=== PATIENT | male | born 1985 | race African-American/Black ===

== ENCOUNTER 2016-11-04 00:07 | Emergency (ER) | payer SELFPAY ==
[2016-11-04 00:18] VITALS: BP 157/70; PULSE 66; RESP 20; TEMP 98.5
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
[2016-11-04] MEDS ORDERED: HYDROcodone/APAP 5-325MG 1 EACH TAB PO STA (00:53)
--- NOTE | 2016-11-04 01:08 | XR ---
EXAMINATION TYPE: XR chest 1V DATE OF EXAM: 11/04/2016 12:53 AM COMPARISON: NONE HISTORY: Fall with back pain TECHNIQUE: Single frontal view of the chest is obtained. FINDINGS: Heart and mediastinum are normal. Lungs are clear. Diaphragm is normal. Bony thorax appear s normal. IMPRESSION: Normal chest. No pneumothorax.
--- NOTE | 2016-11-04 01:09 | XR ---
EXAMINATION TYPE: XR thoracic spine 2V DATE OF EXAM: 11/04/2016 12:53 AM COMPARISON: NONE HISTORY: Fall with back pain TECHNIQUE: 3 views FINDINGS: Thoracic vertebra have normal spacing and alignment. There is no sign of compression fractu re. There is no paraspinal mass. Posterior elements appear intact. IMPRESSION: Normal thoracic spine.
== END 2016-11-04 01:06 | disposition home or self-care (01) ==
LOC: EC 00:07
DX: M54.6 Pain in thoracic spine (principal); F17.200 Nicotine dependence, unspecified, uncomplicated
CPT/HCPCS: 71010; 72070; 99283

== ENCOUNTER 2021-02-05 19:47 | Inpatient (IN) | payer OTHER ==
[2021-02-05] MEDS ORDERED: SODIUM CHLORIDE 0.9% 1,000 ML IV STA (19:59)
[2021-02-05] MEDS ORDERED: DIAZEPAM 5 MG/ML 2 ML INJ IVP STA (19:59)
[2021-02-05] MEDS ORDERED: THIAMINE 100 MG/ML 2 ML VIAL IM STA (20:00)
--- NOTE | 2021-02-05 20:20 | ED ---
General Adult HPI - General Chief complaint: Seizure Stated complaint: Seizure Time Seen by Provider: 02/05/21 19:50 Source: patient, EMS, RN notes reviewed, old records reviewed Mode of arrival: EMS Limitations: no limitations - History of Present Illness Initial comments: 35-year-old male presenting with suspected seizure. EMS had been called with al tered mental status and seizure activity. Patient reports that he quit drinking alcohol approximately 2 or 3 days ago. He is alert and oriented to time my evaluation with no specific complaints, no headache, no focal numbness or weakness. He states that he was drinking approximately 2 pints daily and abruptly stopped 2 days prior. He is not on any antiepileptic medication and has history of 1 previous seizure several months ago. - Related Data Previous Rx's Medication Instructions Recorded Hydrocodone/Acetaminophen [[place] 1 each PO Q6HR PRN #10 tab 11/04/16 5-325] Ibuprofen [Motrin] 600 mg PO Q6HR PRN #20 tab 11/04/16 Orphenadrine [Norflex] 100 mg PO Q12H #10 tablet.er 11/04/16 Allergies Allergy/AdvReac Type Severity Reaction Status Date / Time No Known Allergies Allergy Verified 11/04/16 00:16 Review of Systems ROS Statement: Those systems with pertinent positive or pertinent negative responses have been documented in the HPI. ROS Other: All systems not noted in ROS Statement are negative. Past Medical History Past Medical History: No Reported History Additional Past Medical History / Comment(s): seziures x2 History of Any Multi-Drug Resistant Organisms: None Reported Past Surgical History: No Surgical Hx Reported Additional Past Surgical History / Comment(s): chest tube Past Psychological History: No Psychological Hx Reported Smoking Status: Current every day smoker Past Alcohol Use History: None Reported, Occasional Past Drug Use History: None Reported General Exam Limitations: no limitations General appearance: alert, in no apparent distress Head exam: Present: atraumatic, normocephalic Eye exam: Present: normal appearance, PERRL ENT exam: Present: normal exam Neck exam: Present: normal inspection. Absent: tenderness, meningismus Respiratory exam: Present: normal lung sounds bilaterally. Absent: respiratory distress, wheezes Cardiovascular Exam: Present: regular rate, normal rhythm GI/Abdominal exam: Present: soft. Absent: distended, tenderness, guarding Extremities exam: Present: normal inspection, normal capillary refill. Absent: pedal edema, calf tenderness Neurological exam: Present: alert, oriented X3, CN II-XII intact. Absent: motor sensory deficit Psychiatric exam: Present: anxious, other (Tremulous) Skin exam: Present: warm, dry, intact Course Vital Signs 02/05/21 02/05/21 19:57 21:05 Temperature 98.2 F Pulse Rate 111 H 93 Respiratory 18 16 Rate Blood Pressure 162/116 155/111 O2 Sat by Pulse 98 99 Oximetry EKG Findings - EKG Comments: EKG Findings:: Normal sinus rhythm, prolonged QT, rate of 86, MI interval 148, QRS duration 94, QTC 490 Medical Decision Making - Medical Decision Making 35-year-old male presenting with suspected seizure, alcohol withdrawal. Patient is alert and oriented, he is tremulous, upon arrival with no focal findings. CT performed negative for traumatic injury, negative for acute findings. Patient has normal CBC, he has some mild hyponatremia CO2 of 18 likely secondary to seizure. His magnesium is 0.9 which is replaced with 2 g of IV magnesium. He is given both Valium and ativan started on a CIWA Scale - Lab Data Result diagrams: 02/05/21 19:59 02/05/21 19:59 Lab Results 02/05/21 02/05/21 Range/Units 19:59 19:59 WBC 6.1 (3.8-10.6) k/uL RBC 3.97 L (4.30-5.90) m/uL Hgb 14.3 (13.0-17.5) gm/dL Hct 39.9 (39.0-53.0) % MCV 100.4 H (80.0-100.0) fL MCH 36.0 H (25.0-35.0) pg MCHC 35.9 (31.0-37.0) g/dL RDW 15.2 (11.5-15.5) % Plt Count 105 L (150-450) k/uL MPV 8.5 Neutrophils % 85 % Lymphocytes % 10 % Monocytes % 4 % Eosinophils % 0 % Basophils % 1 % Neutrophils # 5.2 (1.3-7.7) k/uL Lymphocytes # 0.6 L (1.0-4.8) k/uL Monocytes # 0.3 (0-1.0) k/uL Eosinophils # 0.0 (0-0.7) k/uL Basophils # 0.0 (0-0.2) k/uL Macrocytosis Slight Sodium 136 L (137-145) mmol/L Potassium 3.5 (3.5-5.1) mmol/L Chloride 99 (98-107) mmol/L Carbon Dioxide 18 L (22-30) mmol/L Anion Gap 19 mmol/L BUN 6 L (9-20) mg/dL Creatinine 0.74 (0.66-1.25) mg/dL Est GFR (CKD-EPI)AfAm >90 (>60 ml/min/1.73 sqM) Est GFR (CKD-EPI)NonAf >90 (>60 ml/min/1.73 sqM) Glucose 107 H (74-99) mg/dL Calcium 9.1 (8.4-10.2) mg/dL Magnesium 0.9 L* (1.6-2.3) mg/dL Total Bilirubin 1.4 H (0.2-1.3) mg/dL AST 331 H (17-59) U/L ALT 63 H (4-49) U/L Alkaline Phosphatase 181 H (38-126) U/L Total Protein 7.4 (6.3-8.2) g/dL Albumin 4.7 (3.5-5.0) g/dL Disposition Clinical Impression: Generalized seizure, Hypomagnesemia, Alcohol withdrawal Disposition: ADMITTED IP TO THIS [facility] Condition: Stable Is patient prescribed a controlled substance at d/c from ED?: No Referrals: None,Stated [Primary Care Provider] - 1-2 days Decision to Admit Reason: Admit from EC Decision Date: 02/05/21 Decision Time: 21:26
[2021-02-05 20:38] LABS: Basophils % (A) 1 %; Eosinophils % (A) 0 %; HCT 39.9 % (39.0-53.0); HGB 14.3 gm/dL (13.0-17.5); Lymphocytes # (A) 0.6 k/uL (1.0-4.8); Lymphocytes % (A) 10 %; MCHC 35.9 g/dL (31.0-37.0); MCV 100.4 fL (80.0-100.0); Macrocytosis Slight; Mean Platelet Volume 8.5; Monocytes # (A) 0.3 k/uL (0-1.0); Monocytes % (A) 4 %; Neutrophils # (A) 5.2 k/uL (1.3-7.7); Neutrophils % (A) 85 %; Platelet Count 105 k/uL (150-450); RBC 3.97 m/uL (4.30-5.90); RDW 15.2 % (11.5-15.5); WBC 6.1 k/uL (3.8-10.6)
[2021-02-05 20:50] LABS: ALT 63 U/L (4-49); AST 331 U/L (17-59); African American GFR (CKD) >90 (>60 ml/min/1.73 sqM); Albumin 4.7 g/dL (3.5-5.0); Alkaline Phosphatase 181 U/L (38-126); Anion Gap 19 mmol/L; Blood Urea Nitrogen 6 mg/dL (9-20); Calcium 9.1 mg/dL (8.4-10.2); Carbon Dioxide 18 mmol/L (22-30); Chloride 99 mmol/L (98-107); Glucose 107 mg/dL (74-99); Non-African American GFR(CKD) >90 (>60 ml/min/1.73 sqM); Potassium 3.5 mmol/L (3.5-5.1); Sodium 136 mmol/L (137-145); Total Bilirubin 1.4 mg/dL (0.2-1.3); Total Protein 7.4 g/dL (6.3-8.2)
[2021-02-05 21:00] LABS: Magnesium 0.9 mg/dL (1.6-2.3)
[2021-02-05] MEDS: LORazepam 2 MG/ML INJ IV PRN ×2 (21:02→22:23)
--- NOTE | 2021-02-05 21:12 | CT ---
EXAMINATION TYPE: CT brain wo con DATE OF EXAM: 02/05/2021 COMPARISON: None HISTORY: seizure CT DLP: 1105.4 mGycm Automated exposure control for dose reduction was used. Ventricles and sulci appear normal. There is no mass effect nor midline shift. There is no sign of in tracranial hemorrhage. Calvarium is intact. Skull base is intact. IMPRESSION: Negative unenhanced head CT scan.
[2021-02-05] MEDS: MAGNESIUM SULFATE-D5W PMX 1 GM in DEXTROSE/WATER 1 100ML.BAG IVPB SCH ×2 (21:26→22:24)
[2021-02-05] MEDS ORDERED: NALOXONE 0.4 MG/ML 1 ML VIAL IV PRN (21:29)
[2021-02-05] MEDS: SODIUM CHLORIDE 0.9% 1,000 ML IV SCH (22:22)
[2021-02-06] MEDS: LORazepam 2 MG/ML INJ IV PRN ×3 (00:40→08:19)
[2021-02-06] MEDS: THIAMINE 100 MG TAB PO SCH ×2 (06:36→17:39)
[2021-02-06 09:10] LABS: Basophils % (A) 0 %; Eosinophils % (A) 1 %; HCT 35.7 % (39.0-53.0); HGB 12.7 gm/dL (13.0-17.5); Lymphocytes % (A) 22 %; MCH 35.5 pg (25.0-35.0); MCHC 35.5 g/dL (31.0-37.0); MCV 99.9 fL (80.0-100.0); Macrocytosis Slight; Monocytes # (A) 0.2 k/uL (0-1.0); Monocytes % (A) 4 %; Neutrophils # (A) 3.2 k/uL (1.3-7.7); Neutrophils % (A) 71 %; RBC 3.57 m/uL (4.30-5.90); RDW 15.2 % (11.5-15.5); WBC 4.5 k/uL (3.8-10.6)
[2021-02-06 09:28] LABS: ALT 58 U/L (4-49); AST 367 U/L (17-59); African American GFR (CKD) >90 (>60 ml/min/1.73 sqM); Alkaline Phosphatase 149 U/L (38-126); Anion Gap 5 mmol/L; Blood Urea Nitrogen 3 mg/dL (9-20); Carbon Dioxide 28 mmol/L (22-30); Chloride 98 mmol/L (98-107); Glucose 165 mg/dL (74-99); Magnesium 1.5 mg/dL (1.6-2.3); Non-African American GFR(CKD) >90 (>60 ml/min/1.73 sqM); Sodium 131 mmol/L (137-145); Total Bilirubin 2.2 mg/dL (0.2-1.3); Total Protein 6.6 g/dL (6.3-8.2)
[2021-02-06 10:00] LABS: Potassium 2.6 mmol/L (3.5-5.1)
[2021-02-06 10:02] LABS: Platelet Count 89 k/uL (150-450)
[2021-02-06] MEDS ORDERED: Potassium Replacement Protocol 1 EACH MISC MISCELLANE PRN ×2 (10:20→19:26)
[2021-02-06] MEDS ORDERED: Magnesium Replacement Protocol 1 EACH MISC MISCELLANE PRN (10:21)
[2021-02-06] MEDS: MAGNESIUM SULFATE-D5W PMX 1 GM in DEXTROSE/WATER 1 100ML.BAG IVPB SCH ×2 (10:57→12:40)
[2021-02-06] MEDS: POTASSIUM CHLORIDE ER 20 MEQ TAB.ER PO SCH ×5 (10:57→20:41)
[2021-02-06] MEDS: SODIUM CHLORIDE 0.9% 1,000 ML IV SCH (10:58)
[2021-02-06 19:54] VITALS: TEMP 98.4
--- NOTE | 2021-02-06 20:11 | P.HPIM ---
History of Present Illness H&P Date: 02/06/21 Chief Complaint: seizures Patient is a 35-year-old male with known history of smoking, history of withdrawal seizures and alcohol use two-point today and recently quit 2 to 3 days ago presents to ER due to seizure activity. Patient was seen by his friend and EMS was called. Patient had altered mentation and was brought to ER. Patient states that he has been drinking 2 pints daily and abruptly stopped 2 days ago and trying to detox himself. Currently he is not taking any antiepileptic medications. Patient did have previous seizure several months ago due to alcohol withdrawal symptoms. Currently patient is awake alert and oriented. Denies any complaints of recent illnesses. No fever no chills. No cough or sputum production. No headache or dizziness or lightheadedness. No chest pain or shortness of the. No nausea vomiting or abdominal pain or diarrhea. Laboratory data showed WBC 6.1 hemoglobin 14.3 platelets 105 and MCV 100.4 Sodium 136 potassium 3.5 bicarb is 18 BUN 16 creatinine 0.74 magnesium 0.9 AST [birth year]1930 ALT 63 alk phos 181 and COVID-[address] head showed negative unenhanced head CT. EKG showed normal sinus rhythm blood pressure is 162/116 pulse at 111 and respiration 18 and pulse ox 98% on room air on admission. Review of Systems Constitutional: Patient denies any fever or chills . No generalized weakness or weight loss. Abdomen: Patient denied nausea vomiting and diarrhea and abdominal pain. Cardiovascular: Patient denies any chest pain or short of breath no palpitations. Respiratory: patient denied any cough or sputum production. No shortness of breath Neurologic: Patient denied any numbness or tingling headache. Musculoskeletal: Patient denies any complaints of joint swelling or deformity. Skin: Negative Psychiatric: Negative Endocrine: No heat or cold intolerance. No recent weight gain. Genitourinary: No dysuria or hematuria. All other 14 point ROS negative except the above Past Medical History Past Medical History: No Reported History Additional Past Medical History / Comment(s): seziures x2 History of Any Multi-Drug Resistant Organisms: None Reported Past Surgical History: No Surgical Hx Reported Additional Past Surgical History / Comment(s): chest tube Past Psychological History: No Psychological Hx Reported Smoking Status: Current every day smoker Past Alcohol Use History: Occasional Additional Past Alcohol Use History / Comment(s): 2 pints a day, recently quit 2 or 3 days ago Past Drug Use History: None Reported Medications and Allergies Home Medications Medication Instructions Recorded Confirmed Type No Known Home Medications 02/05/21 02/05/21 History Allergies Allergy/AdvReac Type Severity Reaction Status Date / Time No Known Allergies Allergy Verified 02/05/21 22:11 Physical Exam Vitals: Vital Signs Temp Pulse Pulse Resp BP BP Pulse Ox 02/06/21 11:09 98.6 F 82 20 151/98 02/06/21 07:41 98.5 F 74 20 163/114 02/06/21 03:30 78 18 02/06/21 02:45 98.1 F 78 18 178/116 97 02/06/21 00:35 93 18 178/119 98 02/05/21 21:45 83 18 161/113 98 02/05/21 21:05 93 16 155/111 99 02/05/21 19:57 98.2 F 111 H 18 162/116 98 Intake and Output 02/05/21 02/06/21 02/06/21 22:59 06:59 14:59 Intake Total 0 Output Total 1450 Balance -1450 Intake: Oral 0 Output: Urine 1450 Other: # Voids 1 Weight 77.111 kg 91.9 kg PHYSICAL EXAMINATION: Patient is lying in the bed comfortably, no acute distress, awake alert and oriented.shaky. HEENT: Normocephalic. Neck is supple. Pupils reactive. Nostrils clear. Oral cavity is moist. Ears reveal no drainage. Neck reveals no JVD, carotid bruits, or thyromegaly. CHEST EXAMINATION: Trachea is central. Symmetrical expansion. Lung swain clear to auscultation and percussion. CARDIAC: Normal S1, S2 with no gallops. No murmurs ABDOMEN: Soft. Bowel sounds normal. No organomegaly. No abdominal bruits. Extremities: reveal no edema. No clubbing or cyanosis Neurologically awake, alert, oriented x3 with well-coordinated movements. No focal deficits noted Skin: No rash or skin lesions. Psychiatric: Coperative. Nonsuicidal Musculoskeletal: No joint swelling or deformity. Normal range of motion. Results CBC & Chem 7: 02/06/21 08:43 02/06/21 18:46 Labs: Abnormal Lab Results - Last 24 Hours (Table) 02/05/21 02/05/21 02/06/21 Range/Units 19:59 19:59 08:43 RBC 3.97 L 3.57 L (4.30-5.90) m/uL Hgb 12.7 L (13.0-17.5) gm/dL Hct 35.7 L (39.0-53.0) % MCV 100.4 H (80.0-100.0) fL MCH 36.0 H 35.5 H (25.0-35.0) pg Plt Count 105 L 89 L (150-450) k/uL Lymphocytes # 0.6 L (1.0-4.8) k/uL Sodium 136 L (137-145) mmol/L Potassium (3.5-5.1) mmol/L Carbon Dioxide 18 L (22-30) mmol/L BUN 6 L (9-20) mg/dL Glucose 107 H (74-99) mg/dL Magnesium 0.9 L* (1.6-2.3) mg/dL Total Bilirubin 1.4 H (0.2-1.3) mg/dL AST 331 H (17-59) U/L ALT 63 H (4-49) U/L Alkaline Phosphatase 181 H (38-126) U/L 02/06/21 Range/Units 08:43 RBC (4.30-5.90) m/uL Hgb (13.0-17.5) gm/dL Hct (39.0-53.0) % MCV (80.0-100.0) fL MCH (25.0-35.0) pg Plt Count (150-450) k/uL Lymphocytes # (1.0-4.8) k/uL Sodium 131 L (137-145) mmol/L Potassium 2.6 L* (3.5-5.1) mmol/L Carbon Dioxide (22-30) mmol/L BUN 3 L (9-20) mg/dL Glucose 165 H (74-99) mg/dL Magnesium 1.5 L (1.6-2.3) mg/dL Total Bilirubin 2.2 H (0.2-1.3) mg/dL AST 367 H (17-59) U/L ALT 58 H (4-49) U/L Alkaline Phosphatase 149 H (38-126) U/L Thrombosis Risk Factor Assmnt - DVT/VTE Prophylaxis DVT/VTE Prophylaxis: Pharmacologic Prophylaxis ordered, Mechanical Prophylaxis ordered - Choose All That Apply Any of the Below Risk Factors Present?: No Other Risk Factors: No Other congenital or acquired thrombophilia - If yes, enter type in comment: No Thrombosis Risk Factor Assessment Level: Very Low Risk Assessment and Plan Assessment: Acute alcohol withdrawal seizures Alcohol abuse 2 pints daily quit 2 to 3 days ago Acute alcohol withdrawal symptoms Severe hypokalemia and hypomagnesemia Alcoholic hepatitis with elevated liver enzymes Hypovolemic hyponatremia Macrocytosis and thrombocytopenia secondary to alcoholic liver disease DVT prophylaxis with early ambulation Plan: Patient will be continued on IV hydration with normal saline. Seizure precautions and fall precautions and continue with alcohol withdrawal protocol. Currently thiamine and multivitamins and replace potassium and magnesium. Follow-up closely and further recommendations based on clinical course. Time with Patient: Greater than 30
[2021-02-07 00:13] VITALS: PULSE 95; RESP 16
[2021-02-07] MEDS: LORazepam 2 MG/ML INJ IV PRN ×3 (01:42→06:40)
[2021-02-07 05:27] VITALS: BP 167/90
[2021-02-07] MEDS: THIAMINE 100 MG TAB PO SCH (06:41)
--- NOTE | 2021-02-26 15:32 | P.DS ---
Providers Date of admission: 02/05/21 21:29 Expected date of discharge: 02/07/21 Attending physician: Edna Nava Primary care physician: Stated None Hospital Course: Discharge diagnosis Acute alcohol withdrawal seizures Alcohol abuse 2 pints daily quit 2 to 3 days ago Acute alcohol withdrawal symptoms Severe hypokalemia and hypomagnesemia Alcoholic hepatitis with elevated liver enzymes Hypovolemic hyponatremia Macrocytosis and thrombocytopenia secondary to alcoholic liver disease DVT prophylaxis with early ambulation Hospital course Patient is a 35-year-old male with known history of smoking, history of withdrawal seizures and alcohol use two-point today and recently quit 2 to 3 days ago presents to ER due to seizure activity. Patient was seen by his friend and EMS was called. Patient had altered mentation and was brought to ER. Patient states that he has been drinking 2 pints daily and abruptly stopped 2 days ago and trying to detox himself. Currently he is not taking any antiepileptic medications. Patient did have previous seizure several months ago due to alcohol withdrawal symptoms. Currently patient is awake alert and oriented. Denies any complaints of recent illnesses. No fever no chills. No cough or sputum production. No headache or dizziness or lightheadedness. No chest pain or shortness of the. No nausea vomiting or abdominal pain or diarrhea. Laboratory data showed WBC 6.1 hemoglobin 14.3 platelets 105 and MCV 100.4 Sodium 136 potassium 3.5 bicarb is 18 BUN 16 creatinine 0.74 magnesium 0.9 AST [birth year]28/1930 ALT 63 alk phos 181 and COVID-[address] head showed negative unenhanced head CT. EKG showed normal sinus rhythm blood pressure is 162/116 pulse at 111 and respiration 18 and pulse ox 98% on room air on admission. Patient was continued on IV hydration with normal saline. Seizure precautions and fall precautions and continue with alcohol withdrawal protocol. Currently thiamine and multivitamins and replace potassium and magnesium. Patient did not have any further episodes of seizures overnight. Continued on all call withdrawal protocol. Otherwise patient left AGAINST MEDICAL ADVICE today. Patient was counseled extensively for alcohol abstinence. Patient left againest medical advice.. Patient Condition at Discharge: Fair Plan - Discharge Summary Discharge Rx Participant: No New Discharge Prescriptions: No Action Ibuprofen [Motrin] 400 mg PO Q6HR PRN tab PRN Reason: Mild Pain Or Fever > 100.5 amLODIPine [Norvasc] 5 mg PO DAILY #30 tab Acetaminophen Tab [Tylenol] 650 mg PO Q6HR PRN tab PRN Reason: Mild Pain Or Fever > 100.5 levETIRAcetam [Keppra] 500 mg PO BID #60 tab Thiamine [Vitamin B-1] 100 mg PO BID-W/MEALS #60 tab Discharge Medication List Acetaminophen Tab [Tylenol] 650 mg PO Q6HR PRN tab 02/19/21 [Rx] Ibuprofen [Motrin] 400 mg PO Q6HR PRN tab 02/19/21 [Rx] Thiamine [Vitamin B-1] 100 mg PO BID-W/MEALS #60 tab 02/19/21 [Rx] amLODIPine [Norvasc] 5 mg PO DAILY #30 tab 02/19/21 [Rx] levETIRAcetam [Keppra] 500 mg PO BID #60 tab 02/19/21 [Rx] Follow up Appointment(s)/Referral(s): None,Stated [Primary Care Provider] - 1-2 days Discharge Disposition: Left Against Medical Advice
== END 2021-02-07 06:40 | disposition left against medical advice (07) | DRG 894 ==
LOC: EC 19:47 → 3SCARD 21:29
PROVIDERS: ADMIT Hospitalist; ATTEND Hospitalist
DX: F10.139 Alcohol abuse with withdrawal, unspecified (principal); E87.1 Hypo-osmolality and hyponatremia; K70.10 Alcoholic hepatitis without ascites; E83.42 Hypomagnesemia; F17.200 Nicotine dependence, unspecified, uncomplicated; E87.6 Hypokalemia; E86.1 Hypovolemia; R56.9 Unspecified convulsions; D69.59 Other secondary thrombocytopenia; D75.89 Other specified diseases of blood and blood-forming organs; Z79.899 Other long term (current) drug therapy; Z20.822 Contact with and (suspected) exposure to COVID-19
CPT/HCPCS: 36415; 70450; 80053; 83735; 84132; 85025; 85730; 87635; 93005; 96361; 96372; 96374; 96375; 99285

== ENCOUNTER 2021-02-08 06:07 | Emergency (ER) | payer OTHER ==
[2021-02-08 06:43] VITALS: BP 121/85; PULSE 119; RESP 16
[2021-02-08] MEDS ORDERED: SODIUM CHLORIDE 0.9% 1,000 ML IV STA (07:15)
[2021-02-08] MEDS ORDERED: LORazepam 2 MG/ML INJ IV STA (07:15)
--- NOTE | 2021-02-08 07:17 | ED ---
General Adult HPI - General Chief complaint: Seizure Stated complaint: Seizure Time Seen by Provider: 02/08/21 06:59 Source: patient, RN notes reviewed Mode of arrival: ambulatory Limitations: no limitations - History of Present Illness Initial comments: Patient is a pleasant 35-year-old male presenting to the emergency department following having a seizure this morning. Patient states this was witnessed by his roommate. Incident lasted approximately 5 minutes. Patient had generalized tonic-clonic reported activity. Patient states he was confuse following this however is feeling close to normal at this point. Patient states he recently quit taking alcohol. Patient states following the seizure he did drink a little bit of alcohol to help himself feel better. Patient was in the hospital just 2 days ago and states he left. Patient denies any injury or recent illness. - Related Data Home Medications Medication Instructions Recorded Confirmed No Known Home Medications 02/05/21 02/08/21 Allergies Allergy/AdvReac Type Severity Reaction Status Date / Time No Known Allergies Allergy Verified 02/08/21 07:42 Review of Systems ROS Statement: Those systems with pertinent positive or pertinent negative responses have been documented in the HPI. ROS Other: All systems not noted in ROS Statement are negative. Constitutional: Denies: weakness Eyes: Denies: eye pain ENT: Denies: ear pain Respiratory: Denies: cough Cardiovascular: Denies: chest pain Endocrine: Denies: fatigue Gastrointestinal: Denies: abdominal pain Genitourinary: Denies: urgency Musculoskeletal: Denies: back pain Skin: Denies: rash Neurological: Reports: as per HPI. Denies: headache Past Medical History Past Medical History: Seizure Disorder Additional Past Medical History / Comment(s): PNEUMOTHORAX History of Any Multi-Drug Resistant Organisms: None Reported Past Surgical History: No Surgical Hx Reported Additional Past Surgical History / Comment(s): LEFT ARM SURGERY, Past Anesthesia/Blood Transfusion Reactions: No Reported Reaction Past Psychological History: Anxiety, Depression Smoking Status: Current every day smoker Past Alcohol Use History: Daily Past Drug Use History: Marijuana - Past Family History Father Family Medical History: Unable to Obtain Mother Family Medical History: Coronary Artery Disease (CAD) General Exam Limitations: no limitations General appearance: alert, in no apparent distress Head exam: Present: atraumatic Eye exam: Present: normal appearance, PERRL Neck exam: Present: normal inspection. Absent: tenderness, meningismus Respiratory exam: Present: normal lung sounds bilaterally Cardiovascular Exam: Present: regular rate, normal rhythm GI/Abdominal exam: Present: soft. Absent: distended, tenderness Extremities exam: Present: normal inspection Neurological exam: Present: alert, oriented X3, CN II-XII intact. Absent: motor sensory deficit Expanded Neurological exam: Present: protecting the airway Patient oriented to: Present: person, place, time Speech: Present: fluid speech Cranial nerves: EOM's Intact: Normal Sensory exam: Upper Extremity Light Touch: Normal, Lower Extremity Light Touch: Normal Motor strength exam: RUE: 5, LUE: 5, RLE: 5, LLE: 5 Eye Response: (4) open spontaneously Motor Response: (6) obeys commands Verbal Response: (5) oriented Psychiatric exam: Present: normal affect, normal mood Skin exam: Present: normal color Course Vital Signs 02/08/21 06:39 Pulse Rate 119 H Respiratory 16 Rate Blood Pressure 121/85 O2 Sat by Pulse 97 Oximetry EKG Findings - EKG Comments: EKG Findings:: Sinus tachycardia 102. ID 152. QRS 106. QT 370. QTc 492. Normal axis. Normal QRS. No acute ST change. Medical Decision Making - Medical Decision Making Patient has eloped. Patient was alert and oriented 3. Nursing did state steady gait. - Lab Data Result diagrams: 02/08/21 07:21 02/08/21 07:21 Lab Results 02/08/21 02/08/21 Range/Units 07:21 07:21 WBC 6.3 (3.8-10.6) k/uL RBC 3.86 L (4.30-5.90) m/uL Hgb 14.1 (13.0-17.5) gm/dL Hct 39.2 (39.0-53.0) % MCV 101.5 H (80.0-100.0) fL MCH 36.6 H (25.0-35.0) pg MCHC 36.0 (31.0-37.0) g/dL RDW 15.7 H (11.5-15.5) % Plt Count 104 L (150-450) k/uL MPV 8.9 Neutrophils % 64 % Lymphocytes % 26 % Monocytes % 7 % Eosinophils % 1 % Basophils % 1 % Neutrophils # 4.0 (1.3-7.7) k/uL Lymphocytes # 1.6 (1.0-4.8) k/uL Monocytes # 0.4 (0-1.0) k/uL Eosinophils # 0.1 (0-0.7) k/uL Basophils # 0.0 (0-0.2) k/uL Macrocytosis Slight Sodium 141 (137-145) mmol/L Potassium 3.3 L (3.5-5.1) mmol/L Chloride 106 (98-107) mmol/L Carbon Dioxide 23 (22-30) mmol/L Anion Gap 12 mmol/L BUN 11 (9-20) mg/dL Creatinine 1.68 H (0.66-1.25) mg/dL Est GFR (CKD-EPI)AfAm 59 (>60 ml/min/1.73 sqM) Est GFR (CKD-EPI)NonAf 51 (>60 ml/min/1.73 sqM) Glucose 105 H (74-99) mg/dL Calcium 9.5 (8.4-10.2) mg/dL Magnesium 1.9 (1.6-2.3) mg/dL Total Bilirubin 1.1 (0.2-1.3) mg/dL AST 196 H (17-59) U/L ALT 67 H (4-49) U/L Alkaline Phosphatase 183 H (38-126) U/L Total Protein 7.4 (6.3-8.2) g/dL Albumin 4.5 (3.5-5.0) g/dL Serum Alcohol 316 H* mg/dL Disposition Clinical Impression: Generalized seizure, Alcohol intoxication Disposition: Left Against Medical Advice Is patient prescribed a controlled substance at d/c from ED?: No Referrals: None,Stated [Primary Care Provider] - 1-2 days Time of Disposition: 08:46
[2021-02-08 07:37] LABS: Basophils % (A) 1 %; Eosinophils # (A) 0.1 k/uL (0-0.7); Eosinophils % (A) 1 %; HCT 39.2 % (39.0-53.0); HGB 14.1 gm/dL (13.0-17.5); Lymphocytes # (A) 1.6 k/uL (1.0-4.8); Lymphocytes % (A) 26 %; MCH 36.6 pg (25.0-35.0); MCV 101.5 fL (80.0-100.0); Macrocytosis Slight; Mean Platelet Volume 8.9; Monocytes # (A) 0.4 k/uL (0-1.0); Monocytes % (A) 7 %; Neutrophils % (A) 64 %; Platelet Count 104 k/uL (150-450); RBC 3.86 m/uL (4.30-5.90); RDW 15.7 % (11.5-15.5); WBC 6.3 k/uL (3.8-10.6)
[2021-02-08 07:50] LABS: Albumin 4.5 g/dL (3.5-5.0); Calcium 9.5 mg/dL (8.4-10.2); Magnesium 1.9 mg/dL (1.6-2.3); Potassium 3.3 mmol/L (3.5-5.1); Total Bilirubin 1.1 mg/dL (0.2-1.3); Total Protein 7.4 g/dL (6.3-8.2)
== END 2021-02-08 08:45 | disposition left against medical advice (07) ==
LOC: EC 06:07
DX: G40.909 Epilepsy, unspecified, not intractable, without status epilepticus (principal); F10.129 Alcohol abuse with intoxication, unspecified; F17.200 Nicotine dependence, unspecified, uncomplicated
CPT/HCPCS: 93005; 80053; 83735; 85025; 99284; 96360; G0480; 80320

== ENCOUNTER 2021-02-18 14:57 | Inpatient (IN) | payer OTHER ==
[2021-02-18] MEDS ORDERED: ACETAMINOPHEN TAB 500 MG TAB PO STA (15:10)
[2021-02-18] MEDS ORDERED: SODIUM CHLORIDE 0.9% 500 ML 500 ML IV ONE (15:10)
[2021-02-18] MEDS ORDERED: SODIUM CHLORIDE 0.9% 1,000 ML IV ONE (15:10)
[2021-02-18] MEDS ORDERED: LIDOCAINE 1% INJ 10MG/ML (20 ML MDV) SQ ONE (15:13)
[2021-02-18 15:21] LABS: Basophils # (A) 0.1 k/uL (0-0.2); Basophils % (A) 1 %; Eosinophils # (A) 0.1 k/uL (0-0.7); Eosinophils % (A) 1 %; HCT 40.5 % (39.0-53.0); HGB 14.2 gm/dL (13.0-17.5); Lymphocytes # (A) 1.1 k/uL (1.0-4.8); Lymphocytes % (A) 10 %; MCH 35.7 pg (25.0-35.0); MCV 102.2 fL (80.0-100.0); Macrocytosis Slight; Mean Platelet Volume 7.8; Monocytes # (A) 0.4 k/uL (0-1.0); Monocytes % (A) 4 %; Neutrophils # (A) 9.1 k/uL (1.3-7.7); Neutrophils % (A) 84 %; RBC 3.97 m/uL (4.30-5.90); RDW 14.5 % (11.5-15.5); WBC 10.8 k/uL (3.8-10.6)
[2021-02-18 15:27] LABS: Platelet Count 172 k/uL (150-450)
[2021-02-18 15:30] LABS: AST 234 U/L (17-59); African American GFR (CKD) >90 (>60 ml/min/1.73 sqM); Albumin 4.8 g/dL (3.5-5.0); Alcohol <10 mg/dL; Alkaline Phosphatase 181 U/L (38-126); Anion Gap 16 mmol/L; Blood Urea Nitrogen 6 mg/dL (9-20); Calcium 9.4 mg/dL (8.4-10.2); Carbon Dioxide 17 mmol/L (22-30); Chloride 102 mmol/L (98-107); Glucose 182 mg/dL (74-99); Non-African American GFR(CKD) >90 (>60 ml/min/1.73 sqM); Phosphorus 1.8 mg/dL (2.5-4.5); Potassium 3.1 mmol/L (3.5-5.1); Sodium 135 mmol/L (137-145); Total Bilirubin 2.8 mg/dL (0.2-1.3); Total Protein 7.5 g/dL (6.3-8.2)
[2021-02-18 15:36] LABS: ALT 58 U/L (4-49)
[2021-02-18 15:43] LABS: Magnesium 0.9 mg/dL (1.6-2.3)
[2021-02-18] MEDS ORDERED: SODIUM CHLORIDE 0.9% 1,000 ML IV STA (15:50)
--- NOTE | 2021-02-18 15:50 | ED ---
Fall HPI - General Chief Complaint: Fall Stated Complaint: Fall Source: patient Mode of arrival: ambulatory - History of Present Illness Initial Comments: The patient apparently was on the phone with a friend when he went unconscious. This apparently was unwitnessed. He does not remember what happened. He apparently fell and obtained a laceration underneath his left eyebrow. He complains of a slight headache. He apparently was walking back from the [employer] [place] with a pint of alcohol but didn't not start drinking it as of yet. He denies any alcohol usage today. He does have a significant history of alcohol abuse. He also has a history of a seizure disorder. He states that he thinks that he may have had a seizure. He relates that he is not on any medications for his seizures as of yet. These may be alcohol withdrawal related types of seizures. He denies any other injuries. He states his last tetanus was within 5 years. He was here twice in the last month and apparently eloped or left AGAINST MEDICAL ADVICE. No other complaints or modifying factors. He apparently has had seizures for the last couple of years. He has never followed up with a neurologist. He states that his last drink was over a week ago. - Related Data Home Medications Medication Instructions Recorded Confirmed No Known Home Medications 02/05/21 02/18/21 Allergies Allergy/AdvReac Type Severity Reaction Status Date / Time No Known Allergies Allergy Verified 02/18/21 16:49 Review of Systems ROS Statement: Those systems with pertinent positive or pertinent negative responses have been documented in the HPI. ROS Other: All systems not noted in ROS Statement are negative. Past Medical History Past Medical History: Seizure Disorder Additional Past Medical History / Comment(s): PNEUMOTHORAX History of Any Multi-Drug Resistant Organisms: None Reported Past Surgical History: No Surgical Hx Reported Additional Past Surgical History / Comment(s): LEFT ARM SURGERY, Past Anesthesia/Blood Transfusion Reactions: No Reported Reaction Past Psychological History: Anxiety, Depression Smoking Status: Current every day smoker Past Alcohol Use History: Daily Past Drug Use History: Marijuana - Past Family History Father Family Medical History: Unable to Obtain Mother Family Medical History: Coronary Artery Disease (CAD) General Exam - General Exam Comments Initial Comments: GENERAL: The patient is well nourished and well hydrated. VITAL SIGNS: Heart rate, blood pressure, respiratory rate reviewed as recorded in nurse's notes. EYES: Pupils are round and reactive. Extraocular movements are intact. No conjunctival / lid redness or swelling. ENT: There is a 2 cm superficial laceration directly under the left eyebrow. Airway is patent. Throat is clear. There is left maxillary swelling and significant tenderness with moderate abrasion noted. NECK: Nontender. No swelling or evidence of injury otherwise. No subcutaneous emphysema. Trachea is midline. No thyroid mass. HEART: Regular rate and rhythm. Good peripheral pulses. LUNGS/CHEST: Breath sounds clear and equal bilaterally. No rales, rhonchi, or wheezes. No ecchymosis, subcutaneous emphysema, or tenderness. ABDOMEN: Abdomen soft without tenderness. No palpable masses or organomegaly. No peritoneal signs. No abdominal wall swelling or ecchymosis. EXTREMITIES: No extremity tenderness. Normal muscle tone and function. No thoracolumbar tenderness. NEUROLOGIC: Sensation is grossly intact. Cranial nerve exam reveals face is symmetrical, tongue is midline, speech is clear. SKIN: No abrasions or ecchymosis is noted. No induration or masses noted. Laceration is noted underneath the left eyebrow as above. Abrasion noted to the left face. PSYCHIATRIC: Alert and oriented. Appropriate behavior and judgment. Limitations: no limitations Course Vital Signs 02/18/21 02/18/21 02/18/21 15:00 16:15 18:00 Temperature 98 F Pulse Rate 107 H 94 96 Respiratory 18 16 16 Rate Blood Pressure 172/118 169/112 185/116 O2 Sat by Pulse 98 96 96 Oximetry 02/18/21 19:03 Temperature Pulse Rate 104 H Respiratory 16 Rate Blood Pressure 173/108 O2 Sat by Pulse 96 Oximetry Medical Decision Making - Medical Decision Making The patient was seen and examined. All diagnostics are reviewed. The old records are also reviewed. His magnesium came back very low and he receives 2 g of magnesium intravenously. His CO2 was also low at 17 and he receives ample fluid hydration. The EKG shows a sinus tachycardia at a rate of 110. There is no acute ST-T wave changes noted. The [place] intervals 144, QRS duration is 94, and the QTc interval is 473. He does receive some Tylenol for his headache. The patient initially had a computed tomography scan of the brain and facial bones and this does not show any fracture or acute pathology other than some soft tissue swelling to the left face. While walking to the bathroom with the nurse, the patient had another seizure. He fell and hit his head on the rail. He had approximately 1 minute long tonic clonic seizure witnessed by myself. He then received 2 mg of Ativan intravenously. Keppra was also started intravenously. A repeat computed tomography scan of the brain and cervical spine was then done and does not show any acute abnormalities. Due to his recurrent seizures, dehydration, hypomagnesemia it is felt as though he would require admission to the hospital. The laboratory did come back showing a significant decrease in the CO2 at 17. The magnesium is severely low as well. In addition, his phosphorus is low and this is replaced. His potassium is also low and this is replaced both intravenously and orally. He is agreeable with admission. He is back to normal mental status on recheck. It is felt as though his seizures may potentially be intrinsic in nature although I'll call withdrawal still certainly is possible. He will be maintained on CIWA protocol. Case will be discussed with internal medicine and he will be admitted with neurology to consult. - Lab Data Result diagrams: 02/18/21 15:14 02/18/21 15:14 Lab Results 02/18/21 02/18/21 02/18/21 Range/Units 15:14 15:14 15:14 WBC 10.8 H (3.8-10.6) k/uL RBC 3.97 L (4.30-5.90) m/uL Hgb 14.2 (13.0-17.5) gm/dL Hct 40.5 (39.0-53.0) % MCV 102.2 H (80.0-100.0) fL MCH 35.7 H (25.0-35.0) pg MCHC 35.0 (31.0-37.0) g/dL RDW 14.5 (11.5-15.5) % Plt Count 172 D (150-450) k/uL MPV 7.8 Neutrophils % 84 % Lymphocytes % 10 % Monocytes % 4 % Eosinophils % 1 % Basophils % 1 % Neutrophils # 9.1 H (1.3-7.7) k/uL Lymphocytes # 1.1 (1.0-4.8) k/uL Monocytes # 0.4 (0-1.0) k/uL Eosinophils # 0.1 (0-0.7) k/uL Basophils # 0.1 (0-0.2) k/uL Macrocytosis Slight PT 12.2 H (9.0-12.0) sec INR 1.2 H (<1.2) APTT 20.1 L (22.0-30.0) sec Sodium 135 L (137-145) mmol/L Potassium 3.1 L (3.5-5.1) mmol/L Chloride 102 (98-107) mmol/L Carbon Dioxide 17 L (22-30) mmol/L Anion Gap 16 mmol/L BUN 6 L (9-20) mg/dL Creatinine 0.77 (0.66-1.25) mg/dL Est GFR (CKD-EPI)AfAm >90 (>60 ml/min/1.73 sqM) Est GFR (CKD-EPI)NonAf >90 (>60 ml/min/1.73 sqM) Glucose 182 H (74-99) mg/dL Calcium 9.4 (8.4-10.2) mg/dL Phosphorus 1.8 L (2.5-4.5) mg/dL Magnesium 0.9 L* (1.6-2.3) mg/dL Total Bilirubin 2.8 H (0.2-1.3) mg/dL AST 234 H (17-59) U/L ALT 58 H (4-49) U/L Alkaline Phosphatase 181 H (38-126) U/L Total Protein 7.5 (6.3-8.2) g/dL Albumin 4.8 (3.5-5.0) g/dL Serum Alcohol <10 mg/dL Disposition Clinical Impression: Syncope, Seizure, Head injury, Facial laceration, Alcohol abuse, Dehydration, Hypomagnesemia, Hypokalemia, Hypophosphatemia, Alcohol withdrawal, Fall, Facial contusion, Abrasion, Transaminitis Disposition: ADMITTED IP TO THIS [facility] Condition: Fair Referrals: None,Stated [Primary Care Provider] - 1-2 days Time of Disposition: 19:27 Decision Date: 02/18/21 Decision Time: 19:27
[2021-02-18 16:01] LABS: INR 1.2 (<1.2); Partial Thromboplastin Time 20.1 sec (22.0-30.0); Prothrombin Time 12.2 sec (9.0-12.0)
[2021-02-18] MEDS: MAGNESIUM SULFATE-D5W PMX 1 GM in DEXTROSE/WATER 1 100ML.BAG IVPB SCH ×2 (16:10→18:11)
--- NOTE | 2021-02-18 16:22 | CT ---
EXAMINATION TYPE: CT brain wo con DATE OF EXAM: 02/18/2021 COMPARISON: CT brain 13 days ago HISTORY: Headache, post trauma to left side face CT DLP: 1083.8 mGycm. Automated Exposure Control for Dose Reduction was Utilized. TECHNIQUE: CT scan of the head is performed without contrast. FINDINGS: There is no acute intracranial hemorrhage, mass effect, or midline shift identified. The ventricles and sulci are within normal limits in size. [id number] mucosal thickening in the vi sualized portion of the right maxillary sinus. The calvarium is intact. Soft tissues cerumen left ext ernal auditory canal. The calvarium is intact. IMPRESSION: No acute intracranial hemorrhage or midline shift is seen. No significant change from pr ior.
[2021-02-18] MEDS ORDERED: MORPHINE SULFATE 4 MG/ML SYRINGE IV STA (16:48)
[2021-02-18] MEDS ORDERED: hydrALAZINE HCL 20 MG/ML 1 ML VIAL IVP STA (17:02)
[2021-02-18] MEDS ORDERED: LORazepam 2 MG/ML INJ IV STA ×3 (18:08→18:11)
[2021-02-18] MEDS ORDERED: levETIRAcetam IV 1,000 MG in SALINE 1 100ML.BAG IVPB STA ×2 (18:09→18:11)
--- NOTE | 2021-02-18 18:12 | CT ---
EXAMINATION TYPE: CT facial bones wo con DATE OF EXAM: 02/18/2021 COMPARISON: None HISTORY: Fall, possible seizure. Patient has a large contusion/laceration on left side cheek bone are a. CT DLP: 797.2 mGycm Automated exposure control for dose reduction was used. Images were obtained from the bottom of the mandible to the top of the frontal sinuses without contra st. The mandibular ring is intact. Temporomandibular joints are intact. Zygomatic arches appear normal. T here is mucosal thickening right maxillary sinus. There is soft tissue swelling and edema anterior to the left zygoma. The maxilla is intact. There is no evidence of a blowout fracture. The orbital margins are intact. There is no retro-orbital mass. There is left lateral periorbital sof t tissue swelling. The nasal bone appears intact. There is normal aeration of the mastoid sinuses. IMPRESSION: Left side facial soft tissue swelling lateral and anterior to the orbit and maxilla and zygoma. No fracture. Right maxillary sinusitis.
--- NOTE | 2021-02-18 19:12 | CT ---
EXAMINATION TYPE: CT brain cspine wo con DATE OF EXAM: 02/18/2021 COMPARISON: 02/18/2021 HISTORY: Fall while in ER. Possible seizure. CT DLP: 1471.8 mGycm Automated exposure control for dose reduction was used. Ventricles have normal size. There is no mass effect nor midline shift. There is no sign of intracran ial hemorrhage. Calvarium is intact. There is left side periorbital soft tissue swelling. Cervical vertebra have fairly normal spacing and alignment. Posterior elements are intact. Facet join ts are intact. There is no evidence of a fracture. IMPRESSION: Negative CT scan of the brain. Left side periorbital soft tissue swelling. Negative CT scan cervical spine. Brain unchanged compared to exam earlier today.
[2021-02-18] MEDS ORDERED: POTASSIUM CHLORIDE 20 MEQ in WATER FOR INJECTION 1 100ML.BAG IVPB STA (19:22)
[2021-02-18] MEDS ORDERED: POTASSIUM CHLORIDE ER 20 MEQ TAB.ER PO STA (19:23)
[2021-02-18] MEDS ORDERED: IBUPROFEN 400 MG TAB PO PRN (19:28)
[2021-02-18] MEDS ORDERED: ACETAMINOPHEN TAB 325 MG TAB PO PRN (19:28)
[2021-02-18] MEDS ORDERED: ONDANSETRON 4 MG/2 ML VIAL IVP PRN (19:28)
[2021-02-18] MEDS ORDERED: THIAMINE 100 MG/ML 2 ML VIAL IM STA (19:32)
[2021-02-18] MEDS ORDERED: LORazepam 2 MG/ML INJ IV PRN ×3 (19:32)
--- NOTE | 2021-02-18 19:44 | ED ---
Medical Decision Making - Medical Decision Making Addendum: Procedure note: The patient has 2 lacerations directly underneath the left eye. Both of these are approximately 1.5 cm in length. The wounds are thoroughly cleansed. There are anesthetized with lidocaine plain, approximately 3 ml. Excellent anesthesia is identified. Wounds are explored and no foreign bodies are identified. Both were closed with 4 simple interrupted 6-0 nylon sutures. Excellent closure is obtained. He does have moderate left facial swelling and some ice is also applied. Bacitracin ointment is also ordered to be applied to the wounds. - Lab Data Result diagrams: 02/18/21 15:14 02/18/21 15:14 Lab Results 02/18/21 02/18/21 02/18/21 Range/Units 15:14 15:14 15:14 WBC 10.8 H (3.8-10.6) k/uL RBC 3.97 L (4.30-5.90) m/uL Hgb 14.2 (13.0-17.5) gm/dL Hct 40.5 (39.0-53.0) % MCV 102.2 H (80.0-100.0) fL MCH 35.7 H (25.0-35.0) pg MCHC 35.0 (31.0-37.0) g/dL RDW 14.5 (11.5-15.5) % Plt Count 172 D (150-450) k/uL MPV 7.8 Neutrophils % 84 % Lymphocytes % 10 % Monocytes % 4 % Eosinophils % 1 % Basophils % 1 % Neutrophils # 9.1 H (1.3-7.7) k/uL Lymphocytes # 1.1 (1.0-4.8) k/uL Monocytes # 0.4 (0-1.0) k/uL Eosinophils # 0.1 (0-0.7) k/uL Basophils # 0.1 (0-0.2) k/uL Macrocytosis Slight PT 12.2 H (9.0-12.0) sec INR 1.2 H (<1.2) APTT 20.1 L (22.0-30.0) sec Sodium 135 L (137-145) mmol/L Potassium 3.1 L (3.5-5.1) mmol/L Chloride 102 (98-107) mmol/L Carbon Dioxide 17 L (22-30) mmol/L Anion Gap 16 mmol/L BUN 6 L (9-20) mg/dL Creatinine 0.77 (0.66-1.25) mg/dL Est GFR (CKD-EPI)AfAm >90 (>60 ml/min/1.73 sqM) Est GFR (CKD-EPI)NonAf >90 (>60 ml/min/1.73 sqM) Glucose 182 H (74-99) mg/dL Calcium 9.4 (8.4-10.2) mg/dL Phosphorus 1.8 L (2.5-4.5) mg/dL Magnesium 0.9 L* (1.6-2.3) mg/dL Total Bilirubin 2.8 H (0.2-1.3) mg/dL AST 234 H (17-59) U/L ALT 58 H (4-49) U/L Alkaline Phosphatase 181 H (38-126) U/L Total Protein 7.5 (6.3-8.2) g/dL Albumin 4.8 (3.5-5.0) g/dL Serum Alcohol <10 mg/dL Disposition Clinical Impression: Syncope, Seizure, Head injury, Facial laceration, Alcohol abuse, Dehydration, Hypomagnesemia, Hypokalemia, Hypophosphatemia, Alcohol withdrawal, Fall, Facial contusion, Abrasion, Transaminitis, Hypertension Disposition: ADMITTED IP TO THIS HOSP Condition: Fair
[2021-02-18] MEDS: amLODIPine 5 MG TAB PO SCH (20:11)
[2021-02-18] MEDS: levETIRAcetam 500 MG TAB PO SCH (22:19)
[2021-02-18] MEDS: BACITRACIN ZINC 500 UNIT/GM OINT 28.4 GM TUBE TOPICAL SCH (22:21)
[2021-02-18] MEDS: POTAS-SOD-PHOS 278-164-250 MG 1 EACH PACKET PO SCH (22:21)
--- NOTE | 2021-02-19 00:01 | P.HPIM ---
History of Present Illness H&P Date: 02/18/21 Patient is a 35-year-old male with a PMH of EtOH abuse who presented to the emergency room after an episode of seizure. The patient notes that he has been drinking 2 pints of whiskey daily for the past 2 decades and that he had been trying to cut down and abruptly stopped taking 2 days ago. He notes that earlier today he was on the phone talking with a friend walking outside when he suddenly lost consciousness. Upon waking up, he had significant left eyebrow pain and headache. This was an unwitnessed episode. The patient came to the hospital thinking that he likely had a seizure. While in the emergency room, the patient was walking to the restroom when he suddenly lost consciousness, h itting his head on the rail and subsequently having a tonic-clonic seizure which lasted roughly a minute, as witnessed by the emergency room staff. The patient has a history of alcohol withdrawal seizures and was here for similar complaints 2 weeks ago. The patient at the time of interview reported 6 out of 10 diffuse headache along with left eye swelling. He also reported feeling shaky and tir ed. Noted that although it is difficult for him to open his left eye, that he is able to see appropriately from that eye. In the emergency room he underwent an extensive evaluation with EKG showing sinus tachycardia at 1 10 bpm with a brain and head and cervical spine CT showing left-sided periorbital soft tissue swelling but otherwise unremarkable. Laboratory evaluation was remarkable for WBC count 10.8, potassium 3.1, CO2 17, magnesium 1.9, phosphorus 1.8, AST 234, ALT 58, and alk phos 181. Review of Systems Pertinent positives and negatives as discussed in HPI, a complete review of systems was performed and all other systems are negative. Past Medical History Past Medical History: Seizure Disorder Additional Past Medical History / Comment(s): PNEUMOTHORAX History of Any Multi-Drug Resistant Organisms: None Reported Past Surgical History: No Surgical Hx Reported Additional Past Surgical History / Comment(s): LEFT ARM SURGERY, Past Anesthesia/Blood Transfusion Reactions: No Reported Reaction Past Psychological History: Anxiety, Depression Smoking Status: Current every day smoker Past Alcohol Use History: Daily Past Drug Use History: Marijuana - Past Family History Father Family Medical History: Unable to Obtain Mother Family Medical History: Coronary Artery Disease (CAD) Medications and Allergies Home Medications Medication Instructions Recorded Confirmed Type No Known Home Medications 02/05/21 02/18/21 History Allergies Allergy/AdvReac Type Severity Reaction Status Date / Time No Known Allergies Allergy Verified 02/18/21 16:49 Physical Exam Vitals: Vital Signs Temp Pulse Resp BP Pulse Ox 02/18/21 21:31 94 16 187/115 96 02/18/21 19:52 108 H 16 169/116 97 02/18/21 19:03 104 H 16 173/108 96 02/18/21 18:00 96 16 185/116 96 02/18/21 16:15 94 16 169/112 96 02/18/21 15:00 98 F 107 H 18 172/118 98 Intake and Output 02/18/21 02/18/21 02/19/21 14:59 22:59 06:59 Other: Weight 77.519 kg General: disheveled male, appears shaky, appears older than stated age, normal weight Derm: Left periorbital swelling and ecchymosis w/ sutures, warm, dry Head: Left periorbital swelling and ecchymosis, normocephalic, symmetric Eyes: EOMI, anicteric sclera, pupils equal round reactive to light ENT: Nose and ears atraumatic, no thrush, no pharyngeal erythema Neck: No thyromegaly, no cervical lymphadenopathy, trachea midline, supple Mouth: no lip lesion, mucus membranes dry Cardiovascular: S1S2 reg, no murmur, positive posterior tibial pulse bilateral, no edema, capillary refill less than 2 seconds Lungs: CTA bilateral, no rhonchi, no rales , no accessory muscle use Abdominal: soft, nontender to palpation, no guarding, no appreciable organomegaly, normal bowel sounds Ext: no gross muscle atrophy, muscle strength 4 out of 5 in all 4 extremities grossly, no contractures Neuro: CN II-XI grossly intact, light touch intact all 4 extremities, outstretched hand tremor Psych: Alert, oriented, appropriate affect Results CBC & Chem 7: 02/18/21 15:14 02/18/21 15:14 Labs: Abnormal Lab Results - Last 24 Hours (Table) 02/18/21 02/18/21 02/18/21 Range/Units 15:14 15:14 15:14 WBC 10.8 H (3.8-10.6) k/uL RBC 3.97 L (4.30-5.90) m/uL MCV 102.2 H (80.0-100.0) fL MCH 35.7 H (25.0-35.0) pg Neutrophils # 9.1 H (1.3-7.7) k/uL PT 12.2 H (9.0-12.0) sec INR 1.2 H (<1.2) APTT 20.1 L (22.0-30.0) sec Sodium 135 L (137-145) mmol/L Potassium 3.1 L (3.5-5.1) mmol/L Carbon Dioxide 17 L (22-30) mmol/L BUN 6 L (9-20) mg/dL Glucose 182 H (74-99) mg/dL Phosphorus 1.8 L (2.5-4.5) mg/dL Magnesium 0.9 L* (1.6-2.3) mg/dL Total Bilirubin 2.8 H (0.2-1.3) mg/dL AST 234 H (17-59) U/L ALT 58 H (4-49) U/L Alkaline Phosphatase 181 H (38-126) U/L Assessment and Plan Plan: Tonic-clonic seizure, suspected secondary to alcohol withdrawal with severe hypomagnesemia -CIWA protocol -Thiamine, MV -Replace magnesium and monitor -Fall, seizure, aspiration precautions -Neuro consult -Neuro checks -Advised on the importance of EtOH cessation -C/w Keppra for now Hypokalemia, secondary to EtOH abuse -Replace and monitor L facial trauma requiring stiches and significant periorbital swelling -Surgery consult DVT prophylaxis -Lovenox The patient is admitted with an anticipated greater than 2 midnight stay for evaluation of seizure CODE STATUS: Full Code Discussed with: Patient Anticipated discharge date: 2-[address]: Home A total of 35 minutes was spent on the care of this complex patient more than 50% of the time was spent in counseling and care coordination.
[2021-02-19] MEDS ORDERED: THIAMINE 100 MG TAB PO SCH (07:30)
[2021-02-19] MEDS ORDERED: PANTOPRAZOLE 40 MG TABLET PO SCH (07:30)
[2021-02-19 08:39] LABS: Basophils % (A) 1 %; Eosinophils % (A) 0 %; HCT 36.7 % (39.0-53.0); Lymphocytes # (A) 0.8 k/uL (1.0-4.8); Lymphocytes % (A) 11 %; MCH 36.1 pg (25.0-35.0); MCHC 35.6 g/dL (31.0-37.0); MCV 101.4 fL (80.0-100.0); Macrocytosis Slight; Mean Platelet Volume 8.2; Monocytes # (A) 0.3 k/uL (0-1.0); Monocytes % (A) 5 %; Neutrophils # (A) 6.1 k/uL (1.3-7.7); Neutrophils % (A) 82 %; Platelet Count 145 k/uL (150-450); RBC 3.62 m/uL (4.30-5.90); RDW 14.5 % (11.5-15.5); WBC 7.4 k/uL (3.8-10.6)
[2021-02-19] MEDS ORDERED: ENOXAPARIN 40 MG/0.4 ML SYRINGE SQ SCH (09:00)
[2021-02-19] MEDS ORDERED: MAGNESIUM OXIDE 400 MG TAB PO SCH (09:00)
[2021-02-19] MEDS: amLODIPine 5 MG TAB PO SCH (09:10)
[2021-02-19] MEDS: levETIRAcetam 500 MG TAB PO SCH (09:10)
[2021-02-19 09:13] VITALS: RESP 18
--- NOTE | 2021-02-19 10:03 | P.CNNES ---
History of Present Illness Consult date: 02/19/21 Requesting physician: All Menjivar Reason for Consult: recurrent seizure History of Present Illness: This is a 35-year-old gentleman with medical history of chronic alcohol use, alcohol withdrawal seizures and tobacco use who presented to the emergency department on 02/18/2021 after having episode of unconsciousness. Some of the history was obtained from medical records. She stated that he drinks about 2 pints of alcohol daily and he has not been drinking for the last week since he ran out of money. So yesterday he said he went to a libertarian store and had a pint of alcohol he bought then does not remember what happened. He found unresponsive by his friend. Patient apparently had a fall and had laceration un derneath his left eyebrow. And in the ED was complaining of mild the headache. Patient stated that he drinks alcohol 4 years and smokes about half a pack a day. He denies of any seizures as a childhood. He stated that he does not have a diagnosis of seizures on its own and most of his seizures were alcohol withdrawal. Currently he does not have any headaches. Denies any nausea any vomiting. Denies any focal weakness. He cannot tell me about his history. Of note the patient had an EEG in our facility on 07/16/2020 and the routine EEG was reported as normal Workup in the hospital consisted of: Blood pressure of 172/118, heart rate of 107, temperature of 98 Fahrenheit, respiratory of 18, pulse ox of 90% at room air. CT of the head is reported as no acute intracranial hemorrhage or midline shift is seen. No significant change from prior. CT of the head and the neck was done and was reported as negative CT scan of the brain. Left-sided. At. Orbital soft tissue swelling. Negative CT scan of the cervical spine. Brain unchanged compared to examiner earlier today. CT of the face is reported as left sided facial soft tissue swelling lateral and anterior to the orbit and maxilla and zygoma. No fracture. Right maxillary sinusitis. His MCV was 102.2 and HC is 35.7. Sodium is 135, potassium 3.1 which are mildly low. The glucose level on presentation is 182 and that the serum, Phosphorus is 1.8, magnesium is 0.9 AST of 234 and the ALT 58 which are elevated. The calcium was 9.4 which is normal. Serum alcohol level is less than 10 The influenza A/B PCR are nondetected. The SARS Covid to PCR is nondetected Review of Systems Review of system: The 12 point system was reviewed and apparent positive and negative per HPI. Past Medical History Past Medical History: Seizure Disorder Additional Past Medical History / Comment(s): PNEUMOTHORAX History of Any Multi-Drug Resistant Organisms: None Reported Past Surgical History: No Surgical Hx Reported Additional Past Surgical History / Comment(s): LEFT ARM SURGERY, Past Anesthesia/Blood Transfusion Reactions: No Reported Reaction Past Psychological History: Anxiety, Depression Smoking Status: Current every day smoker Past Alcohol Use History: Daily Past Drug Use History: Marijuana - Past Family History Father Family Medical History: Unable to Obtain Mother Family Medical History: Coronary Artery Disease (CAD) Medications and Allergies Home Medications Medication Instructions Recorded Confirmed Type No Known Home Medications 02/05/21 02/18/21 History Allergies Allergy/AdvReac Type Severity Reaction Status Date / Time No Known Allergies Allergy Verified 02/18/21 16:49 Physical Examination - Vital Signs Vital Signs: Vital Signs Temp Pulse Resp BP Pulse Ox 02/19/21 06:36 97.9 F 95 16 164/105 100 02/19/21 03:37 98.1 F 101 H 18 154/96 97 02/19/21 00:00 103 H 16 166/106 96 02/18/21 21:31 94 16 187/115 96 02/18/21 19:52 108 H 16 169/116 97 02/18/21 19:03 104 H 16 173/108 96 02/18/21 18:00 96 16 185/116 96 02/18/21 16:15 94 16 169/112 96 02/18/21 15:00 98 F 107 H 18 172/118 98 Intake and Output 02/18/21 02/19/21 02/19/21 22:59 06:59 14:59 Other: Weight 77.519 kg GENERAL: The patient is lying in bed and is not in acute distress. HENT: Has echymosis over the left eye with stiches over the left eyebrow. CHEST: The heart rate is regular rate rhythm. No murmurs to auscultation. LUNG: Clear to auscultation bilaterally no wheezing noted throughout. Not labored breathing. ABDOMEN/GI: Bowel sounds present in all 4 quadrants. No tenderness to palpation throughout. NEUROLOGICAL: Higher mental function: The patient is awake, alert, oriented to self. He stated he was in the hospital but does not know the name. He stated the year was 2006 and the month was February, place and time. Patient is following commands. No aphasia and no neglect. Cranial nerves: Could not assess the left eye since there was swelling over entire left eye lid and was resisted on trying to open his eyelid over the left. The pupil over the right is round and reactive to light. Visual swain are full to confrontation over the right eye but could not assess left. eye. Extraocular movement is intact no nystagmus is noted over right but could not assess left.. Facial sensation is normal to touch throughout. The facial strength is normal throughout. Hearing is normal bilaterally to hand rub. Tongue is midline and moved [id number] without any difficulty. No tongue bite is seen. No dysarthria is noted. Shoulder shrug is normal bilaterally. Motor: Gait is deferred. The strength is 5 over 5 throughout. Normal tone and bulk. Cerebellum: Normal finger to nose heel to chin bilaterally. Sensation: Sensation is normal to touch throughout. Reflexes (right/left): Biceps, brachioradialis and patellar are 3+ bilaterally. Otherwise 2+ throughout. Plantars are downgoing bilaterally. Results - Laboratory Findings CBC and BMP: 02/19/21 07:47 02/18/21 15:14 Abnormal Lab Findings: Abnormal Labs 02/18/21 02/18/21 02/18/21 15:14 15:14 15:14 WBC 10.8 H RBC 3.97 L MCV 102.2 H MCH 35.7 H Neutrophils # 9.1 H PT 12.2 H INR 1.2 H APTT 20.1 L Sodium 135 L Potassium 3.1 L Carbon Dioxide 17 L BUN 6 L Glucose 182 H Phosphorus 1.8 L Magnesium 0.9 L* Total Bilirubin 2.8 H AST 234 H ALT 58 H Alkaline Phosphatase 181 H Assessment and Plan Assessment: This is a 35-year-old gentleman with history of chronic alcohol use, alcohol withdrawal seizures who presented to the emergency department because of episode of unresponsiveness. He said that the he drinks about 2 pints a day but has a not been drinking in the last 1 week since ran out of money. Episode of unconsciousness is due to alcohol withdrawal seizures with electrolyte imbalance due to chronic alcohol use. Presenting with alcohol level <10 Electrolyte imbalance (hypomagnesemia, hypophosphatemia) due to chronic alcohol use Elevated Liver function test AST > ALT (234/58) due to alcohol use History of alcohol withdrawal seizures Macrocytosis due to alcohol use Chronic alcohol use Tobacco use Plan: He was started on Keppra 500 mg 1 tablet twice a day by the ED team and was also given a loading dose of Keppra 1000 mg once. From a neurological standpoint his seizure is due to alcohol withdrawal and unlikely epileptogenic/seizure in nature. Recommend the patient to follow up with a neurologist as an outpatient within 1-2 weeks. If The patient has no further alcohol use and no further seizure then from a neurological stand point he does not need to be placed on anti-epileptic drug but he needs to be assessed as outpatient. An EEG is not warranted at this time. Patient is on thiamine 100 mg twice a day and asked to be continued Patient is on CIWA protocol and will defer management to primary team. I ordered vitamin B12, serum folate level.--- Because of his seizures, patient cannot drive for 6 month per [place] MDV until seizure-free for 6 months, he's avoiding heights, avoid heavy machinery and avoid swimming unassisted and this was relayed to the patient. Patient need to follow-up with a neurologist within 1-2 weeks as an outpatient. The plan is discussed with the patient. Thank you for the consultation. Adrian Farias MD Neuro-Hospitalist Time with Patient: Greater than 30
[2021-02-19] MEDS: BACITRACIN ZINC 500 UNIT/GM OINT 28.4 GM TUBE TOPICAL SCH (10:17)
[2021-02-19] MEDS: POTAS-SOD-PHOS 278-164-250 MG 1 EACH PACKET PO SCH (10:18)
--- NOTE | 2021-02-19 12:49 | P.GSCN ---
History of Present Illness Consult date: 02/19/21 History of present illness: CHIEF COMPLAINT: Fall HISTORY OF PRESENT ILLNESS: This is a 35-year-old male with a known past medical history of alcohol abuse and alcohol withdrawal seizures. He presented to the emergency room after a possible seizure episode. Patient doesn't drink 2 pints of whiskey daily. He abruptly stopped about 2 days ago. Apparently he had been talking on the phone with a friend she was walking outside when suddenly he lost consciousness. Upon waking up he had pain on the left eyebrow and headache. He came into the hospital thinking that he had a seizure. While in the emergency room apparently he lost consciousness again with walking. Patient's CAT scan of the brain and C-spine were negative. He had a computed tomography scan of the face that did show left-sided facial soft tissue swelling lateral and anterior to the orbit and maxilla and zygoma. No fracture. Patient seen by neurology. Keppra has been started for seizure. Patient had sutures placed above the left eyebrow on by ER physician. Surgical consult placed in regards to trauma to the face. Patient denies any nausea or vomiting. He is tolerating diet this mor carmen. His headache is better. Denies any vision changes. He is ambulating. He denies any abdominal pain. PAST MEDICAL HISTORY: See list. PAST SURGICAL HISTORY: See list. MEDICATIONS: See list. ALLERGIES: See list. SOCIAL HISTORY: No illicit drug use. REVIEW OF SYSTEMS: CONSTITUTIONAL: Denies fever or chills. HEENT: Denies blurred vision, vision changes, or eye pain. Denies hemoptysis CARDIOVASCULAR: Denies chest pain or pressure. RESPIRATORY: No shortness of breath. GASTROINTESTINAL: See HPI for pertinent findings HEMATOLOGIC: Denies bleeding disorders. GENITOURINARY: Denies any blood in urine or increased urinary frequency. SKIN: Denies pruitis. Denies rash. PHYSICAL EXAM: VITAL SIGNS: Reviewed GENERAL: Well-developed in no acute distress. HEENT: Patient's left eye is swollen shut. He is able to open. Denies any visual disturbance. He has significant swelling on the left eye periorbital area and left maxillary area. There is abrasions as well. There is a laceration above the left eyebrow with sutures in place. No nasal drainage. ABDOMEN: Soft. Nondistended. Nontender NEUROLOGIC: Alert and oriented. Cranial nerves II through XII grossly intact. LABORATORY DATA: WBC 7.4 hemoglobin 13 sodium 135 potassium 3.1 creatinine 0.77 glucose 182 phosphorus 1.8 magnesium 0.9 Total bili 2.8 AST 234 ALT 58 alk phos 181 serum alcohol level less than 10. I nfluenza, RSV and Covid screening negative IMAGING: As stated above ASSESSMENT: 1. Left facial trauma due to fall and loss of consciousness from alcohol withdrawal seizure 2. Left eyebrow laceration. Patient had sutures placed by ER physician 3. Hypokalemia, hypomagnesemia and hyperphosphatemia PLAN: -Continue supportive care -No surgical intervention planned -Replace electrolytes -Agree with neuro consult Thank you for this consultation Physician Metal Cutter note has been reviewed by physician. Signing provider agrees with the documented findings, assessment, and plan of care. Past Medical History Past Medical History: Seizure Disorder Additional Past Medical History / Comment(s): PNEUMOTHORAX History of Any Multi-Drug Resistant Organisms: None Reported Past Surgical History: No Surgical Hx Reported Additional Past Surgical History / Comment(s): LEFT ARM SURGERY, Past Anesthesia/Blood Transfusion Reactions: No Reported Reaction Past Psychological History: Anxiety, Depression Smoking Status: Current every day smoker Past Alcohol Use History: Daily Past Drug Use History: Marijuana - Past Family History Father Family Medical History: Unable to Obtain Mother Family Medical History: Coronary Artery Disease (CAD) Medications and Allergies Home Medications Medication Instructions Recorded Confirmed Type Acetaminophen Tab [Tylenol] 650 mg PO Q6HR PRN tab 02/19/21 Rx Ibuprofen [Motrin] 400 mg PO Q6HR PRN tab 02/19/21 Rx Thiamine [Vitamin B-1] 100 mg PO BID-W/MEALS #60 tab 02/19/21 Rx amLODIPine [Norvasc] 5 mg PO DAILY #30 tab 02/19/21 Rx levETIRAcetam [Keppra] 500 mg PO BID #60 tab 02/19/21 Rx Allergies Allergy/AdvReac Type Severity Reaction Status Date / Time No Known Allergies Allergy Verified 02/18/21 16:49 Surgical - Exam Vital Signs Temp Pulse Resp BP Pulse Ox 98 F 107 H 18 172/118 98 02/18/21 15:00 02/18/21 15:00 02/18/21 15:00 02/18/21 15:00 02/18/21 15:00 Results - Labs 02/19/21 07:47 02/18/21 15:14 Abnormal Lab Results - Last 24 Hours (Table) 02/18/21 02/18/21 02/18/21 Range/Units 15:14 15:14 15:14 WBC 10.8 H (3.8-10.6) k/uL RBC 3.97 L (4.30-5.90) m/uL Hct (39.0-53.0) % MCV 102.2 H (80.0-100.0) fL MCH 35.7 H (25.0-35.0) pg Plt Count (150-450) k/uL Neutrophils # 9.1 H (1.3-7.7) k/uL Lymphocytes # (1.0-4.8) k/uL PT 12.2 H (9.0-12.0) sec INR 1.2 H (<1.2) APTT 20.1 L (22.0-30.0) sec Sodium 135 L (137-145) mmol/L Potassium 3.1 L (3.5-5.1) mmol/L Carbon Dioxide 17 L (22-30) mmol/L BUN 6 L (9-20) mg/dL Glucose 182 H (74-99) mg/dL Phosphorus 1.8 L (2.5-4.5) mg/dL Magnesium 0.9 L* (1.6-2.3) mg/dL Total Bilirubin 2.8 H (0.2-1.3) mg/dL AST 234 H (17-59) U/L ALT 58 H (4-49) U/L Alkaline Phosphatase 181 H (38-126) U/L 02/19/21 Range/Units 07:47 WBC (3.8-10.6) k/uL RBC 3.62 L (4.30-5.90) m/uL Hct 36.7 L (39.0-53.0) % MCV 101.4 H (80.0-100.0) fL MCH 36.1 H (25.0-35.0) pg Plt Count 145 L (150-450) k/uL Neutrophils # (1.3-7.7) k/uL Lymphocytes # 0.8 L (1.0-4.8) k/uL PT (9.0-12.0) sec INR (<1.2) APTT (22.0-30.0) sec Sodium (137-145) mmol/L Potassium (3.5-5.1) mmol/L Carbon Dioxide (22-30) mmol/L BUN (9-20) mg/dL Glucose (74-99) mg/dL Phosphorus (2.5-4.5) mg/dL Magnesium (1.6-2.3) mg/dL Total Bilirubin (0.2-1.3) mg/dL AST (17-59) U/L ALT (4-49) U/L Alkaline Phosphatase (38-126) U/L Diabetes panel 02/18/21 Range/Units 15:14 Sodium 135 L (137-145) mmol/L Potassium 3.1 L (3.5-5.1) mmol/L Chloride 102 (98-107) mmol/L Carbon Dioxide 17 L (22-30) mmol/L BUN 6 L (9-20) mg/dL Creatinine 0.77 (0.66-1.25) mg/dL Glucose 182 H (74-99) mg/dL Calcium 9.4 (8.4-10.2) mg/dL AST 234 H (17-59) U/L ALT 58 H (4-49) U/L Alkaline Phosphatase 181 H (38-126) U/L Total Protein 7.5 (6.3-8.2) g/dL Albumin 4.8 (3.5-5.0) g/dL Calcium panel 02/18/21 Range/Units 15:14 Calcium 9.4 (8.4-10.2) mg/dL Phosphorus 1.8 L (2.5-4.5) mg/dL Albumin 4.8 (3.5-5.0) g/dL Pituitary panel 02/18/21 Range/Units 15:14 Sodium 135 L (137-145) mmol/L Potassium 3.1 L (3.5-5.1) mmol/L Chloride 102 (98-107) mmol/L Carbon Dioxide 17 L (22-30) mmol/L BUN 6 L (9-20) mg/dL Creatinine 0.77 (0.66-1.25) mg/dL Glucose 182 H (74-99) mg/dL Calcium 9.4 (8.4-10.2) mg/dL Adrenal panel 02/18/21 Range/Units 15:14 Sodium 135 L (137-145) mmol/L Potassium 3.1 L (3.5-5.1) mmol/L Chloride 102 (98-107) mmol/L Carbon Dioxide 17 L (22-30) mmol/L BUN 6 L (9-20) mg/dL Creatinine 0.77 (0.66-1.25) mg/dL Glucose 182 H (74-99) mg/dL Calcium 9.4 (8.4-10.2) mg/dL Total Bilirubin 2.8 H (0.2-1.3) mg/dL AST 234 H (17-59) U/L ALT 58 H (4-49) U/L Alkaline Phosphatase 181 H (38-126) U/L Total Protein 7.5 (6.3-8.2) g/dL Albumin 4.8 (3.5-5.0) g/dL
[2021-02-19 13:13] VITALS: BP 147/95; PULSE 87; TEMP 98.5
--- NOTE | 2021-02-19 16:51 | P.DS ---
Providers Date of admission: 02/18/21 19:32 Expected date of discharge: 02/19/21 Attending physician: Sandra Tate MD Consults: 02/18/21 19:29 Consult Physician Urgent Consulting Provider: Adiran Farias Consult Reason/Comments: recurrent seizures Do you want consulting provider notified?: Yes 02/18/21 23:58 Consult Physician Routine Consulting Provider: Daniel Irving Consult Reason/Comments: L facial trauma Do you want consulting provider notified?: Yes Primary care physician: Stated None Hospital Course: Patient is a 35-year-old male with a PMH of EtOH abuse who presented to the emergency room after an episode of seizure. The patient notes that he has been drinking 2 pints of whiskey daily for the past 2 decades and that he had been trying to cut down and abruptly stopped taking 2 days ago. He notes that earlier today he was on the phone talking with a friend walking outside when he suddenly lost consciousness. Upon waking up, he had significant left eyebrow pain and headache. This was an unwitnessed episode. The patient came to the hospital thinking that he likely had a seizure. While in the emergency room, the patient was walking to the restroom when he suddenly lost consciousness, hitting his head on the rail and subsequently having a tonic-clonic seizure which lasted roughly a minute, as witnessed by the emergency room staff. The patient has a history of alcohol withdrawal seizures and was here for similar complaints 2 weeks ago. The patient at the time of interview reported 6 out of 10 diffuse headache along with left eye swelling. He also reported feeling shaky and tired. Noted that although it is difficult for him to open his left eye, that he is able to see appropriately from that eye. In the emergency room he underwent an extensive evaluation with EKG showing sinus tachycardia at 1 10 bpm with a brain and head and cervical spine CT showing left-sided periorbital soft tissue swelling but otherwise unremarkable. Laboratory evaluation was remarkable for WBC count 10.8, potassium 3.1, CO2 17, magnesium 1.9, phosphorus 1.8, AST 234, ALT 58, and alk phos 181. Tonic-clonic seizure, suspected secondary to alcohol withdrawal with severe hypomagnesemia -Patient was seen by neurology, who recommended ongoing medical therapy and ETOH cessation. I had a long conversation with the patient today regarding ETOH abuse and services such as rehab and AA in order to maintain sobriety. Patient was discharged home with no changes to his medications, but will refills sent to pharmacy. I also started thiamine pills and recommended them for next 30 days. D/C meds were: ibuprofen, tylenol, amlodipine, keppra, thiamine. Pt also seen by surgical service due to facial lac and orbital swelling, but no operative management required at this time. Assessment: Gen: awake, alert HEENT: good hearing acuity, moist mucous membranes, left sided periorbital swelling with bruising Resp: good air exchange, breathing comfortably with no accessory muscle use, clear to auscultation bilaterally without wheezes CVS: good distal perfusion x 4, regular rate and rhythm without murmurs GI: soft, NTTP, ND, appropriate bowel sounds : no SPT, no CVAT, arceo catheter not present MSK: no pitting edema, no clubbing Neuro: non-focal, moving all extremities Psych: cooperative, euthymic mood Patient Condition at Discharge: Good Plan - Discharge Summary New Discharge Prescriptions: New Ibuprofen [Motrin] 400 mg PO Q6HR PRN tab PRN Reason: Mild Pain Or Fever > 100.5 amLODIPine [Norvasc] 5 mg PO DAILY #30 tab Acetaminophen Tab [Tylenol] 650 mg PO Q6HR PRN tab PRN Reason: Mild Pain Or Fever > 100.5 levETIRAcetam [Keppra] 500 mg PO BID #60 tab Thiamine [Vitamin B-1] 100 mg PO BID-W/MEALS #60 tab Discharge Medication List Acetaminophen Tab [Tylenol] 650 mg PO Q6HR PRN tab 02/19/21 [Rx] Ibuprofen [Motrin] 400 mg PO Q6HR PRN tab 02/19/21 [Rx] Thiamine [Vitamin B-1] 100 mg PO BID-W/MEALS #60 tab 02/19/21 [Rx] amLODIPine [Norvasc] 5 mg PO DAILY #30 tab 02/19/21 [Rx] levETIRAcetam [Keppra] 500 mg PO BID #60 tab 02/19/21 [Rx] Follow up Appointment(s)/Referral(s): None,Stated [Primary Care Provider] - 1-2 days Patient Instructions/Handouts: Abuse of Alcohol (ED), Recurrent Seizures in Adults (ED) Discharge Disposition: HOME SELF-CARE
[2021-02-19 17:09] LABS: ALT 47 U/L (10-49); AST 107 U/L (14-35); African American GFR (CKD) 139.7 (60.0-200.0); Albumin/Globulin Ratio 2.15 (1.60-3.17); Alkaline Phosphatase 156 U/L (41-126); Blood Urea Nitrogen <5.0 mg/dL (9.0-27.0); Calcium 9.1 mg/dL (8.7-10.3); Carbon Dioxide 24.1 mmol/L (21.6-31.8); Chloride 102 mmol/L (96-109); Glucose 88 mg/dL (70-110); Magnesium 2.1 mg/dL (1.5-2.4); Non-African American GFR(CKD) 120.6 (60.0-200.0); Phosphorus 1.5 mg/dL (2.4-5.1); Sodium 138 mmol/L (135-145); Total Protein 6.3 g/dL (6.2-8.2)
== END 2021-02-19 12:01 | disposition home or self-care (01) | DRG 101 ==
LOC: EC 14:57 → 5NMEDONC 19:32
PROVIDERS: ADMIT Internal Medicine; ATTEND Internal Medicine
PROC: 0HQ1XZZ Repair Face Skin, External Approach (ICD-10-PCS; principal; 2021-02-18)
DX: G40.909 Epilepsy, unspecified, not intractable, without status epilepticus (principal); F10.239 Alcohol dependence with withdrawal, unspecified; D75.89 Other specified diseases of blood and blood-forming organs; E83.39 Other disorders of phosphorus metabolism; E83.42 Hypomagnesemia; E86.0 Dehydration; E87.6 Hypokalemia; Z20.822 Contact with and (suspected) exposure to COVID-19; F17.210 Nicotine dependence, cigarettes, uncomplicated; F32.9 Major depressive disorder, single episode, unspecified; F41.9 Anxiety disorder, unspecified; I10 Essential (primary) hypertension; J32.0 Chronic maxillary sinusitis; S01.112A Laceration without foreign body of left eyelid and periocular area, initial encounter; W19.XXXA Unspecified fall, initial encounter; Y93.01 Activity, walking, marching and hiking; R74.01 Elevation of levels of liver transaminase levels; R00.0 Tachycardia, unspecified; Z79.899 Other long term (current) drug therapy; Z82.49 Family history of ischemic heart disease and other diseases of the circulatory system; Z71.41 Alcohol abuse counseling and surveillance of alcoholic
CPT/HCPCS: 36415; 70450; 70486; 72125; 80053; 80320; 82607; 82746; 83735; 84100; 85025; 85610; 85730; 87636; 93005; 96361; 96365; 96366; 96372; 96375; 99285

== ENCOUNTER 2021-07-15 14:03 | Inpatient (IN) | payer OTHER ==
[2021-07-15 14:18] VITALS: RESP 16
[2021-07-15] MEDS ORDERED: THIAMINE 100 MG/ML 2 ML VIAL IM STA (14:58)
[2021-07-15] MEDS ORDERED: LORazepam 2 MG/ML INJ IV PRN ×3 (14:58)
--- NOTE | 2021-07-15 15:00 | ED ---
General Adult HPI - General Chief complaint: Seizure Stated complaint: Seizures Time Seen by Provider: 07/15/21 14:40 Source: EMS Mode of arrival: EMS Limitations: no limitations - History of Present Illness Initial comments: Dictation was produced using [employer] dictation software. please excuse any grammatical, word or spelling errors. Chief Complaint: 36-year-old male presents to emergency room for seizure. History of Present Illness: This is a 36-year-old male he reports that he takes medicines for seizure. Takes Keppra 500 mg twice a day. Patient drinks a fifth of whiskey on a daily basis. He was seen here in January for seizures instructed by neurology and oriented documentation allegedly has seizure disorder secondary to alcohol withdrawal. Patient completed rehab one month ago however after being dealt with rehab he went back to drinking on a daily basis. Patient was at the store when next thing he remembers he was in the ambulance. EMS was called patient was brought to ER. According to EMS patient allegedly had a witnessed seizure. A little shaky but denies any symptoms currently. His last alcohol intake was yesterday. The ROS documented in this emergency department record has been reviewed and confirmed by me. Those systems with pertinent positive or negative responses have been documented in the HPI. All other systems are other negative and/or noncontributory. PHYSICAL EXAM: General Impression: Alert and oriented x3, not in acute distress, tremulous HEENT: Normocephalic atraumatic, extra-ocular movements intact, pupils equal and reactive to light bilaterally, mucous membranes moist. Cardiovascular: Heart regular rate and rhythm Chest: Able to complete full sentences, no retractions, no tachypnea Abdomen: abdomen soft, non-tender, non-distended, no organomegaly Musculoskeletal: Pulses present and equal in all extremities, no peripheral edema Motor: no focal deficits noted Neurological: CN II-XII grossly intact, no focal motor or sensory deficits noted Skin: Intact with no visualized rashes Psych: Normal affect and mood ED course: 36-year-old male presents to emergency department after seizure. vital signs upon arrival are within acceptable limits. Patient is well-appearin g at the bedside. He does appear to show some signs of withdrawals. He has some tremulousness in his hands. Patient was admitted in January for alcohol withdrawal. At that time he also had a seizure. Laboratory evaluation obtained found to be within normal limits. Metabolic panel is unremarkable. Serum alcohol is negative. Clinical presentation consistent with alcohol withdrawal. Patient administered Ativan. He will be admitted to the hospital for treatment of alcohol withdrawal. Patient will be admitted to [facility]. - Related Data Previous Rx's Medication Instructions Recorded Acetaminophen Tab [Tylenol] 650 mg PO Q6HR PRN tab 02/19/21 Ibuprofen [Motrin] 400 mg PO Q6HR PRN tab 02/19/21 Thiamine [Vitamin B-1] 100 mg PO BID-W/MEALS #60 tab 02/19/21 amLODIPine [Norvasc] 5 mg PO DAILY #30 tab 02/19/21 levETIRAcetam [Keppra] 500 mg PO BID #60 tab 02/19/21 Allergies Allergy/AdvReac Type Severity Reaction Status Date / Time No Known Allergies Allergy Verified 02/18/21 16:49 Review of Systems ROS Statement: Those systems with pertinent positive or pertinent negative responses have been documented in the HPI. ROS Other: All systems not noted in ROS Statement are negative. Past Medical History Past Medical History: Seizure Disorder Additional Past Medical History / Comment(s): PNEUMOTHORAX History of Any Multi-Drug Resistant Organisms: None Reported Past Surgical History: No Surgical Hx Reported Additional Past Surgical History / Comment(s): LEFT ARM SURGERY, Past Anesthesia/Blood Transfusion Reactions: No Reported Reaction Past Psychological History: Anxiety, Depression Smoking Status: Current every day smoker Past Alcohol Use History: Daily Past Drug Use History: Marijuana - Past Family History Father Family Medical History: Unable to Obtain Mother Family Medical History: Coronary Artery Disease (CAD) General Exam Limitations: no limitations Course Vital Signs 07/15/21 14:09 Temperature 98.2 F Pulse Rate 81 Respiratory 16 Rate Blood Pressure 152/94 O2 Sat by Pulse 100 Oximetry Medical Decision Making - Lab Data Result diagrams: 07/15/21 15:09 07/15/21 15:09 Lab Results 07/15/21 07/15/21 Range/Units 15:09 15:09 WBC 5.4 (3.8-10.6) k/uL RBC 4.20 L (4.30-5.90) m/uL Hgb 14.5 (13.0-17.5) gm/dL Hct 43.4 (39.0-53.0) % MCV 103.1 H (80.0-100.0) fL MCH 34.4 (25.0-35.0) pg MCHC 33.4 (31.0-37.0) g/dL RDW 16.9 H (11.5-15.5) % Plt Count 128 L (150-450) k/uL MPV 8.3 Neutrophils % 82 % Lymphocytes % 10 % Monocytes % 6 % Eosinophils % 0 % Basophils % 0 % Neutrophils # 4.4 (1.3-7.7) k/uL Lymphocytes # 0.5 L (1.0-4.8) k/uL Monocytes # 0.3 (0-1.0) k/uL Eosinophils # 0.0 (0-0.7) k/uL Basophils # 0.0 (0-0.2) k/uL Anisocytosis Slight Macrocytosis Moderate Sodium 136 L (137-145) mmol/L Potassium 4.9 (3.5-5.1) mmol/L Chloride 103 (98-107) mmol/L Carbon Dioxide 24 (22-30) mmol/L Anion Gap 9 mmol/L BUN 5 L (9-20) mg/dL Creatinine 0.71 (0.66-1.25) mg/dL Est GFR (CKD-EPI)AfAm >90 (>60 ml/min/1.73 sqM) Est GFR (CKD-EPI)NonAf >90 (>60 ml/min/1.73 sqM) Glucose 138 H (74-99) mg/dL Calcium 9.5 (8.4-10.2) mg/dL Total Bilirubin 1.9 H (0.2-1.3) mg/dL AST 56 (17-59) U/L ALT 19 (4-49) U/L Alkaline Phosphatase 100 (38-126) U/L Total Protein 7.6 (6.3-8.2) g/dL Albumin 4.6 (3.5-5.0) g/dL Serum Alcohol <10 mg/dL Disposition Clinical Impression: Seizure Disposition: ADMITTED IP TO THIS [facility] Condition: Fair Referrals: None,Stated [Primary Care Provider] - 1-2 days
[2021-07-15 15:25] LABS: Anisocytosis Slight; Basophils % (A) 0 %; Eosinophils % (A) 0 %; HCT 43.4 % (39.0-53.0); HGB 14.5 gm/dL (13.0-17.5); Lymphocytes # (A) 0.5 k/uL (1.0-4.8); Lymphocytes % (A) 10 %; MCH 34.4 pg (25.0-35.0); MCHC 33.4 g/dL (31.0-37.0); MCV 103.1 fL (80.0-100.0); Macrocytosis Moderate; Mean Platelet Volume 8.3; Monocytes # (A) 0.3 k/uL (0-1.0); Monocytes % (A) 6 %; Neutrophils # (A) 4.4 k/uL (1.3-7.7); Neutrophils % (A) 82 %; Platelet Count 128 k/uL (150-450); RDW 16.9 % (11.5-15.5); WBC 5.4 k/uL (3.8-10.6)
[2021-07-15 15:40] LABS: ALT 19 U/L (4-49); AST 56 U/L (17-59); African American GFR (CKD) >90 (>60 ml/min/1.73 sqM); Albumin 4.6 g/dL (3.5-5.0); Alcohol <10 mg/dL; Alkaline Phosphatase 100 U/L (38-126); Anion Gap 9 mmol/L; Blood Urea Nitrogen 5 mg/dL (9-20); Calcium 9.5 mg/dL (8.4-10.2); Carbon Dioxide 24 mmol/L (22-30); Chloride 103 mmol/L (98-107); Glucose 138 mg/dL (74-99); Non-African American GFR(CKD) >90 (>60 ml/min/1.73 sqM); Sodium 136 mmol/L (137-145); Total Bilirubin 1.9 mg/dL (0.2-1.3); Total Protein 7.6 g/dL (6.3-8.2)
[2021-07-15 15:42] LABS: Potassium 4.9 mmol/L (3.5-5.1)
[2021-07-15] MEDS ORDERED: NALOXONE 0.4 MG/ML 1 ML VIAL IV PRN (15:46)
[2021-07-15] MEDS ORDERED: SODIUM CHLORIDE 0.9% 1,000 ML IV SCH (16:00)
[2021-07-15] MEDS ORDERED: ONDANSETRON 4 MG/2 ML VIAL IVP PRN (16:47)
[2021-07-15] MEDS ORDERED: KETOROLAC 15 MG/ML 1 ML VIAL IVP PRN (16:47)
[2021-07-15] MEDS ORDERED: ACETAMINOPHEN TAB 325 MG TAB PO PRN (16:47)
[2021-07-15] MEDS ORDERED: levETIRAcetam IV 500 MG in SODIUM CHLORIDE 0.9% 100 ML IVPB STA (16:49)
--- NOTE | 2021-07-15 17:00 | P.HPIM ---
History of Present Illness H&P Date: 07/15/21 Chief Complaint: seizure Patient is a 36-year-old male with a history of alcoholism and prior seizures who presented to the ER via EMS secondary to being unresponsive at a liquor store. Per EMS possible seizure. No seizure in the ED and not requiring any medications for alcohol withdrawal. Labs demonstrated thrombocytopenia which is chronic for the patient, bilirubin 1.9 which is down from his prior bilirubin of 3. Patient is being admitted for possible seizure and alcohol withdrawal. Remebber walking into the store to return bottles and then remembers waking up in the back of the ambulance. Has a hx of 2 seizure in the past. Missed his morning Keppra dose. Not light headed, dizzy, SOB, Chest pain.Now having generalized soreness everywhere. No nausea, no RICHARDSON, + tired. In the Ambulance felt lost and had a hard time thinking, No loss of bowel of bladder control. + bite right side of tongue. ETOH use on and off, Last ETOH yesterday. Just got out of rehab. He feels that this has to do with ETOH w/d. + THC use. Reports that he has not been drinking consistent since getting out of rehab 3 weks ago. Had one beer the night before yesterday. Pertinent positives and negatives as discussed in HPI, a complete review of systems was performed and all other systems are negative. General: non toxic, no distress, appears at stated age Derm: warm, dry Head: atraumatic, normocephalic, symmetric Eyes: EOMI, no lid lag, anicteric sclera, pupils equal round reactive to light ENT: Nose and ears atraumatic, no thrush, no pharyngeal erythema Neck: No thyromegaly, no cervical lymphadenopathy, trachea midline, supple Mouth: no lip lesion, mucus membranes moist, + tongue biting Cardiovascular: S1S2 reg, no murmur, positive posterior tibial pulse bilateral, no edema, capillary refill less than 2 seconds Lungs: clear to ascultation bilateral, no ronchi, no rales, no wheeze, no accessory muscle use Abdominal: soft, nontender to palpation, no guarding, no appreciable organomegaly, normal bowel sounds Ext: no gross muscle atrophy, muscle strength muscle strength 5 out of 5 in all 4 extremities, no contractures Neuro: CN II-XI grossly intact, light touch intact all 4 extremities, finger to nose within normal limits, Psych: Alert, oriented, appropriate affect Possible sieuzre Hx of ETOH abuse - missed AM keppra, IV X 1 then restart oral Keppra - Seizure precaution - Neuro consult Thrombocytopenia - chronic and at baseline - follow CBC Elevated bilirubin - improved from prior - no indication for further testing Tobacco abuse - cessation - refused nicotine patch The patient is placed in observation with an anticipated less than 2 midnight stay for evaluation of Break through seizure . Surrogate decision-maker: Mother CODE STATUS: Full DVT prophylaxis: SCDs Discussed with: patient, ED physician Anticipated discharge date: in AM Anticipated discharge place: home A total of 35 minutes was spent on the care of this complex patient more than 50% of the time was spent in counseling and care coordination. Past Medical History Past Medical History: Seizure Disorder Additional Past Medical History / Comment(s): PNEUMOTHORAX History of Any Multi-Drug Resistant Organisms: None Reported Past Surgical History: No Surgical Hx Reported Additional Past Surgical History / Comment(s): LEFT ARM SURGERY, Past Anesthesia/Blood Transfusion Reactions: No Reported Reaction Past Psychological History: Anxiety, Depression Smoking Status: Current every day smoker Past Alcohol Use History: Daily Past Drug Use History: Marijuana - Past Family History Father Family Medical History: Unable to Obtain Mother Family Medical History: Coronary Artery Disease (CAD) Medications and Allergies Home Medications Medication Instructions Recorded Confirmed Type Thiamine [Vitamin B-1] 100 mg PO BID-W/MEALS #60 tab 02/19/21 07/15/21 Rx amLODIPine [Norvasc] 5 mg PO DAILY #30 tab 02/19/21 07/15/21 Rx levETIRAcetam [Keppra] 500 mg PO BID #60 tab 02/19/21 07/15/21 Rx Multivitamins, Thera [Multivitamin 1 tab PO DAILY 07/15/21 07/15/21 History (formulary)] Allergies Allergy/AdvReac Type Severity Reaction Status Date / Time No Known Allergies Allergy Verified 07/15/21 16:22 Physical Exam Osteopathic Statement: *. No significant issues noted on an osteopathic str uctural exam other than those noted in the History and Physical/Consult. Vitals: Vital Signs Temp Pulse Resp BP Pulse Ox 07/15/21 14:09 98.2 F 81 16 152/94 100 Intake and Output 07/15/21 07/15/21 07/15/21 06:59 14:59 22:59 Other: Weight 81.647 kg Results CBC & Chem 7: 07/15/21 15:09 07/15/21 15:09 Labs: Abnormal Lab Results - Last 24 Hours (Table) 07/15/21 07/15/21 Range/Units 15:09 15:09 RBC 4.20 L (4.30-5.90) m/uL MCV 103.1 H (80.0-100.0) fL RDW 16.9 H (11.5-15.5) % Plt Count 128 L (150-450) k/uL Lymphocytes # 0.5 L (1.0-4.8) k/uL Sodium 136 L (137-145) mmol/L BUN 5 L (9-20) mg/dL Glucose 138 H (74-99) mg/dL Total Bilirubin 1.9 H (0.2-1.3) mg/dL
[2021-07-15] MEDS: levETIRAcetam 500 MG TAB PO SCH (22:03)
[2021-07-16] MEDS ORDERED: THIAMINE 100 MG TAB PO SCH (07:30)
[2021-07-16] MEDS ORDERED: MULTIVITAMINS, THERA 1 EACH TAB PO SCH (09:00)
[2021-07-16] MEDS ORDERED: amLODIPine 5 MG TAB PO SCH (09:00)
[2021-07-16] MEDS: levETIRAcetam 500 MG TAB PO SCH (09:45)
[2021-07-16 14:38] VITALS: PULSE 75; TEMP 98
[2021-07-16 14:43] VITALS: BP 140/92
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
--- NOTE | 2021-07-16 15:44 | P.DS ---
Providers Date of admission: 07/15/21 15:46 Expected date of discharge: 07/16/21 Attending physician: Izabella Botello DO Consults: 07/15/21 15:47 Consult Physician Routine Consulting Provider: Leann Card Consult Reason/Comments: seizure Do you want consulting provider notified?: Yes Primary care physician: Stated None Hospital Course: This is a 36-year-old male with past medical history significant for seizure disorder, essential hypertension,, and alcohol abuse that presented to the emergency room with a seizure episode. Patient was evaluated in the ER and placed on observation. Apparently patient did not take his Keppra medication for the last week. He has been also been drinking alcohol intermittently. Patient was seen and evaluated by neurology. He was counseled extensively regarding medication compliance. No adjustments on his Keppra dose at this time. He was counseled about assistance from alcohol and informed about [place] law not drive a vehicle for six-month. He would be discharged home in a stable condition. For further details about this hospitalization please refer to the referring chart. Patient Condition at Discharge: Fair Plan - Discharge Summary New Discharge Prescriptions: Continue amLODIPine [Norvasc] 5 mg PO DAILY #30 tab levETIRAcetam [Keppra] 500 mg PO BID #60 tab Thiamine [Vitamin B-1] 100 mg PO BID-W/MEALS #60 tab Multivitamins, Thera [Multivitamin (formulary)] 1 tab PO DAILY Discharge Medication List Thiamine [Vitamin B-1] 100 mg PO BID-W/MEALS #60 tab 02/19/21 [Rx] amLODIPine [Norvasc] 5 mg PO DAILY #30 tab 02/19/21 [Rx] levETIRAcetam [Keppra] 500 mg PO BID #60 tab 02/19/21 [Rx] Multivitamins, Thera [Multivitamin (formulary)] 1 tab PO DAILY 07/15/21 [History] Follow up Appointment(s)/Referral(s): None,Stated [Primary Care Provider] - 1-2 days Discharge Disposition: HOME SELF-CARE
== END 2021-07-16 16:00 | disposition home or self-care (01) | DRG 897 ==
LOC: EC 14:03 → 5NMEDONC 15:46
PROVIDERS: ADMIT Internal Medicine; ATTEND Internal Medicine
DX: F10.239 Alcohol dependence with withdrawal, unspecified (principal); G40.509 Epileptic seizures related to external causes, not intractable, without status epilepticus; D69.6 Thrombocytopenia, unspecified; Z20.822 Contact with and (suspected) exposure to COVID-19; I10 Essential (primary) hypertension; E80.7 Disorder of bilirubin metabolism, unspecified; Y90.0 Blood alcohol level of less than 20 mg/100 ml; F17.200 Nicotine dependence, unspecified, uncomplicated; Z79.899 Other long term (current) drug therapy; Z87.09 Personal history of other diseases of the respiratory system; Z86.59 Personal history of other mental and behavioral disorders; W19.XXXA Unspecified fall, initial encounter; Z82.49 Family history of ischemic heart disease and other diseases of the circulatory system
CPT/HCPCS: 36415; 80053; 80320; 85025; 87635; 93005; 99285

== ENCOUNTER 2021-08-20 11:06 | Inpatient (IN) | payer OTHER ==
[2021-08-20] MEDS ORDERED: SODIUM CHLORIDE 0.9% 1,000 ML IV ONE ×2 (11:30→12:23)
[2021-08-20] MEDS ORDERED: LORazepam 2 MG/ML INJ IV STA (11:34)
--- NOTE | 2021-08-20 11:44 | ED ---
General Adult HPI - General Chief complaint: Altered Mental Status Stated complaint: fall, nausea, vomiting Time Seen by Provider: 08/20/21 11:26 Source: patient, EMS, RN notes reviewed, old records reviewed Mode of arrival: EMS Limitations: no limitations - History of Present Illness Initial comments: 28-year-old male history of seizure disorder and EtOH abuse presenting status post fall, confusion, possible seizure. Patient was transported by EMS. He states that he fallen in the bathroom last night. He does admit that he's been off of his antiseizure medication. He also admits to heavy alcohol consumption. He states his last drink was last night. He is having some nausea vomiting, no abdominal pain. Denies focal numbness or weakness. Denies significant headache. - Related Data Home Medications Medication Instructions Recorded Confirmed Multivitamins, Thera [Multivitamin 1 tab PO DAILY 07/15/21 08/20/21 (formulary)] Previous Rx's Medication Instructions Recorded Thiamine [Vitamin B-1] 100 mg PO BID-W/MEALS #60 tab 02/19/21 amLODIPine [Norvasc] 5 mg PO DAILY #30 tab 02/19/21 levETIRAcetam [Keppra] 500 mg PO BID #60 tab 02/19/21 Allergies Allergy/AdvReac Type Severity Reaction Status Date / Time No Known Allergies Allergy Verified 08/20/21 12:03 Review of Systems ROS Statement: Those systems with pertinent positive or pertinent negative responses have been documented in the HPI. ROS Other: All systems not noted in ROS Statement are negative. Past Medical History Past Medical History: Seizure Disorder Additional Past Medical History / Comment(s): PNEUMOTHORAX History of Any Multi-Drug Resistant Organisms: None Reported Past Surgical History: No Surgical Hx Reported Additional Past Surgical History / Comment(s): LEFT ARM SURGERY, Past Anesthesia/Blood Transfusion Reactions: No Reported Reaction Past Psychological History: Anxiety, Depression Smoking Status: Current every day smoker Past Alcohol Use History: Daily Past Drug Use History: Marijuana - Past Family History Father Family Medical History: Unable to Obtain Mother Family Medical History: Coronary Artery Disease (CAD) General Exam Limitations: no limitations General appearance: alert, anxious Head exam: Present: atraumatic, normocephalic Eye exam: Present: normal appearance, PERRL ENT exam: Present: mucous membranes dry Neck exam: Present: normal inspection. Absent: tenderness Respiratory exam: Present: normal lung sounds bilaterally, respiratory distress Cardiovascular Exam: Present: normal rhythm, tachycardia GI/Abdominal exam: Present: soft, tenderness (Mild generalized tenderness). Absent: distended Extremities exam: Present: normal inspection, normal capillary refill. Absent: pedal edema Neurological exam: Present: alert, oriented X3, CN II-XII intact. Absent: motor sensory deficit Psychiatric exam: Present: anxious, other (Tremulous) Skin exam: Present: warm, dry Course Vital Signs 08/20/21 08/20/21 08/20/21 11:18 13:30 14:24 Temperature 97.5 F L Pulse Rate 116 H 110 H 118 H Respiratory 18 22 18 Rate Blood Pressure 177/100 161/101 135/96 O2 Sat by Pulse 99 100 99 Oximetry EKG Findings - EKG Comments: EKG Findings:: EKG: Normal sinus rhythm, Peaked T waves always. Rate of 98, CA interval 146, QRS duration 98, QTC 469 Medical Decision Making - Medical Decision Making 36-year-old male who had presented with seizure, suspect alcohol withdrawal, patient is tachycardic and tachypneic upon arrival. Workup is initiated including head CT for both seizure and head trauma this is negative for intracranial hemorrhage or mass effect. Laboratory testing reveals a leukocytosis and a elevated hemoglobin likely from concentration. He has significant metabolic acidosis with a high anion gap. His initial CO2 is 7. He has a lactic acidosis as well. Suspect alcoholic ketoacidosis with lactic acidosis and dehydration. He's given initial normal saline boluses followed by D5 normal saline. Additionally he is treated for hyperkalemia of 6.0 with EKG changes. He's given insulin, dextrose, calcium gluconate and fluids. Repeat laboratory studies will be ordered including lactic acid and repeat metabolic panel. I discussed case with the admitting physician Dr. Davison will accept admission and with the supervisor travel trailer Dr. Harvey. - Lab Data Result diagrams: 08/20/21 11:45 08/20/21 14:11 Lab Results 08/20/21 08/20/21 08/20/21 Range/Units 11:45 11:45 11:45 WBC 19.3 H (3.8-10.6) k/uL RBC 5.08 (4.30-5.90) m/uL Hgb 17.7 H D (13.0-17.5) gm/dL Hct 54.0 H (39.0-53.0) % MCV 106.5 H (80.0-100.0) fL MCH 34.8 (25.0-35.0) pg MCHC 32.7 (31.0-37.0) g/dL RDW 16.0 H (11.5-15.5) % Plt Count 153 (150-450) k/uL MPV 9.0 Neutrophils % 94 % Lymphocytes % 2 % Monocytes % 4 % Eosinophils % 0 % Basophils % 0 % Neutrophils # 18.0 H (1.3-7.7) k/uL Lymphocytes # 0.4 L (1.0-4.8) k/uL Monocytes # 0.7 (0-1.0) k/uL Eosinophils # 0.0 (0-0.7) k/uL Basophils # 0.0 (0-0.2) k/uL Manual Slide Review Performed Anisocytosis Slight Macrocytosis Marked A PT 10.5 (9.0-12.0) sec INR 1.0 (<1.2) APTT 22.3 (22.0-30.0) sec VBG pH (7.31-7.41) VBG pCO2 (37-51) mmHg VBG HCO3 (24-28) mmol/L Sodium 141 (137-145) mmol/L Potassium 5.8 H (3.5-5.1) mmol/L Chloride 104 (98-107) mmol/L Carbon Dioxide 7 L* (22-30) mmol/L Anion Gap 30 mmol/L BUN 12 (9-20) mg/dL Creatinine 1.10 (0.66-1.25) mg/dL Est GFR (CKD-EPI)AfAm >90 (>60 ml/min/1.73 sqM) Est GFR (CKD-EPI)NonAf 85 (>60 ml/min/1.73 sqM) Glucose 194 H (74-99) mg/dL Lactic Ac Sepsis Rflx Plasma Lactic Acid Archie (0.7-2.0) mmol/L Calcium 10.1 (8.4-10.2) mg/dL Magnesium 1.7 (1.6-2.3) mg/dL Total Bilirubin 1.9 H (0.2-1.3) mg/dL AST 53 (17-59) U/L ALT 22 (4-49) U/L Alkaline Phosphatase 116 (38-126) U/L Total Protein 9.7 H (6.3-8.2) g/dL Albumin 6.0 H (3.5-5.0) g/dL Urine Color Urine Appearance (Clear) Urine pH (5.0-8.0) Ur Specific [place] (1.001-1.035) Urine Protein (Negative) Urine Glucose (UA) (Negative) Urine Ketones (Negative) Urine Blood (Negative) Urine Nitrite (Negative) Urine Bilirubin (Negative) Urine Urobilinogen (<2.0) mg/dL Ur Leukocyte Esterase (Negative) Urine RBC (0-5) /hpf Urine WBC (0-5) /hpf Hyaline Casts (0-2) /lpf Urine Mucus (None) /hpf Urine Opiates Screen (NotDetected) Ur Oxycodone Screen (NotDetected) Urine Methadone Screen (NotDetected) Ur Propoxyphene Screen (NotDetected) Ur Barbiturates Screen (NotDetected) U Tricyclic Antidepress (NotDetected) Ur Phencyclidine Scrn (NotDetected) Ur Amphetamines Screen (NotDetected) U Methamphetamines Scrn (NotDetected) U Benzodiazepines Scrn (NotDetected) Urine Cocaine Screen (NotDetected) U Marijuana (THC) Screen (NotDetected) Serum Alcohol <10 mg/dL Acetone, Qual (Negative) 08/20/21 08/20/21 08/20/21 Range/Units 11:45 12:16 12:40 WBC (3.8-10.6) k/uL RBC (4.30-5.90) m/uL Hgb (13.0-17.5) gm/dL Hct (39.0-53.0) % MCV (80.0-100.0) fL MCH (25.0-35.0) pg MCHC (31.0-37.0) g/dL RDW (11.5-15.5) % Plt Count (150-450) k/uL MPV Neutrophils % % Lymphocytes % % Monocytes % % Eosinophils % % Basophils % % Neutrophils # (1.3-7.7) k/uL Lymphocytes # (1.0-4.8) k/uL Monocytes # (0-1.0) k/uL Eosinophils # (0-0.7) k/uL Basophils # (0-0.2) k/uL Manual Slide Review Anisocytosis Macrocytosis PT (9.0-12.0) sec INR (<1.2) APTT (22.0-30.0) sec VBG pH (7.31-7.41) VBG pCO2 (37-51) mmHg VBG HCO3 (24-28) mmol/L Sodium (137-145) mmol/L Potassium (3.5-5.1) mmol/L Chloride (98-107) mmol/L Carbon Dioxide (22-30) mmol/L Anion Gap mmol/L BUN (9-20) mg/dL Creatinine (0.66-1.25) mg/dL Est GFR (CKD-EPI)AfAm (>60 ml/min/1.73 sqM) Est GFR (CKD-EPI)NonAf (>60 ml/min/1.73 sqM) Glucose (74-99) mg/dL Lactic Ac Sepsis Rflx Y Plasma Lactic Acid Archie 4.7 H* (0.7-2.0) mmol/L Calcium (8.4-10.2) mg/dL Magnesium (1.6-2.3) mg/dL Total Bilirubin (0.2-1.3) mg/dL AST (17-59) U/L ALT (4-49) U/L Alkaline Phosphatase (38-126) U/L Total Protein (6.3-8.2) g/dL Albumin (3.5-5.0) g/dL Urine Color Yellow Urine Appearance Clear (Clear) Urine pH 6.0 (5.0-8.0) Ur Specific [place] 1.020 (1.001-1.035) Urine Protein 2+ H (Negative) Urine Glucose (UA) Negative (Negative) Urine Ketones 4+ H (Negative) Urine Blood Large H (Negative) Urine Nitrite Negative (Negative) Urine Bilirubin Negative (Negative) Urine Urobilinogen 2.0 (<2.0) mg/dL Ur Leukocyte Esterase Negative (Negative) Urine RBC 1 (0-5) /hpf Urine WBC 5 (0-5) /hpf Hyaline Casts 13 H (0-2) /lpf Urine Mucus Rare H (None) /hpf Urine Opiates Screen Not Detected (NotDetected) Ur Oxycodone Screen Not Detected (NotDetected) Urine Methadone Screen Not Detected (NotDetected) Ur Propoxyphene Screen Not Detected (NotDetected) Ur Barbiturates Screen Not Detected (NotDetected) U Tricyclic Antidepress Not Detected (NotDetected) Ur Phencyclidine Scrn Not Detected (NotDetected) Ur Amphetamines Screen Not Detected (NotDetected) U Methamphetamines Scrn Not Detected (NotDetected) U Benzodiazepines Scrn Detected H (NotDetected) Urine Cocaine Screen Not Detected (NotDetected) U Marijuana (THC) Screen Detected H (NotDetected) Serum Alcohol mg/dL Acetone, Qual (Negative) 08/20/21 08/20/21 08/20/21 Range/Units 12:40 12:46 12:46 WBC (3.8-10.6) k/uL RBC (4.30-5.90) m/uL Hgb (13.0-17.5) gm/dL Hct (39.0-53.0) % MCV (80.0-100.0) fL MCH (25.0-35.0) pg MCHC (31.0-37.0) g/dL RDW (11.5-15.5) % Plt Count (150-450) k/uL MPV Neutrophils % % Lymphocytes % % Monocytes % % Eosinophils % % Basophils % % Neutrophils # (1.3-7.7) k/uL Lymphocytes # (1.0-4.8) k/uL Monocytes # (0-1.0) k/uL Eosinophils # (0-0.7) k/uL Basophils # (0-0.2) k/uL Manual Slide Review Anisocytosis Macrocytosis PT (9.0-12.0) sec INR (<1.2) APTT (22.0-30.0) sec VBG pH 7.16 L* (7.31-7.41) VBG pCO2 33 L (37-51) mmHg VBG HCO3 11 L (24-28) mmol/L Sodium 139 (137-145) mmol/L Potassium 6.5 H* (3.5-5.1) mmol/L Chloride 108 H (98-107) mmol/L Carbon Dioxide 7 L* (22-30) mmol/L Anion Gap 24 mmol/L BUN 12 (9-20) mg/dL Creatinine 1.02 (0.66-1.25) mg/dL Est GFR (CKD-EPI)AfAm >90 (>60 ml/min/1.73 sqM) Est GFR (CKD-EPI)NonAf >90 (>60 ml/min/1.73 sqM) Glucose 157 H (74-99) mg/dL Lactic Ac Sepsis Rflx Plasma Lactic Acid Archie (0.7-2.0) mmol/L Calcium 9.7 (8.4-10.2) mg/dL Magnesium (1.6-2.3) mg/dL Total Bilirubin (0.2-1.3) mg/dL AST (17-59) U/L ALT (4-49) U/L Alkaline Phosphatase (38-126) U/L Total Protein (6.3-8.2) g/dL Albumin (3.5-5.0) g/dL Urine Color Urine Appearance (Clear) Urine pH (5.0-8.0) Ur Specific [place] (1.001-1.035) Urine Protein (Negative) Urine Glucose (UA) (Negative) Urine Ketones (Negative) Urine Blood (Negative) Urine Nitrite (Negative) Urine Bilirubin (Negative) Urine Urobilinogen (<2.0) mg/dL Ur Leukocyte Esterase (Negative) Urine RBC (0-5) /hpf Urine WBC (0-5) /hpf Hyaline Casts (0-2) /lpf Urine Mucus (None) /hpf Urine Opiates Screen (NotDetected) Ur Oxycodone Screen (NotDetected) Urine Methadone Screen (NotDetected) Ur Propoxyphene Screen (NotDetected) Ur Barbiturates Screen (NotDetected) U Tricyclic Antidepress (NotDetected) Ur Phencyclidine Scrn (NotDetected) Ur Amphetamines Screen (NotDetected) U Methamphetamines Scrn (NotDetected) U Benzodiazepines Scrn (NotDetected) Urine Cocaine Screen (NotDetected) U Marijuana (THC) Screen (NotDetected) Serum Alcohol mg/dL Acetone, Qual Positive (Negative) 08/20/21 Range/Units 14:11 WBC (3.8-10.6) k/uL RBC (4.30-5.90) m/uL Hgb (13.0-17.5) gm/dL Hct (39.0-53.0) % MCV (80.0-100.0) fL MCH (25.0-35.0) pg MCHC (31.0-37.0) g/dL RDW (11.5-15.5) % Plt Count (150-450) k/uL MPV Neutrophils % % Lymphocytes % % Monocytes % % Eosinophils % % Basophils % % Neutrophils # (1.3-7.7) k/uL Lymphocytes # (1.0-4.8) k/uL Monocytes # (0-1.0) k/uL Eosinophils # (0-0.7) k/uL Basophils # (0-0.2) k/uL Manual Slide Review Anisocytosis Macrocytosis PT (9.0-12.0) sec INR (<1.2) APTT (22.0-30.0) sec VBG pH (7.31-7.41) VBG pCO2 (37-51) mmHg VBG HCO3 (24-28) mmol/L Sodium 139 (137-145) mmol/L Potassium 6.0 H (3.5-5.1) mmol/L Chloride 110 H (98-107) mmol/L Carbon Dioxide 11 L (22-30) mmol/L Anion Gap 18 mmol/L BUN 12 (9-20) mg/dL Creatinine 0.90 (0.66-1.25) mg/dL Est GFR (CKD-EPI)AfAm >90 (>60 ml/min/1.73 sqM) Est GFR (CKD-EPI)NonAf >90 (>60 ml/min/1.73 sqM) Glucose 119 H (74-99) mg/dL Lactic Ac Sepsis Rflx Plasma Lactic Acid Archie (0.7-2.0) mmol/L Calcium 9.0 (8.4-10.2) mg/dL Magnesium (1.6-2.3) mg/dL Total Bilirubin (0.2-1.3) mg/dL AST (17-59) U/L ALT (4-49) U/L Alkaline Phosphatase (38-126) U/L Total Protein (6.3-8.2) g/dL Albumin (3.5-5.0) g/dL Urine Color Urine Appearance (Clear) Urine pH (5.0-8.0) Ur Specific [place] (1.001-1.035) Urine Protein (Negative) Urine Glucose (UA) (Negative) Urine Ketones (Negative) Urine Blood (Negative) Urine Nitrite (Negative) Urine Bilirubin (Negative) Urine Urobilinogen (<2.0) mg/dL Ur Leukocyte Esterase (Negative) Urine RBC (0-5) /hpf Urine WBC (0-5) /hpf Hyaline Casts (0-2) /lpf Urine Mucus (None) /hpf Urine Opiates Screen (NotDetected) Ur Oxycodone Screen (NotDetected) Urine Methadone Screen (NotDetected) Ur Propoxyphene Screen (NotDetected) Ur Barbiturates Screen (NotDetected) U Tricyclic Antidepress (NotDetected) Ur Phencyclidine Scrn (NotDetected) Ur Amphetamines Screen (NotDetected) U Methamphetamines Scrn (NotDetected) U Benzodiazepines Scrn (NotDetected) Urine Cocaine Screen (NotDetected) U Marijuana (THC) Screen (NotDetected) Serum Alcohol mg/dL Acetone, Qual (Negative) Critical Care Time Critical Care Time: Yes Total Critical Care Time: 35 Disposition Clinical Impression: Alcohol withdrawal, Seizure, Alcohol withdrawal seizure, Alcoholic ketoacidosis, Lactic acidosis, Dehydration Disposition: ADMITTED IP TO THIS [facility] Condition: Serious Is patient prescribed a controlled substance at d/c from ED?: No Referrals: None,Stated [Primary Care Provider] - 1-2 days Decision to Admit Reason: Admit from EC Decision Date: 08/20/21 Decision Time: 15:02
[2021-08-20 12:17] LABS: ALT 22 U/L (4-49); African American GFR (CKD) >90 (>60 ml/min/1.73 sqM); Alcohol <10 mg/dL; Anion Gap 30 mmol/L; Blood Urea Nitrogen 12 mg/dL (9-20); Calcium 10.1 mg/dL (8.4-10.2); Chloride 104 mmol/L (98-107); Glucose 194 mg/dL (74-99); Non-African American GFR(CKD) 85 (>60 ml/min/1.73 sqM); Sodium 141 mmol/L (137-145); Total Bilirubin 1.9 mg/dL (0.2-1.3); Total Protein 9.7 g/dL (6.3-8.2)
[2021-08-20 12:22] LABS: AST 53 U/L (17-59); Alkaline Phosphatase 116 U/L (38-126); Carbon Dioxide 7 mmol/L (22-30); Magnesium 1.7 mg/dL (1.6-2.3); Potassium 5.8 mmol/L (3.5-5.1)
[2021-08-20 12:23] LABS: Partial Thromboplastin Time 22.3 sec (22.0-30.0); Prothrombin Time 10.5 sec (9.0-12.0)
[2021-08-20 12:27] LABS: Anisocytosis Slight; Basophils % (A) 0 %; Eosinophils % (A) 0 %; Lymphocytes # (A) 0.4 k/uL (1.0-4.8); Lymphocytes % (A) 2 %; MCH 34.8 pg (25.0-35.0); MCHC 32.7 g/dL (31.0-37.0); MCV 106.5 fL (80.0-100.0); Macrocytosis Marked; Monocytes # (A) 0.7 k/uL (0-1.0); Monocytes % (A) 4 %; Neutrophils % (A) 94 %; Platelet Count 153 k/uL (150-450); RBC 5.08 m/uL (4.30-5.90); WBC 19.3 k/uL (3.8-10.6)
[2021-08-20 12:33] LABS: HGB 17.7 gm/dL (13.0-17.5)
--- NOTE | 2021-08-20 12:37 | CT ---
EXAMINATION TYPE: CT brain cspine wo con DATE OF EXAM: 08/20/2021 COMPARISON: NONE HISTORY: Fall, history of Seizure with headache and neck pain. Left upper lip abrasion. CT DLP: 1412.9 mGycm. Automated Exposure Control for Dose Reduction was Utilized. TECHNIQUE: CT scan of the head and cervical spine are performed without contrast. FINDINGS: There is no acute intracranial hemorrhage or midline shift identified. Stable mild ventri cular and sulcal prominence. New extra-axial fluid adjacent to left cerebellar hemisphere curvilinear in shape but isointense to CSF consistent with subdural hygroma or hematoma is noted coronal image 5 1 for reference . The calvarium is intact. Cerumen in the deep left external auditory canal is redemo nstrated. The globes are intact and the visualized sinuses are clear. Cervical spine is visualized in its entirety from C1 through upper thoracic levels and demonstrates s table and straightened alignment without evidence of acute fracture or dislocation. Prevertebral sof t tissue appears within normal limits. The C1-C2 articulation is within normal limits on the coronal images. Vertebral body heights and disc space heights are maintained. Spinal canal is preserved. Thy roid gland appears within normal limits. Lung apices redemonstrate emphysematous change greater on th e right. IMPRESSION: 1. There is no acute fracture or dislocation evident in the cervical spine. 2. No acute intracranial hemorrhage or midline shift is seen.
[2021-08-20 13:00] LABS: VBG PH 7.16 (7.31-7.41)
[2021-08-20] MEDS ORDERED: THIAMINE 100 MG/ML 2 ML VIAL IM STA (13:16)
[2021-08-20 13:27] LABS: African American GFR (CKD) >90 (>60 ml/min/1.73 sqM); Anion Gap 24 mmol/L; Blood Urea Nitrogen 12 mg/dL (9-20); Calcium 9.7 mg/dL (8.4-10.2); Chloride 108 mmol/L (98-107); Glucose 157 mg/dL (74-99); Non-African American GFR(CKD) >90 (>60 ml/min/1.73 sqM); Sodium 139 mmol/L (137-145)
[2021-08-20 13:43] LABS: Carbon Dioxide 7 mmol/L (22-30)
[2021-08-20] MEDS ORDERED: ONDANSETRON 4 MG/2 ML VIAL IVP STA (13:43)
[2021-08-20 13:44] LABS: Potassium 6.5 mmol/L (3.5-5.1)
[2021-08-20] MEDS ORDERED: SODIUM CHLORIDE 0.9% 1,000 ML IV SCH (13:45)
[2021-08-20 14:31] LABS: African American GFR (CKD) >90 (>60 ml/min/1.73 sqM); Anion Gap 18 mmol/L; Blood Urea Nitrogen 12 mg/dL (9-20); Carbon Dioxide 11 mmol/L (22-30); Chloride 110 mmol/L (98-107); Glucose 119 mg/dL (74-99); Non-African American GFR(CKD) >90 (>60 ml/min/1.73 sqM); Sodium 139 mmol/L (137-145)
[2021-08-20 14:38] LABS: Appearance,Urine Clear (Clear); Bilirubin,Urine Negative (Negative); Blood,Urine Large (Negative); Color,Urine Yellow; Glucose,Urine (UA) Negative (Negative); Hyaline Casts,Urine 13 /lpf (0-2); Ketones,Urine 4+ (Negative); Leukocyte Esterase,Urine Negative (Negative); Mucus,Urine Rare /hpf; Nitrite,Urine Negative (Negative); Protein,Urine 2+ (Negative); RBC,Urine 1 /hpf (0-5); WBC,Urine 5 /hpf (0-5)
[2021-08-20] MEDS: LORazepam 2 MG/ML INJ IV PRN ×4 (14:40→20:59)
[2021-08-20 14:42] LABS: Amphetamine Screen,Urine Not Detected (NotDetected); Barbiturate Screen,Urine Not Detected (NotDetected); Benzodiazepines Screen,Urine Detected (NotDetected); Cocaine Screen,Urine Not Detected (NotDetected); Methadone Screen, Urine Not Detected (NotDetected); Opiate Screen,Urine Not Detected (NotDetected); Oxycodone Screen, Urine Not Detected (NotDetected); Phencyclidine Screen,Urine Not Detected (NotDetected); Tricyclic Antidepressant,Urine Not Detected (NotDetected); Urn Cannabinoid Scrn Detected (NotDetected)
[2021-08-20] MEDS ORDERED: DEXTROSE 50% SYRINGE 50 ML IVP ONE (14:45)
[2021-08-20] MEDS ORDERED: INSULIN REGULAR 100 UNIT/ML VIAL (IV) IV ONE (14:45)
[2021-08-20] MEDS ORDERED: NALOXONE 0.4 MG/ML 1 ML VIAL IV PRN (14:57)
[2021-08-20] MEDS ORDERED: CALCIUM GLUCONATE 1 GM in SODIUM CHLORIDE 0.9% 100 ML IVPB ONE (15:00)
[2021-08-20] MEDS ORDERED: ACETAMINOPHEN TAB 325 MG TAB PO PRN (15:30)
--- NOTE | 2021-08-20 15:37 | P.HPIM ---
History of Present Illness H&P Date: 08/20/21 This is a 36-year-old male with past medical history significant for alcohol abuse and seizure disorder that presented to the emergency room this morning after he passed out in the bathroom last night. Patient said that he was on a binge drink last night and had 1 pint of whiskey and 2 beers and subsequently went to the bathroom around 9 PM to urinate and next thing He remembers waking up this morning laying on the floor in the bathroom. Patient was evaluated in the ER and was found to have significant electrolyte derangement and also vomited once in the ER. Patient was treated medically and will be admitted to the hospital for further management. He is awake and alert right now. He inf ormed me that he sometimes feels depressed and when his dog he has some suicidal ideation. He currently denies any suicidal ideation. He recognized the danger of his lifestyle and his alcohol abuse and understand how important it is to quit. He was at [place] 3 times a day for and currently he is on the relapse. He is known to be noncompliant with his seizure medications. Review of Systems Review of system: 14 points review of systems were obtained and were negative except to what were mentioned in the HPI. Past Medical History Past Medical History: Seizure Disorder Additional Past Medical History / Comment(s): PNEUMOTHORAX History of Any Multi-Drug Resistant Organisms: None Reported Past Surgical History: No Surgical Hx Reported Additional Past Surgical History / Comment(s): LEFT ARM SURGERY, Past Anesthesia/Blood Transfusion Reactions: No Reported Reaction Past Psychological History: Anxiety, Depression Smoking Status: Current every day smoker Past Alcohol Use History: Daily Past Drug Use History: Marijuana - Past Family History Father Family Medical History: Unable to Obtain Mother Family Medical History: Coronary Artery Disease (CAD) Medications and Allergies Home Medications Medication Instructions Recorded Confirmed Type Thiamine [Vitamin B-1] 100 mg PO BID-W/MEALS #60 tab 02/19/21 08/20/21 Rx amLODIPine [Norvasc] 5 mg PO DAILY #30 tab 02/19/21 08/20/21 Rx levETIRAcetam [Keppra] 500 mg PO BID #60 tab 02/19/21 08/20/21 Rx Multivitamins, Thera [Multivitamin 1 tab PO DAILY 07/15/21 08/20/21 History (formulary)] Allergies Allergy/AdvReac Type Severity Reaction Status Date / Time No Known Allergies Allergy Verified 08/20/21 12:03 Physical Exam Vitals: Vital Signs Temp Pulse Resp BP Pulse Ox 08/20/21 14:24 118 H 18 135/96 99 08/20/21 13:30 110 H 22 161/101 100 08/20/21 11:18 97.5 F L 116 H 18 177/100 99 Intake and Output 08/20/21 08/20/21 08/20/21 06:59 14:59 22:59 Other: Weight 81.647 kg General: The patient is awake and alert, in no distress Eye: there is normal conjunctiva bilaterally. Neck: The neck is supple, there is no JVD. Cardiovascular: Normal S1-S2, no S3-S4, no murmurs. Respiratory: Lungs clear to auscultation bilaterally Gastrointestinal: Abdomen is soft, nontender Musculoskeletal: There is no pedal edema. Neurological:. Speech is normal. Skin: Skin is warm and dry Results CBC & Chem 7: 08/20/21 11:45 08/20/21 14:11 Labs: Abnormal Lab Results - Last 24 Hours (Table) 08/20/21 08/20/21 08/20/21 Range/Units 11:45 11:45 11:45 WBC 19.3 H (3.8-10.6) k/uL Hgb 17.7 H D (13.0-17.5) gm/dL Hct 54.0 H (39.0-53.0) % MCV 106.5 H (80.0-100.0) fL RDW 16.0 H (11.5-15.5) % Neutrophils # 18.0 H (1.3-7.7) k/uL Lymphocytes # 0.4 L (1.0-4.8) k/uL Macrocytosis Marked A VBG pH (7.31-7.41) VBG pCO2 (37-51) mmHg VBG HCO3 (24-28) mmol/L Potassium 5.8 H (3.5-5.1) mmol/L Chloride (98-107) mmol/L Carbon Dioxide 7 L* (22-30) mmol/L Glucose 194 H (74-99) mg/dL Plasma Lactic Acid Archie 4.7 H* (0.7-2.0) mmol/L Total Bilirubin 1.9 H (0.2-1.3) mg/dL Total Protein 9.7 H (6.3-8.2) g/dL Albumin 6.0 H (3.5-5.0) g/dL Urine Protein (Negative) Urine Ketones (Negative) Urine Blood (Negative) Hyaline Casts (0-2) /lpf Urine Mucus (None) /hpf U Benzodiazepines Scrn (NotDetected) U Marijuana (THC) Screen (NotDetected) 08/20/21 08/20/21 08/20/21 Range/Units 12:40 12:40 12:46 WBC (3.8-10.6) k/uL Hgb (13.0-17.5) gm/dL Hct (39.0-53.0) % MCV (80.0-100.0) fL RDW (11.5-15.5) % Neutrophils # (1.3-7.7) k/uL Lymphocytes # (1.0-4.8) k/uL Macrocytosis VBG pH 7.16 L* (7.31-7.41) VBG pCO2 33 L (37-51) mmHg VBG HCO3 11 L (24-28) mmol/L Potassium 6.5 H* (3.5-5.1) mmol/L Chloride 108 H (98-107) mmol/L Carbon Dioxide 7 L* (22-30) mmol/L Glucose 157 H (74-99) mg/dL Plasma Lactic Acid Archie (0.7-2.0) mmol/L Total Bilirubin (0.2-1.3) mg/dL Total Protein (6.3-8.2) g/dL Albumin (3.5-5.0) g/dL Urine Protein 2+ H (Negative) Urine Ketones 4+ H (Negative) Urine Blood Large H (Negative) Hyaline Casts 13 H (0-2) /lpf Urine Mucus Rare H (None) /hpf U Benzodiazepines Scrn Detected H (NotDetected) U Marijuana (THC) Screen Detected H (NotDetected) 08/20/21 Range/Units 14:11 WBC (3.8-10.6) k/uL Hgb (13.0-17.5) gm/dL Hct (39.0-53.0) % MCV (80.0-100.0) fL RDW (11.5-15.5) % Neutrophils # (1.3-7.7) k/uL Lymphocytes # (1.0-4.8) k/uL Macrocytosis VBG pH (7.31-7.41) VBG pCO2 (37-51) mmHg VBG HCO3 (24-28) mmol/L Potassium 6.0 H (3.5-5.1) mmol/L Chloride 110 H (98-107) mmol/L Carbon Dioxide 11 L (22-30) mmol/L Glucose 119 H (74-99) mg/dL Plasma Lactic Acid Archie (0.7-2.0) mmol/L Total Bilirubin (0.2-1.3) mg/dL Total Protein (6.3-8.2) g/dL Albumin (3.5-5.0) g/dL Urine Protein (Negative) Urine Ketones (Negative) Urine Blood (Negative) Hyaline Casts (0-2) /lpf Urine Mucus (None) /hpf U Benzodiazepines Scrn (NotDetected) U Marijuana (THC) Screen (NotDetected) Assessment and Plan Assessment: 1. Heavy alcohol abuse with impending DT/alcohol withdrawal 2. Severe metabolic acidosis secondary to above/starvation ketosis 3. Hyperkalemia 4. Nausea and vomiting with suspected alcoholic gastritis 5. History of seizure disorder 6. Suspected underlying depression 7. Essential hypertension 8. Marijuana abuse Today, I reviewed his medication list and lab work results. I would add c reatinine kinase Computed tomography scan of the head and cervical spine with no acute findings Hyperkalemia managed medically in the ER with IV insulin, calcium gluconate Patient received 2 L of normal saline in the ER and currently on 0.9/D5 at 100 mL per hour I would consult social work and psychiatry to help manage his depression and alcohol abuse IV Protonix 40 mg daily Symptomatic management for nausea with IV Zofran Repeat lab work as ordered Resume home dose of Keppra Counseled extensively regarding alcohol cessation
[2021-08-20 16:08] LABS: Glucose,Whole Blood 149 mg/dL (75-99)
[2021-08-20 16:41] LABS: Glucose,Whole Blood 99 mg/dL (75-99)
[2021-08-20] MEDS ORDERED: THIAMINE 100 MG TAB PO SCH (17:30)
--- NOTE | 2021-08-20 17:59 | P.CNPUL ---
History of Present Illness Consult date: 08/20/21 Requesting physician: Sarah Wahl Reason for consult: other Chief complaint: Acute alcohol withdrawal, acute metabolic acidosis History of present illness: 36-year-old white male patient with known history of alcohol dependence, EtOH abuse, nicotine dependence, seizure disorder, hypertension, his history of pneumothorax, depression, marijuana use, who came into the emergency department per EMS on 08/20/2021 at 11:00 this morning when he called the ambulance after he had fallen in the bathroom last night. Patient was confused, he possibly had a seizure. He admits that he had been off his seizure medication. He is on Keppra 500 mg twice daily, does not follow with the neurologist. His last drink was last night, he does admit to heavy alcohol consumption. His had nausea and vomiting, but no abdominal pain, no fever. Most of the history was obtained from his mother was at the bedside currently, and his chart. She states patient has had a long history of drinking, [facility] had [facility] this past [facility], history of legal problems related to drunk driving. She states she drinks about 2 pints of whiskey on the regular bases that she knows off. She denies any other illicit drug use. Patient had been living in a motel, he had called his mother this morning to make sure that she knew she was in the hospital. CT of the head and cervical spine showed no acute fracture or dislocation in the cervical spine, no acute intracranial hemorrhage or midline shift. His lab work showed evidence of multiple electrolyte disturbances, and anion gap metabolic acidosis. His anion gap was 30 on admission, CO2 was 7, potassium was 5.8 and subsequently increased to 6.5, his glucose was 194, plasma lactic acid was 4.7, his LFTs were within normal limits, total bilirubin was 1.9, his a urinalysis showed 2+ protein, 4+ ketones, large amount of blood, no clear evidence of infection, urine drug screen was positive for benzodiazepines and marijuana, serum alcohol level was less than 10, serum acetone was positive, COVID-19 PCR was negative. His white blood cell count was 19.3, hemoglobin was 17.7 with a hematocrit of 54, neutrophil, was 18, lymphocyte count was 0.4. Venous blood gas showed pH of 7.16, pCO2 of 33 and bicarb concentration of 11. His INR was 1.0, and PT was 10.5. His elevated serum potassium was treated with 50% dextrose, insulin, and calcium gluconate, his most recent potassium is 6.0. She was given 2 L in IV fluid boluses, he was given thiamine injection in the ER, he was started on Ativan per CIWA protocol, and restarted on his Keppra, and started on diazepam. He is confused, he opens eyes to voice, but does not stay awake, his current CIWA scale is 18, he is mildly diaphoretic, he does admit to mild headache. he will be admitted to intensive care for close monitoring, he is a seizure precautions. Follow-up labs are pending for 1800 this evening. He is tachycardic on a monitor but in sinus mechanism, he is currently on D5 0.9 at a rate of 100 ML per hour. His lactic acid did improve and came down to 1.9 after initial fluid resuscitation. Review of Systems All systems: negative Constitutional: Denies chills, Denies fever Eyes: denies blurred vision, denies pain Ears, nose, mouth and throat: Denies headache, Denies sore throat Cardiovascular: Denies chest pain, Denies shortness of breath Respiratory: Denies cough Gastrointestinal: Denies abdominal pain, Denies diarrhea, Denies nausea, Denies vomiting Musculoskeletal: Denies myalgias Integumentary: Denies pruritus, Denies rash Neurological: Reports balance difficulties, Reports confusion, Reports headaches, Denies numbness, Denies weakness Psychiatric: Reports confusion, Denies anxiety, Denies depression Endocrine: Denies fatigue, Denies weight change Past Medical History Past Medical History: Seizure Disorder Additional Past Medical History / Comment(s): PNEUMOTHORAX History of Any Multi-Drug Resistant Organisms: None Reported Past Surgical History: No Surgical Hx Reported Additional Past Surgical History / Comment(s): LEFT ARM SURGERY, Past Anesthesia/Blood Transfusion Reactions: No Reported Reaction Past Psychological History: Anxiety, Depression Smoking Status: Current every day smoker Past Alcohol Use History: Daily Past Drug Use History: Marijuana - Past Family History Father Family Medical History: Unable to Obtain Mother Family Medical History: Coronary Artery Disease (CAD) Medications and Allergies Home Medications Medication Instructions Recorded Confirmed Type Thiamine [Vitamin B-1] 100 mg PO BID-W/MEALS #60 tab 02/19/21 08/20/21 Rx amLODIPine [Norvasc] 5 mg PO DAILY #30 tab 02/19/21 08/20/21 Rx levETIRAcetam [Keppra] 500 mg PO BID #60 tab 02/19/21 08/20/21 Rx Multivitamins, Thera [Multivitamin 1 tab PO DAILY 07/15/21 08/20/21 History (formulary)] Allergies Allergy/AdvReac Type Severity Reaction Status Date / Time No Known Allergies Allergy Verified 08/20/21 12:03 Physical Exam Vitals: Vital Signs Temp Pulse Pulse Resp BP BP Pulse Ox 08/20/21 15:52 98 18 176/68 98 08/20/21 15:23 99.2 F 106 H 15 161/100 96 08/20/21 14:24 118 H 18 135/96 99 08/20/21 13:30 110 H 22 161/101 100 08/20/21 11:18 97.5 F L 116 H 18 177/100 99 Intake and Output 08/20/21 08/20/21 08/20/21 06:59 14:59 22:59 Other: Weight 81.647 kg 81.647 kg GENERAL EXAM: Somnolent, but easily arousable, 36-year-old white male, on room air with a pulse ox of 98%, tachycardic, confused, mildly diaphoretic, having a mild headache, patient wakes up and answers simple questions, however falls back asleep, comfortable in no apparent distress. HEAD: Normocephalic/atraumatic. EYES: Normal reaction of pupils, equal size. Conjunctiva pink, sclera white. NOSE: Clear with pink turbinates. THROAT: No erythema or exudates. NECK: No masses, no JVD, no thyroid enlargement, no adenopathy. CHEST: No chest wall deformity. Symmetrical expansion. LUNGS: Equal air entry with no crackles, wheeze, rhonchi or dullness. CVS: Regular rate and rhythm, normal S1 and S2, no gallops, no murmurs, no rubs ABDOMEN: Soft, nontender. No hepatosplenomegaly, normal bowel sounds, no guarding or rigidity. EXTREMITIES: No clubbing, no edema, no cyanosis, 2+ pulses and upper and lower extremities. MUSCULOSKELETAL: Muscle strength and tone normal. SPINE: No scoliosis or deformity SKIN: No rashes CENTRAL NERVOUS SYSTEM: Confused, somnolent, but oriented to self and place No focal deficits, tone is normal in all 4 extremities. Results - Laboratory Findings CBC and BMP: 08/20/21 11:45 08/20/21 14:11 PT/INR, D-dimer PT 10.5 sec (9.0-12.0) 08/20/21 11:45 INR 1.0 (<1.2) 08/20/21 11:45 Abnormal lab findings: Abnormal Labs 08/20/21 08/20/21 08/20/21 11:45 11:45 11:45 WBC 19.3 H Hgb 17.7 H D Hct 54.0 H MCV 106.5 H RDW 16.0 H Neutrophils # 18.0 H Lymphocytes # 0.4 L Macrocytosis Marked A VBG pH VBG pCO2 VBG HCO3 Potassium 5.8 H Chloride Carbon Dioxide 7 L* Glucose 194 H POC Glucose (mg/dL) Plasma Lactic Acid Archie 4.7 H* Total Bilirubin 1.9 H Total Protein 9.7 H Albumin 6.0 H Urine Protein Urine Ketones Urine Blood Hyaline Casts Urine Mucus U Benzodiazepines Scrn U Marijuana (THC) Screen 08/20/21 08/20/21 08/20/21 12:40 12:40 12:46 WBC Hgb Hct MCV RDW Neutrophils # Lymphocytes # Macrocytosis VBG pH 7.16 L* VBG pCO2 33 L VBG HCO3 11 L Potassium 6.5 H* Chloride 108 H Carbon Dioxide 7 L* Glucose 157 H POC Glucose (mg/dL) Plasma Lactic Acid Archie Total Bilirubin Total Protein Albumin Urine Protein 2+ H Urine Ketones 4+ H Urine Blood Large H Hyaline Casts 13 H Urine Mucus Rare H U Benzodiazepines Scrn Detected H U Marijuana (THC) Screen Detected H 08/20/21 08/20/21 14:11 16:07 WBC Hgb Hct MCV RDW Neutrophils # Lymphocytes # Macrocytosis VBG pH VBG pCO2 VBG HCO3 Potassium 6.0 H Chloride 110 H Carbon Dioxide 11 L Glucose 119 H POC Glucose (mg/dL) 149 H Plasma Lactic Acid Archie Total Bilirubin Total Protein Albumin Urine Protein Urine Ketones Urine Blood Hyaline Casts Urine Mucus U Benzodiazepines Scrn U Marijuana (THC) Screen - Diagnostic Findings Additional studies: Results of the CT of the head and cervical spine reviewed Assessment and Plan Plan: Assessment: #1. Acute alcohol withdrawal, delirium tremens, on CIWA protocol #2. Dehydration, and electrolyte derangement #3. Anion gap metabolic acidosis, related to lactic acidosis, and possible starvation ketoacidosis #4. Lactic acidosis, improved with IV hydration #5. Hyperkalemia #6. History of seizure disorder, on Keppra for maintenance medication, noncompliant with medication #7. Patient is a current smoker #8. Marijuana use #9. Possible underlying depression #10. Previous history of pneumothorax, the details are not available to us #11. Long history of EtOH abuse, with history of rehab at [facility] and subsequent relapse Plan: Continue IV hydration with D5 0.9 at 75 ML per hour Follow-up labs are pending including electrolytes and renal profile and lactic acid Continue Ativan per CIWA protocol Seizure precautions Patient has been started on Keppra, may have to switch to IVif he is unable to take oral meds Continue thiamine GI and DVT prophylaxis Close hemodynamic monitoring Continue CIWA monitoring, continue aspiration precautions Psychiatry consultation has been requested I performed a history & physical examination of the patient and discussed their management with my nurse practitioner, Manda Ventura. I reviewed the nurse practitioner's note and agree with the documented findings and plan of care. Lung sounds are positive for clear breath sounds throughout the lung swain. The findings and the impression was discussed with the patient. I attest to the documentation by the nurse practitioner. Time with Patient: Greater than 30
[2021-08-20] MEDS: amLODIPine 5 MG TAB PO SCH (19:44)
[2021-08-20] MEDS: diazePAM 5 MG TAB PO SCH ×2 (19:44→22:33)
[2021-08-20] MEDS: PANTOPRAZOLE 40 MG/10 ML VIAL IVP SCH (19:45)
[2021-08-20] MEDS: THIAMINE 100 MG TAB PO SCH (19:45)
[2021-08-20] MEDS: DEXTROSE 5%-0.9% NACL 1,000 ML IV SCH ×2 (19:45→23:13)
[2021-08-20] MEDS: levETIRAcetam 500 MG TAB PO SCH (20:59)
[2021-08-21] MEDS: LORazepam 2 MG/ML INJ IV PRN ×5 (01:40→22:15)
[2021-08-21] MEDS: cloNIDine HCL 0.2 MG TAB PO PRN ×2 (03:41→14:36)
[2021-08-21 06:46] LABS: Anisocytosis Slight; Basophils % (A) 0 %; Eosinophils % (A) 0 %; HCT 42.5 % (39.0-53.0); Lymphocytes # (A) 0.7 k/uL (1.0-4.8); Lymphocytes % (A) 6 %; MCH 35.8 pg (25.0-35.0); MCHC 35.2 g/dL (31.0-37.0); MCV 101.6 fL (80.0-100.0); Macrocytosis Slight; Mean Platelet Volume 9.1; Monocytes # (A) 0.6 k/uL (0-1.0); Monocytes % (A) 5 %; Neutrophils # (A) 10.6 k/uL (1.3-7.7); Neutrophils % (A) 88 %; RBC 4.19 m/uL (4.30-5.90); RDW 16.3 % (11.5-15.5); WBC 12.1 k/uL (3.8-10.6)
[2021-08-21 06:50] LABS: ALT 15 U/L (4-49); AST 43 U/L (17-59); African American GFR (CKD) >90 (>60 ml/min/1.73 sqM); Albumin 4.5 g/dL (3.5-5.0); Alkaline Phosphatase 86 U/L (38-126); Anion Gap 10 mmol/L; Blood Urea Nitrogen 9 mg/dL (9-20); Calcium 10.7 mg/dL (8.4-10.2); Carbon Dioxide 18 mmol/L (22-30); Chloride 107 mmol/L (98-107); Glucose 123 mg/dL (74-99); Magnesium 1.6 mg/dL (1.6-2.3); Non-African American GFR(CKD) >90 (>60 ml/min/1.73 sqM); Sodium 135 mmol/L (137-145); Total Bilirubin 1.3 mg/dL (0.2-1.3); Total Protein 7.4 g/dL (6.3-8.2)
[2021-08-21] MEDS ORDERED: Magnesium Replacement Protocol 1 EACH MISC MISCELLANE PRN (07:19)
[2021-08-21] MEDS: ONDANSETRON 4 MG/2 ML VIAL IVP PRN ×2 (09:00→20:07)
[2021-08-21] MEDS: levETIRAcetam 500 MG TAB PO SCH (09:00)
[2021-08-21] MEDS: THIAMINE 100 MG TAB PO SCH ×2 (09:05→17:11)
[2021-08-21] MEDS: MAGNESIUM SULFATE-D5W PMX 1 GM in DEXTROSE/WATER 1 100ML.BAG IVPB SCH ×2 (09:06→10:05)
[2021-08-21] MEDS: PANTOPRAZOLE 40 MG/10 ML VIAL IVP SCH (09:06)
[2021-08-21] MEDS: MULTIVITAMINS, THERA 1 EACH TAB PO SCH (09:08)
[2021-08-21] MEDS: amLODIPine 5 MG TAB PO SCH (09:08)
[2021-08-21] MEDS: diazePAM 5 MG TAB PO SCH (09:12)
[2021-08-21 09:28] LABS: Platelet Count 90 k/uL (150-450)
[2021-08-21] MEDS: levETIRAcetam IV 500 MG in SODIUM CHLORIDE 0.9% 100 ML IVPB SCH ×2 (09:31→20:44)
[2021-08-21] MEDS: DEXTROSE 5%-0.9% NACL 1,000 ML IV SCH ×2 (10:05→20:14)
--- NOTE | 2021-08-21 11:03 | P.PN ---
Subjective Progress Note Date: 08/21/21 Patient is lethargic this morning. nursing staff patient required 6-8 mg iv ativan since last night secondary to withdrawal. nursing staff also informed me that patient had some hematuria with some penile bleeding after he was done in urination. patient said this happened to him prior at home. there is no evidence of uti on urinalysis from yesterday. Objective - Vital Signs Vital signs: Vital Signs Temp 98.7 F 08/21/21 08:00 Pulse 94 08/21/21 10:00 Resp 35 H 08/21/21 10:00 BP 146/97 08/21/21 10:00 Pulse Ox 95 08/21/21 10:00 Intake & Output 08/20/21 08/21/21 08/21/21 18:59 06:59 18:59 Intake Total 1360 520 Output Total 325 550 225 Balance -325 810 295 Weight 81.647 kg 80.4 kg Intake: IV 1000 400 Dextrose 5%-0.9% NaCl 1, 1000 400 000 ml @ 100 mls/hr IV . Q10H [facility] Rx#:[id number] Oral 360 120 Output: Urine 325 550 225 Other: Voiding Method Urinal Urinal Incontinent Incontinent # Voids 1 1 - Exam General: The patient is awake and alert, in no distress Eye: there is normal conjunctiva bilaterally. Neck: The neck is supple, there is no JVD. Cardiovascular: Normal S1-S2, no S3-S4, no murmurs. Respiratory: Lungs clear to auscultation bilaterally Gastrointestinal: Abdomen is soft, nontender Musculoskeletal: There is no pedal edema. Neurological:. Speech is normal. Skin: Skin is warm and dry - Labs CBC & Chem 7: 08/21/21 05:05 08/21/21 05:05 Labs: Abnormal Lab Results - Last 24 Hours (Table) 08/20/21 08/20/21 08/20/21 Range/Units 11:45 11:45 11:45 WBC 19.3 H (3.8-10.6) k/uL RBC (4.30-5.90) m/uL Hgb 17.7 H D (13.0-17.5) gm/dL Hct 54.0 H (39.0-53.0) % MCV 106.5 H (80.0-100.0) fL MCH (25.0-35.0) pg RDW 16.0 H (11.5-15.5) % Plt Count (150-450) k/uL Neutrophils # 18.0 H (1.3-7.7) k/uL Lymphocytes # 0.4 L (1.0-4.8) k/uL Macrocytosis Marked A VBG pH (7.31-7.41) VBG pCO2 (37-51) mmHg VBG HCO3 (24-28) mmol/L Sodium (137-145) mmol/L Potassium 5.8 H (3.5-5.1) mmol/L Chloride (98-107) mmol/L Carbon Dioxide 7 L* (22-30) mmol/L Glucose 194 H (74-99) mg/dL POC Glucose (mg/dL) (75-99) mg/dL Plasma Lactic Acid Archie 4.7 H* (0.7-2.0) mmol/L Calcium (8.4-10.2) mg/dL Total Bilirubin 1.9 H (0.2-1.3) mg/dL Total Protein 9.7 H (6.3-8.2) g/dL Albumin 6.0 H (3.5-5.0) g/dL Urine Protein (Negative) Urine Ketones (Negative) Urine Blood (Negative) Hyaline Casts (0-2) /lpf Urine Mucus (None) /hpf U Benzodiazepines Scrn (NotDetected) U Marijuana (THC) Screen (NotDetected) 08/20/21 08/20/21 08/20/21 Range/Units 12:40 12:40 12:46 WBC (3.8-10.6) k/uL RBC (4.30-5.90) m/uL Hgb (13.0-17.5) gm/dL Hct (39.0-53.0) % MCV (80.0-100.0) fL MCH (25.0-35.0) pg RDW (11.5-15.5) % Plt Count (150-450) k/uL Neutrophils # (1.3-7.7) k/uL Lymphocytes # (1.0-4.8) k/uL Macrocytosis VBG pH 7.16 L* (7.31-7.41) VBG pCO2 33 L (37-51) mmHg VBG HCO3 11 L (24-28) mmol/L Sodium (137-145) mmol/L Potassium 6.5 H* (3.5-5.1) mmol/L Chloride 108 H (98-107) mmol/L Carbon Dioxide 7 L* (22-30) mmol/L Glucose 157 H (74-99) mg/dL POC Glucose (mg/dL) (75-99) mg/dL Plasma Lactic Acid Archie (0.7-2.0) mmol/L Calcium (8.4-10.2) mg/dL Total Bilirubin (0.2-1.3) mg/dL Total Protein (6.3-8.2) g/dL Albumin (3.5-5.0) g/dL Urine Protein 2+ H (Negative) Urine Ketones 4+ H (Negative) Urine Blood Large H (Negative) Hyaline Casts 13 H (0-2) /lpf Urine Mucus Rare H (None) /hpf U Benzodiazepines Scrn Detected H (NotDetected) U Marijuana (THC) Screen Detected H (NotDetected) 08/20/21 08/20/21 08/20/21 Range/Units 14:11 16:07 20:10 WBC (3.8-10.6) k/uL RBC (4.30-5.90) m/uL Hgb (13.0-17.5) gm/dL Hct (39.0-53.0) % MCV (80.0-100.0) fL MCH (25.0-35.0) pg RDW (11.5-15.5) % Plt Count (150-450) k/uL Neutrophils # (1.3-7.7) k/uL Lymphocytes # (1.0-4.8) k/uL Macrocytosis VBG pH (7.31-7.41) VBG pCO2 (37-51) mmHg VBG HCO3 (24-28) mmol/L Sodium (137-145) mmol/L Potassium 6.0 H 5.2 H (3.5-5.1) mmol/L Chloride 110 H (98-107) mmol/L Carbon Dioxide 11 L (22-30) mmol/L Glucose 119 H (74-99) mg/dL POC Glucose (mg/dL) 149 H (75-99) mg/dL Plasma Lactic Acid Archie (0.7-2.0) mmol/L Calcium (8.4-10.2) mg/dL Total Bilirubin (0.2-1.3) mg/dL Total Protein (6.3-8.2) g/dL Albumin (3.5-5.0) g/dL Urine Protein (Negative) Urine Ketones (Negative) Urine Blood (Negative) Hyaline Casts (0-2) /lpf Urine Mucus (None) /hpf U Benzodiazepines Scrn (NotDetected) U Marijuana (THC) Screen (NotDetected) 08/21/21 08/21/21 Range/Units 05:05 05:05 WBC 12.1 H (3.8-10.6) k/uL RBC 4.19 L (4.30-5.90) m/uL Hgb (13.0-17.5) gm/dL Hct (39.0-53.0) % MCV 101.6 H (80.0-100.0) fL MCH 35.8 H (25.0-35.0) pg RDW 16.3 H (11.5-15.5) % Plt Count 90 L (150-450) k/uL Neutrophils # 10.6 H (1.3-7.7) k/uL Lymphocytes # 0.7 L (1.0-4.8) k/uL Macrocytosis VBG pH (7.31-7.41) VBG pCO2 (37-51) mmHg VBG HCO3 (24-28) mmol/L Sodium 135 L (137-145) mmol/L Potassium (3.5-5.1) mmol/L Chloride (98-107) mmol/L Carbon Dioxide 18 L (22-30) mmol/L Glucose 123 H (74-99) mg/dL POC Glucose (mg/dL) (75-99) mg/dL Plasma Lactic Acid Archie (0.7-2.0) mmol/L Calcium 10.7 H (8.4-10.2) mg/dL Total Bilirubin (0.2-1.3) mg/dL Total Protein (6.3-8.2) g/dL Albumin (3.5-5.0) g/dL Urine Protein (Negative) Urine Ketones (Negative) Urine Blood (Negative) Hyaline Casts (0-2) /lpf Urine Mucus (None) /hpf U Benzodiazepines Scrn (NotDetected) U Marijuana (THC) Screen (NotDetected) Assessment and Plan Assessment: 1. Heavy alcohol abuse with impending DT/alcohol withdrawal 2. Severe metabolic acidosis secondary to above/starvation ketosis, improving gradually 3. Hyperkalemia, treated medically 4. Nausea and vomiting with suspected alcoholic gastritis 5. History of seizure disorder 6. Suspected underlying depression 7. Essential hypertension 8. Marijuana abuse Today, I reviewed his medication list and lab work results. I would add creatinine kinase Computed tomography scan of the head and cervical spine with no acute findings 0.9/D5 at 100 mL per hour I consulted social work and psychiatry to help manage his depression and alcohol abuse IV Protonix 40 mg daily Symptomatic management for nausea with IV Zofran Resume home dose of Keppra Counseled extensively regarding alcohol cessation Consults urology for further evaluation of hematuria and obtain ultrasound to rule out stones
--- NOTE | 2021-08-21 11:21 | P.PN ---
Subjective Progress Note Date: 08/21/21 Principal diagnosis: Acute EtOH withdrawal, dehydration, hyperkalemia, 36-year-old white male patient with known history of alcohol dependence, EtOH abuse, nicotine dependence, seizure disorder, hypertension, his history of pneumothorax, depression, marijuana use, who came into the emergency department per EMS on 08/20/2021 at 11:00 this morning when he called the ambulance after he had fallen in the bathroom last night. Patient was confused, he possibly had a seizure. He admits that he had been off his seizure medication. He is on Keppra 500 mg twice daily, does not follow with the neurologist. His last drink was last night, he does admit to heavy alcohol consumption. His had nausea and vomiting, but no abdominal pain, no fever. Most of the history was obtained from his mother was at the bedside currently, and his chart. She states patient has had a long history of drinking, he had been at [facility] 3 times this past summer, history of legal problems related to drunk driving. She states she drinks about 2 pints of whiskey on the regular bases that she knows off. She denies any other illicit drug use. Patient had been living in a motel, he had called his mother this morning to make sure that she knew she was in the hospital. CT of the head and cervical spine showed no acute fracture or dislocation in the cervical spine, no acute intracranial hemorrhage or midline shift. His lab work showed evidence of multiple electrolyte disturbances, and anion gap metabolic acidosis. His anion gap was 30 on admission, CO2 was 7, potassium was 5.8 and subsequently increased to 6.5, his glucose was 194, plasma lactic acid was 4.7, his LFTs were within normal limits, total bilirubin was 1.9, his a urinalysis showed 2+ protein, 4+ ketones, large amount of blood, no clear evidence of infection, urine drug screen was positive for benzodiazepines and marijuana, serum alcohol level was less than 10, serum acetone was positive, COVID-19 PCR was negative. His white blood cell count was 19.3, hemoglobin was 17.7 with a hematocrit of 54, neutrophil, was 18, lymphocyte count was 0.4. Venous blood gas showed pH of 7.16, pCO2 of 33 and bicarb concentration of 11. His INR was 1.0, and PT was 10.5. His elevated serum potassium was treated with 50% dextrose, insulin, and calcium gluconate, his most recent potassium is 6.0. She was given 2 L in IV fluid boluses, he was given thiamine injection in the ER, he was started on Ativan per CIWA protocol, and restarted on his Keppra, and started on diazepam. He is confused, he opens eyes to voice, but does not stay awake, his current CIWA scale is 18, he is mildly diaphoretic, he does admit to mild headache. he will be admitted to intensive care for close monitoring, he is a seizure precautions. Follow-up labs are pending for 1800 this evening. He is tachycardic on a monitor but in sinus mechanism, he is currently on D5 0.9 at a rate of 100 ML per hour. His lactic acid did improve and came down to 1.9 after initial fluid resuscitation. On today's evaluation on 08/21/2021 patient seen in follow-up in the intensive care unit, he is still somnolent, but easily arousable, he is responding appropriately with short yes or no questions, denies any acute distress. Breathing comfortably. Remains pulse ox is 95%, afebrile, hemodynamically stable, he remains on D5 0.9 normal saline at a rate of 100 ML per hour. His current CIWA scale is 15, no diaphoresis, denies headaches, is on CIWA scale. no complaints of chest discomfort no cough no wheezing. Today's labs have been reviewed showing white blood cell count 12.1, improved from yesterday's value, hemoglobin is 15, hematocrit is 42.5, sodium is 135, potassium is 4.0, chloride is 107, CO2 is 18, anion gap has closed and is down to 10, BUN is 9, creatinine 0.72. He denied patient had episode of urinary incontinence, this morning he did void, and the urine appears to be grossly bloody. He states he had previous episode of hematuria in the past. Platelet count is down to 90. Dynamically stable, less tachycardic, in sinus mechanism. Calcium is 10.7 on today's labs. Objective - Vital Signs Vital signs: Vital Signs Temp 98.7 F 08/21/21 08:00 Pulse 94 08/21/21 10:00 Resp 35 H 08/21/21 10:00 BP 146/97 08/21/21 10:00 Pulse Ox 95 08/21/21 10:00 Intake & Output 08/20/21 08/21/21 08/21/21 18:59 06:59 18:59 Intake Total 1360 520 Output Total 325 550 225 Balance -325 810 295 Weight 81.647 kg 80.4 kg Intake: IV 1000 400 Dextrose 5%-0.9% NaCl 1, 1000 400 000 ml @ 100 mls/hr IV . Q10H [facility] Rx#:[id number] Oral 360 120 Output: Urine 325 550 225 Other: Voiding Method Urinal Urinal Incontinent Incontinent # Voids 1 1 - Exam GENERAL EXAM: Somnolent, but easily arousable, 36-year-old white male, on room air with a pulse ox of 98%, patient wakes up and answers simple questions, however falls back asleep, comfortable in no apparent distress. HEAD: Normocephalic/atraumatic. EYES: Normal reaction of pupils, equal size. Conjunctiva pink, sclera white. NOSE: Clear with pink turbinates. THROAT: No erythema or exudates. NECK: No masses, no JVD, no thyroid enlargement, no adenopathy. CHEST: No chest wall deformity. Symmetrical expansion. LUNGS: Equal air entry with no crackles, wheeze, rhonchi or dullness. CVS: Regular rate and rhythm, normal S1 and S2, no gallops, no murmurs, no rubs ABDOMEN: Soft, nontender. No hepatosplenomegaly, normal bowel sounds, no guarding or rigidity. EXTREMITIES: No clubbing, no edema, no cyanosis, 2+ pulses and upper and lower extremities. MUSCULOSKELETAL: Muscle strength and tone normal. SPINE: No scoliosis or deformity SKIN: No rashes CENTRAL NERVOUS SYSTEM: somnolent, but oriented to self and place No focal deficits, tone is normal in all 4 extremities. - Labs CBC & Chem 7: 08/21/21 05:05 08/21/21 05:05 Labs: Abnormal Lab Results - Last 24 Hours (Table) 08/20/21 08/20/21 08/20/21 Range/Units 11:45 11:45 11:45 WBC 19.3 H (3.8-10.6) k/uL RBC (4.30-5.90) m/uL Hgb 17.7 H D (13.0-17.5) gm/dL Hct 54.0 H (39.0-53.0) % MCV 106.5 H (80.0-100.0) fL MCH (25.0-35.0) pg RDW 16.0 H (11.5-15.5) % Plt Count (150-450) k/uL Neutrophils # 18.0 H (1.3-7.7) k/uL Lymphocytes # 0.4 L (1.0-4.8) k/uL Macrocytosis Marked A VBG pH (7.31-7.41) VBG pCO2 (37-51) mmHg VBG HCO3 (24-28) mmol/L Sodium (137-145) mmol/L Potassium 5.8 H (3.5-5.1) mmol/L Chloride (98-107) mmol/L Carbon Dioxide 7 L* (22-30) mmol/L Glucose 194 H (74-99) mg/dL POC Glucose (mg/dL) (75-99) mg/dL Plasma Lactic Acid Archie 4.7 H* (0.7-2.0) mmol/L Calcium (8.4-10.2) mg/dL Total Bilirubin 1.9 H (0.2-1.3) mg/dL Total Protein 9.7 H (6.3-8.2) g/dL Albumin 6.0 H (3.5-5.0) g/dL Urine Protein (Negative) Urine Ketones (Negative) Urine Blood (Negative) Hyaline Casts (0-2) /lpf Urine Mucus (None) /hpf U Benzodiazepines Scrn (NotDetected) U Marijuana (THC) Screen (NotDetected) 08/20/21 08/20/21 08/20/21 Range/Units 12:40 12:40 12:46 WBC (3.8-10.6) k/uL RBC (4.30-5.90) m/uL Hgb (13.0-17.5) gm/dL Hct (39.0-53.0) % MCV (80.0-100.0) fL MCH (25.0-35.0) pg RDW (11.5-15.5) % Plt Count (150-450) k/uL Neutrophils # (1.3-7.7) k/uL Lymphocytes # (1.0-4.8) k/uL Macrocytosis VBG pH 7.16 L* (7.31-7.41) VBG pCO2 33 L (37-51) mmHg VBG HCO3 11 L (24-28) mmol/L Sodium (137-145) mmol/L Potassium 6.5 H* (3.5-5.1) mmol/L Chloride 108 H (98-107) mmol/L Carbon Dioxide 7 L* (22-30) mmol/L Glucose 157 H (74-99) mg/dL POC Glucose (mg/dL) (75-99) mg/dL Plasma Lactic Acid Archie (0.7-2.0) mmol/L Calcium (8.4-10.2) mg/dL Total Bilirubin (0.2-1.3) mg/dL Total Protein (6.3-8.2) g/dL Albumin (3.5-5.0) g/dL Urine Protein 2+ H (Negative) Urine Ketones 4+ H (Negative) Urine Blood Large H (Negative) Hyaline Casts 13 H (0-2) /lpf Urine Mucus Rare H (None) /hpf U Benzodiazepines Scrn Detected H (NotDetected) U Marijuana (THC) Screen Detected H (NotDetected) 08/20/21 08/20/21 08/20/21 Range/Units 14:11 16:07 20:10 WBC (3.8-10.6) k/uL RBC (4.30-5.90) m/uL Hgb (13.0-17.5) gm/dL Hct (39.0-53.0) % MCV (80.0-100.0) fL MCH (25.0-35.0) pg RDW (11.5-15.5) % Plt Count (150-450) k/uL Neutrophils # (1.3-7.7) k/uL Lymphocytes # (1.0-4.8) k/uL Macrocytosis VBG pH (7.31-7.41) VBG pCO2 (37-51) mmHg VBG HCO3 (24-28) mmol/L Sodium (137-145) mmol/L Potassium 6.0 H 5.2 H (3.5-5.1) mmol/L Chloride 110 H (98-107) mmol/L Carbon Dioxide 11 L (22-30) mmol/L Glucose 119 H (74-99) mg/dL POC Glucose (mg/dL) 149 H (75-99) mg/dL Plasma Lactic Acid Archie (0.7-2.0) mmol/L Calcium (8.4-10.2) mg/dL Total Bilirubin (0.2-1.3) mg/dL Total Protein (6.3-8.2) g/dL Albumin (3.5-5.0) g/dL Urine Protein (Negative) Urine Ketones (Negative) Urine Blood (Negative) Hyaline Casts (0-2) /lpf Urine Mucus (None) /hpf U Benzodiazepines Scrn (NotDetected) U Marijuana (THC) Screen (NotDetected) 08/21/21 08/21/21 Range/Units 05:05 05:05 WBC 12.1 H (3.8-10.6) k/uL RBC 4.19 L (4.30-5.90) m/uL Hgb (13.0-17.5) gm/dL Hct (39.0-53.0) % MCV 101.6 H (80.0-100.0) fL MCH 35.8 H (25.0-35.0) pg RDW 16.3 H (11.5-15.5) % Plt Count 90 L (150-450) k/uL Neutrophils # 10.6 H (1.3-7.7) k/uL Lymphocytes # 0.7 L (1.0-4.8) k/uL Macrocytosis VBG pH (7.31-7.41) VBG pCO2 (37-51) mmHg VBG HCO3 (24-28) mmol/L Sodium 135 L (137-145) mmol/L Potassium (3.5-5.1) mmol/L Chloride (98-107) mmol/L Carbon Dioxide 18 L (22-30) mmol/L Glucose 123 H (74-99) mg/dL POC Glucose (mg/dL) (75-99) mg/dL Plasma Lactic Acid Archie (0.7-2.0) mmol/L Calcium 10.7 H (8.4-10.2) mg/dL Total Bilirubin (0.2-1.3) mg/dL Total Protein (6.3-8.2) g/dL Albumin (3.5-5.0) g/dL Urine Protein (Negative) Urine Ketones (Negative) Urine Blood (Negative) Hyaline Casts (0-2) /lpf Urine Mucus (None) /hpf U Benzodiazepines Scrn (NotDetected) U Marijuana (THC) Screen (NotDetected) Assessment and Plan Plan: Assessment: #1. Acute alcohol withdrawal, delirium tremens, on [facility] protocol #2. Dehydration, and electrolyte derangement, corrected #3. Anion gap metabolic acidosis, related to lactic acidosis, and possible starvation ketoacidosis, corrected, and anion gap is closed on today's labs, lac tic acid is now within normal limits with the IV fluid resuscitation, and is tolerating sips of clear liquids, will be started on diet, for now remains on D5 0.9 normal saline at rate of 100 ML per hour. #4. Lactic acidosis, resolved with IV hydration #5. Hyperkalemia, resolved #6. History of seizure disorder, on Keppra for maintenance medication, noncompliant with medication #7. Patient is a current smoker #8. Marijuana use #9. Possible underlying depression #10. Previous history of pneumothorax, the details are not available to us #11. Long history of EtOH abuse, with history of rehab at [facility] and subsequent relapse #12. Thrombocytopenia related to chronic alcoholism #13. Hematuria, likely related to thrombocytopenia Plan: Continue IV hydration with D5 0.9 at 75 ML per hour Follow-up labs are reviewed, serum potassium is corrected and his is within normal limits, anion gap has closed lactic acid is within normal limits Hemodynamically patient is stable, Continue Ativan per [facility] protocol Seizure precautions he is having intermittent nausea and vomiting, will be switched to IV Keppra 500 mg twice a day Continue thiamine Had hematuria this am, likely related to low platelet count From pulmonary/critical care perspective he stable for transfer out of intensive care unit to regular medical surgical floor without telemetry GI and DVT prophylaxis I performed a history & physical examination of the patient and discussed their management with my nurse practitioner, Manda Ventura. I reviewed the nurse practitioner's note and agree with the documented findings and plan of care. Lung sounds are positive for clear breath sounds throughout the lung swain. The findings and the impression was discussed with the patient. I attest to the documentation by the nurse practitioner. Time with Patient: Less than 30
--- NOTE | 2021-08-21 14:27 | US ---
EXAMINATION TYPE: US kidneys/renal and bladder DATE OF EXAM: 08/21/2021 COMPARISON: NONE CLINICAL HISTORY: Hematuria to rule out stone. EXAM MEASUREMENTS: Right Kidney: 11.5 x 5.3 x 6.1 cm Left Kidney: 11.2 x 5.7 x 5.3 cm Patient unable to respond to examiner in any way, laying supine, unable to move. Technically difficul t, limited study. Right Kidney: possible inferior kidney stone measuring 4mm Left Kidney: No hydronephrosis or masses seen, very limited visualization Bladder: not fully distended There is no evidence for hydronephrosis at this point in time. Difficult to exclude nonobstructive ca lculus inferior pole right kidney. No masses are identified. The urinary bladder is anechoic. Bila teral ureteral jets are seen. IMPRESSION: Possible nonobstructive right nephrolithiasis. There are some limitations to the exam.
--- NOTE | 2021-08-21 16:10 | CONS ---
CONSULTATION DATE OF SERVICE: 08/21/2021. PURPOSE FOR CONSULTATION: Evaluate for substance use issues and depression. HISTORY OF PRESENTING ILLNESS: The patient is a 36-year-old male. He has a significant history of alcohol dependence and abuse and seizure disorder which is likely secondary to episodes of alcohol withdrawal. His current situation is that he was staying in a hotel room. He went into the bathroom and passed out. He found himself in the morning time lying on the floor, which precipitated his coming to the hospital. He had electrolyte imbalance and had significant alcohol withdrawal issues. When I interviewed the patient he was not able to give a very clear history of current or past events. He provided only very limited information. He apparently has long-term alcohol issues. He has had three [facility] admissions, including a 14-day admission about one month ago. He was referred for followup, though seemed to suggest that he did not make much effort to get followup after he was discharged. He said after about one week he started drinking again. His usual alcohol use is about one fifth a day. He acknowledged that he has had a history of seizures, which he believes has mostly been related to alcohol withdrawal. He suggests that he has had delirium tremens, though he did not clearly understand what delirium tremens actually is. The best that I was able to tell from his current situation is that he had been living with a woman for just a few weeks. She had a baby. Apparently she requested that he move out. He was not able to provide any clear details regarding this. He said he had been staying with a friend at least 2 days prior to this event. He ultimately ended up in a hotel. 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 Again he did not provide details. He states that he has not previously had a psychiatric hospitalization, nor has he been in any ongoing mental health care. He is not currently on any psychotropic medications and suggested that he had not been prescribed psychotropic medications in the past. When I asked about family, he says he has a mother in the general vicinity, though he indicated she lives quite a ways away from here. He says that currently he is homeless. He acknowledged having a depressed mood. He was not able to provide any clear information about mood-related issues or his general function over the last few weeks or months. He was not able to answer other questions in regard to possible psychiatric symptoms. MENTAL STATUS EXAM: Patient was lying in bed. When I first came in the room to talk to him, he responded to questions, but he spoke in such a low voice that it was impossible to hear what he was saying. I asked him to repeat himself about 5 or 6 times, which he did, though I was not able to hear anything that he said. He needed breaks for urination. It is noteworthy that he passed a fairly small amount of strawberry-colored urine. When I return to the room he was able to talk in a manner that I could hear him and understand what he was saying. He did not say much. He had a monotone, soft voice. He spoke in phrases and sentences generally. His thoughts were coherent. He provided very little information. His affect was flat, his mood depressed. He did not show any emotional expression one way or another. He seemed significantly distressed. It was difficult to assess for thought disorder. He did not make any indications of thoughts of harm. He did not respond to any formal cognitive questions. He did not know the day or date. He did not make an effort to answer other formal cognitive questions. ASSESSMENT: This 36-year-old male is diagnosed with alcohol dependence, acute alcohol withdrawal and possible major depression. He apparently has a seizure disorder, though by his suggestion the seizures have been primarily related to withdrawal by his perception. He was not able to make any assessment in regard to his current situation or what his substance use or mental health issues might be or what he might see as follow-up recommendations. At this point I would have Psychiatry continue to follow. Hopefully over the next 24 hours, he may have some clearing of thoughts to where he could communicate in a better way and provide some ideas as to what would be best services to try to help support him. He might be appropriate for a short-term psychiatric admission for depression; not clear if he has much for a support system. I will alert Dr. Watson in terms of further followup. MMLAUROL / FRANCINEN: [id number] /
[2021-08-21 18:49] LABS: Basophils % (A) 0 %; Eosinophils # (A) 0.1 k/uL (0-0.7); Eosinophils % (A) 1 %; HCT 43.1 % (39.0-53.0); HGB 14.4 gm/dL (13.0-17.5); Lymphocytes # (A) 0.7 k/uL (1.0-4.8); Lymphocytes % (A) 7 %; MCH 33.8 pg (25.0-35.0); MCHC 33.3 g/dL (31.0-37.0); MCV 101.6 fL (80.0-100.0); Macrocytosis Slight; Mean Platelet Volume 8.8; Monocytes # (A) 0.3 k/uL (0-1.0); Monocytes % (A) 3 %; Neutrophils % (A) 89 %; Platelet Count 74 k/uL (150-450); RBC 4.24 m/uL (4.30-5.90); RDW 15.4 % (11.5-15.5); WBC 10.1 k/uL (3.8-10.6)
--- NOTE | 2021-08-21 22:57 | P.GSCN ---
History of Present Illness Consult date: 08/21/21 Reason for Consult: Urethral bleeding Requesting physician: Sarah Wahl History of present illness: The patient is a 36-year-old white male patient with known history of EtOH abuse, nicotine dependence, seizure disorder, hypertension, history of pneumothorax, depression, and marijuana use. The patient has been in rehab 3 times a summer. He was intoxicated, passed out, and fell. He subsequently presented to the emergency room as was admitted. He has developed urethral bleeding, as well as gross hematuria. Ultrasound shows a possible right renal calculus. The left kidney was incompletely visualized. Review of Systems ROS unobtainable: due to mental status - Gastrointestinal Reports nausea, Reports vomiting Past Medical History Past Medical History: Seizure Disorder Additional Past Medical History / Comment(s): PNEUMOTHORAX History of Any Multi-Drug Resistant Organisms: None Reported Past Surgical History: No Surgical Hx Reported Additional Past Surgical History / Comment(s): LEFT ARM SURGERY, Past Anesthesia/Blood Transfusion Reactions: No Reported Reaction Past Psychological History: Anxiety, Depression Smoking Status: Current every day smoker Past Alcohol Use History: Daily Past Drug Use History: Marijuana - Past Family History Father Family Medical History: Unable to Obtain Mother Family Medical History: Coronary Artery Disease (CAD) Medications and Allergies Home Medications Medication Instructions Recorded Confirmed Type Thiamine [Vitamin B-1] 100 mg PO BID-W/MEALS #60 tab 02/19/21 08/20/21 Rx amLODIPine [Norvasc] 5 mg PO DAILY #30 tab 02/19/21 08/20/21 Rx levETIRAcetam [Keppra] 500 mg PO BID #60 tab 02/19/21 08/20/21 Rx Multivitamins, Thera [Multivitamin 1 tab PO DAILY 07/15/21 08/20/21 History (formulary)] Allergies Allergy/AdvReac Type Severity Reaction Status Date / Time No Known Allergies Allergy Verified 08/20/21 12:03 Surgical - Exam Vital Signs Temp Pulse Resp BP Pulse Ox 97.5 F L 116 H 18 177/100 99 08/20/21 11:18 08/20/21 11:18 08/20/21 11:18 08/20/21 11:18 08/20/21 11:18 - General well developed, well nourished, no distress - Respiratory normal respiratory effort - Abdomen Abdomen: soft, non tender, no guarding, no rigid, no rebound - Genitourinary normal penis with no external lesions, testicles non-tender - Psychiatric oriented to time, oriented to person, oriented to place, speech is normal, memory intact Results - Labs 08/21/21 18:35 08/21/21 05:05 Abnormal Lab Results - Last 24 Hours (Table) 08/20/21 08/21/21 08/21/21 Range/Units 20:10 05:05 05:05 WBC 12.1 H (3.8-10.6) k/uL RBC 4.19 L (4.30-5.90) m/uL MCV 101.6 H (80.0-100.0) fL MCH 35.8 H (25.0-35.0) pg RDW 16.3 H (11.5-15.5) % Plt Count 90 L (150-450) k/uL Neutrophils # 10.6 H (1.3-7.7) k/uL Lymphocytes # 0.7 L (1.0-4.8) k/uL Sodium 135 L (137-145) mmol/L Potassium 5.2 H (3.5-5.1) mmol/L Carbon Dioxide 18 L (22-30) mmol/L Glucose 123 H (74-99) mg/dL Calcium 10.7 H (8.4-10.2) mg/dL 08/21/21 Range/Units 18:35 WBC (3.8-10.6) k/uL RBC 4.24 L (4.30-5.90) m/uL MCV 101.6 H (80.0-100.0) fL MCH (25.0-35.0) pg RDW (11.5-15.5) % Plt Count 74 L (150-450) k/uL Neutrophils # 9.0 H (1.3-7.7) k/uL Lymphocytes # 0.7 L (1.0-4.8) k/uL Sodium (137-145) mmol/L Potassium (3.5-5.1) mmol/L Carbon Dioxide (22-30) mmol/L Glucose (74-99) mg/dL Calcium (8.4-10.2) mg/dL Diabetes panel 08/20/21 08/21/21 Range/Units 20:10 05:05 Sodium 135 L (137-145) mmol/L Potassium 5.2 H 4.0 (3.5-5.1) mmol/L Chloride 107 (98-107) mmol/L Carbon Dioxide 18 L (22-30) mmol/L BUN 9 (9-20) mg/dL Creatinine 0.72 (0.66-1.25) mg/dL Glucose 123 H (74-99) mg/dL Calcium 10.7 H (8.4-10.2) mg/dL AST 43 (17-59) U/L ALT 15 (4-49) U/L Alkaline Phosphatase 86 (38-126) U/L Total Protein 7.4 (6.3-8.2) g/dL Albumin 4.5 (3.5-5.0) g/dL Calcium panel 08/21/21 Range/Units 05:05 Calcium 10.7 H (8.4-10.2) mg/dL Albumin 4.5 (3.5-5.0) g/dL Pituitary panel 08/20/21 08/21/21 Range/Units 20:10 05:05 Sodium 135 L (137-145) mmol/L Potassium 5.2 H 4.0 (3.5-5.1) mmol/L Chloride 107 (98-107) mmol/L Carbon Dioxide 18 L (22-30) mmol/L BUN 9 (9-20) mg/dL Creatinine 0.72 (0.66-1.25) mg/dL Glucose 123 H (74-99) mg/dL Calcium 10.7 H (8.4-10.2) mg/dL Adrenal panel 08/20/21 08/21/21 Range/Units 20:10 05:05 Sodium 135 L (137-145) mmol/L Potassium 5.2 H 4.0 (3.5-5.1) mmol/L Chloride 107 (98-107) mmol/L Carbon Dioxide 18 L (22-30) mmol/L BUN 9 (9-20) mg/dL Creatinine 0.72 (0.66-1.25) mg/dL Glucose 123 H (74-99) mg/dL Calcium 10.7 H (8.4-10.2) mg/dL Total Bilirubin 1.3 (0.2-1.3) mg/dL AST 43 (17-59) U/L ALT 15 (4-49) U/L Alkaline Phosphatase 86 (38-126) U/L Total Protein 7.4 (6.3-8.2) g/dL Albumin 4.5 (3.5-5.0) g/dL - Imaging US - abdomen: report reviewed Assessment and Plan (1) Urethrorrhagia Current Visit: Yes Status: Acute Code(s): N36.8 - OTHER SPECIFIED DISORDERS OF URETHRA SNOMED Code(s): 549519783 Plan: This patient has multiple medical problems and is currently experience urethral bleeding, the etiology of which is unclear. Given his recent alcohol abuse, urethral instrumentation cannot be excluded. The degree of urethral bleeding has decreased considerably throughout the day. He has also been noted to have hematuria. I strongly suspect a lower urinary tract source of the bleeding. For now he will be observed. If the bleeding persists, cystourethroscopy will be considered. Time with Patient: Greater than 30
[2021-08-22] MEDS: ONDANSETRON 4 MG/2 ML VIAL IVP PRN ×3 (03:23→19:37)
[2021-08-22] MEDS: LORazepam 2 MG/ML INJ IV PRN (03:36)
[2021-08-22] MEDS: HYDROmorphone 0.5 MG/0.5 ML SYRINGE IVP PRN ×2 (04:23→19:36)
[2021-08-22] MEDS: DEXTROSE 5%-0.9% NACL 1,000 ML IV SCH (05:28)
[2021-08-22 08:56] LABS: Anisocytosis Slight; Basophils % (A) 0 %; Eosinophils % (A) 0 %; HCT 41.6 % (39.0-53.0); HGB 14.4 gm/dL (13.0-17.5); Lymphocytes # (A) 0.7 k/uL (1.0-4.8); Lymphocytes % (A) 9 %; MCH 35.2 pg (25.0-35.0); MCHC 34.7 g/dL (31.0-37.0); MCV 101.5 fL (80.0-100.0); Macrocytosis Slight; Mean Platelet Volume 9.4; Monocytes # (A) 0.3 k/uL (0-1.0); Monocytes % (A) 4 %; Neutrophils # (A) 6.6 k/uL (1.3-7.7); Neutrophils % (A) 86 %; RDW 16.3 % (11.5-15.5); WBC 7.6 k/uL (3.8-10.6)
[2021-08-22 09:04] LABS: Platelet Count 67 k/uL (150-450)
[2021-08-22] MEDS: levETIRAcetam IV 500 MG in SODIUM CHLORIDE 0.9% 100 ML IVPB SCH (09:10)
[2021-08-22] MEDS: THIAMINE 100 MG TAB PO SCH ×2 (09:11→18:07)
[2021-08-22] MEDS: PANTOPRAZOLE 40 MG/10 ML VIAL IVP SCH (09:11)
[2021-08-22] MEDS: MULTIVITAMINS, THERA 1 EACH TAB PO SCH (09:11)
[2021-08-22] MEDS: amLODIPine 5 MG TAB PO SCH ×2 (09:11→20:34)
--- NOTE | 2021-08-22 09:14 | P.PN ---
Progress Note - Text Progress Note Date: 08/22/21 The patient continues to experience mild urethral bleeding. His hemoglobin level is stable at 14.4. He reports slight terminal dysuria. Urethral bleeding is typically not associated with underlying pathology, but cystourethroscopy would be indicated if it fails to resolve.
--- NOTE | 2021-08-22 12:06 | P.PN ---
Subjective Progress Note Date: 08/22/21 Principal diagnosis: Alcohol withdrawal, dehydration, hyperkalemia 36-year-old white male patient with known history of alcohol dependence, EtOH abuse, nicotine dependence, seizure disorder, hypertension, his history of pneumothorax, depression, marijuana use, who came into the emergency department per EMS on 08/20/2021 at 11:00 this morning when he called the ambulance after he had fallen in the bathroom last night. Patient was confused, he possibly had a seizure. He admits that he had been off his seizure medication. He is on Keppra 500 mg twice daily, does not follow with the neurologist. His last drink was last night, he does admit to heavy alcohol consumption. His had nausea and vomiting, but no abdominal pain, no fever. Most of the history was obtained fro m his mother was at the bedside currently, and his chart. She states patient has had a long history of drinking, he had been at [facility] 3 times this past summer, history of legal problems related to drunk driving. She states she drinks about 2 pints of whiskey on the regular bases that she knows off. She denies any other illicit drug use. Patient had been living in a motel, he had called his mother this morning to make sure that she knew she was in the hospital. CT of the head and cervical spine showed no acute fracture or dislocation in the cervical spine, no acute intracranial hemorrhage or midline shift. His lab work showed evidence of multiple electrolyte disturbances, and anion gap metabolic acidosis. His anion gap was 30 on admission, CO2 was 7, potassium was 5.8 and subsequently increased to 6.5, his glucose was 194, plasma lactic acid was 4.7, his LFTs were within normal limits, total bilirubin was 1.9, his a urinalysis showed 2+ protein, 4+ ketones, large amount of blood, no clear evidence of infection, urine drug screen was positive for benzodiazepines and marijuana, serum alcohol level was less than 10, serum acetone was positive, COVID-19 PCR was negative. His white blood cell count was 19.3, hemoglobin was 17.7 with a hematocrit of 54, neutrophil, was 18, lymphocyte count was 0.4. Venous blood gas showed pH of 7.16, pCO2 of 33 and bicarb concentration of 11. His INR was 1.0, and PT was 10.5. His elevated serum potassium was treated with 50% dextrose, insulin, and calcium gluconate, his most recent potassium is 6.0. She was given 2 L in IV fluid boluses, he was given thiamine injection in the ER, he was started on Ativan per CIWA protocol, and restarted on his Keppra, and started on diazepam. He is confused, he opens eyes to voice, but does not stay awake, his current CIWA scale is 18, he is mildly diaphoretic, he does admit to mild headache. he will be admitted to intensive care for close monitoring, he is a seizure precautions. Follow-up labs are pending for 1800 this evening. He is tachycardic on a monitor but in sinus mechanism, he is currently on D5 0.9 at a rate of 100 ML per hour. His lactic acid did improve and came down to 1.9 after initial fluid resuscitation. On today's evaluation on 08/21/2021 patient seen in follow-up in the intensive care unit, he is still somnolent, but easily arousable, he is responding appropriately with short yes or no questions, denies any acute distress. Breathing comfortably. Remains pulse ox is 95%, afebrile, hemodynamically stable, he remains on D5 0.9 normal saline at a rate of 100 ML per hour. His current CIWA scale is 15, no diaphoresis, denies headaches, is on CIWA scale. no complaints of chest discomfort no cough no wheezing. Today's labs have been reviewed showing white blood cell count 12.1, improved from yesterday's value, hemoglobin is 15, hematocrit is 42.5, sodium is 135, potassium is 4.0, chloride is 107, CO2 is 18, anion gap has closed and is down to 10, BUN is 9, creatinine 0.72. He denied patient had episode of urinary incontinence, this morning he did void, and the urine appears to be grossly bloody. He states he had previous episode of hematuria in the past. Platelet count is down to 90. Dynamically stable, less tachycardic, in sinus mechanism. Calcium is 10.7 on today's labs. The patient is seen today 08/22/2021 in follow-up on the regular medical floor. He is currently sitting up in bed. Awake and alert in no acute distress. Maintaining good O2 saturation the high 90s on room air. He's been afebrile. Hemodynamically stable. He is having ongoing issues with nausea and vomiting. White count 7.6. Hemoglobin 14.4. Platelet count 67,000. Magnesium 1.9. No seizure activity. He remains on IV Keppra, CIWA protocol, Zofran Objective - Vital Signs Vital signs: Vital Signs Temp 98.2 F 08/22/21 03:31 Pulse 71 08/22/21 09:23 Resp 18 08/22/21 03:31 BP 154/92 08/22/21 09:23 Pulse Ox 99 08/22/21 03:31 Intake & Output 08/21/21 08/22/21 08/22/21 18:59 06:59 18:59 Intake Total 520 1400 Output Total 225 1000 Balance 295 400 Weight 79.5 kg Intake: IV 400 Dextrose 5%-0.9% NaCl 1, 400 000 ml @ 100 mls/hr IV . Q10H JANE Rx#:[id number] Intake, IV Titration 900 Amount Dextrose 5%-0.9% NaCl 1, 900 000 ml @ 100 mls/hr IV . Q10H JANE Rx#:[id number] Oral 120 500 Output: Urine 225 1000 Other: Voiding Method Urinal Toilet Incontinent Urinal # Voids 1 # Bowel Movements 1 - Exam GENERAL EXAM: Awake, alert, 36-year-old male patient, on room air with a pulse ox of 99%, comfortable in no apparent distress. HEAD: Normocephalic/atraumatic. EYES: Normal reaction of pupils, equal size. Conjunctiva pink, sclera white. NOSE: Clear with pink turbinates. THROAT: No erythema or exudates. NECK: No masses, no JVD, no thyroid enlargement, no adenopathy. CHEST: No chest wall deformity. Symmetrical expansion. LUNGS: Equal air entry with no crackles, wheeze, rhonchi or dullness. CVS: Regular rate and rhythm, normal S1 and S2, no gallops, no murmurs, no rubs ABDOMEN: Soft, nontender. No hepatosplenomegaly, normal bowel sounds, no guarding or rigidity. EXTREMITIES: No clubbing, no edema, no cyanosis, 2+ pulses and upper and lower extremities. MUSCULOSKELETAL: Muscle strength and tone normal. SPINE: No scoliosis or deformity SKIN: No rashes CENTRAL NERVOUS SYSTEM: Alert, oriented 3. No focal deficits, tone is normal in all 4 extremities. - Labs CBC & Chem 7: 08/22/21 06:18 08/21/21 05:05 Labs: Abnormal Lab Results - Last 24 Hours (Table) 08/21/21 08/22/21 Range/Units 18:35 06:18 RBC 4.24 L 4.10 L (4.30-5.90) m/uL MCV 101.6 H 101.5 H (80.0-100.0) fL MCH 35.2 H (25.0-35.0) pg RDW 16.3 H (11.5-15.5) % Plt Count 74 L 67 L (150-450) k/uL Neutrophils # 9.0 H (1.3-7.7) k/uL Lymphocytes # 0.7 L 0.7 L (1.0-4.8) k/uL Assessment and Plan Assessment: 1 Acute alcohol withdrawal, delirium tremens, on CIWA protocol 2 Dehydration, and electrolyte derangement, corrected 3 Anion gap metabolic acidosis, related to lactic acidosis, and possible starvation ketoacidosis, corrected, and anion gap is closed on today's labs, lactic acid is now within normal limits with the IV fluid resuscitation 4 Lactic acidosis, resolved with IV hydration 5 Hyperkalemia, resolved 6 History of seizure disorder, on Keppra for maintenance medication, noncompliant with medication 7 Patient is a current smoker 8 Marijuana use 9 Possible underlying depression 10 Previous history of pneumothorax, the details are not available to us 11 Long history of EtOH abuse, with history of rehab at [place] and subsequent relapse 12 Thrombocytopenia related to chronic alcoholism 13 Hematuria, likely related to thrombocytopenia Plan: The patient was seen and evaluated by Dr. Candice Doty from the pulmonary and critical care standpoint We will see the patient as needed I, the cosigning physician, performed a history & physical examination of the patient. Lungs sounds are clear. Maintaining good O2 saturations in the 90s on room air. I discussed the assessment and plan of care with my nurse practitioner, More Burdick. I attest to the above note as dictated by her.
--- NOTE | 2021-08-22 13:09 | P.PN ---
Progress Note - Text Progress Note Date: 08/22/21 Interval History: Patient was seen today for psychiatric follow-up regarding patient's depression and alcohol abuse/withdrawal. Patient's nurse states that patient has been having elevated blood pressures and had his clonidine stopped earlier. Patient was seen in the room speaking on the phone and was agreeable to speak to fha underwriter. He states that today he is feeling depressed at times and is feeling anxious. He spoke significantly about his withdrawals feeling "shaky" and also claimed that he was vomiting and had dark red urine. He states that he still feeling depressed at this time and also is experiencing anxiety. He claims that he wants to get better for his kids and was future oriented. He was appearing to be fairly concerned about his health..At this time patient denies any suicidal or homical ideations, intent or plan. Patient denies any current auditory, visual hallucinations and denies any paranoia or delusions. However patient did state that he does see "lines" which don't appear to exist. Patient denies any side effects from the medications and has been compliant with meds. Mental Status Exam: General Appearance: Patient appears to be thin, stated age is alert, directable, and attempts to be cooperative. Dressed in a hospital gown. Behavior: Patient is calmly seated without any agitated behavior. Mild Tremors. Speech: Patient's speech is fluent and nonpressured. Soft tone Mood/Affect: Mood is depressed and anxious, affect is congruent and constricted. Suicidality/Homicidality: Patient denies having any suicidal or homicidal ideation intent or plan. Perceptions: Patient denies any visual hallucinations and denies any auditory hallucinations Though content/process: There is no evidence of any delusional thought content and thought process is linear and goal-directed. Memory and concentration: AOX3, grossly intact for the purposes of this session Judgment and insight: Improving mildly Assessment Major depressive disorder, mild Alcohol use disorder, currently in withdrawal Plan: -At this time patient DOES NOT meet criteria for inpatient psychiatric admission. -Would recommend the following medication changes/additions: Start Prozac 20 mg daily for mood/anxiety. Valium 5 mg twice a day scheduled for alcohol withdrawal and can be tapered tapered. -CIWA protocol with PRN Ativan for alcohol withdrawal. Continue to monitor vital signs. -break off worker to provide patient with outpatient mental health/psychiatry resources for appropriate follow up upon discharge -Anatomy And Physiology Instructor spoke with patient about substance abuse and the harmful effects on medical and mental health, patient verbally understood and agreed. -break off worker to provide patient substance use treatment resources including AA/NA meetings in the community. -break off worker to provide patient with access line number to call for inpatient substance rehab -Communicated plan to patient's nurse -Will continue to follow along -Please contact with any questions.
[2021-08-22] MEDS: diazePAM 5 MG TAB PO SCH ×2 (13:10→20:35)
--- NOTE | 2021-08-22 13:15 | P.PN ---
Subjective Patient is doing well today. He had an episode of urethral bleeds last night of unclear reason. He denies any trauma or recent procedures/instrumentation. Objective - Vital Signs Vital signs: Vital Signs Temp 98.9 F 08/22/21 12:31 Pulse 78 08/22/21 12:31 Resp 18 08/22/21 12:31 BP 135/90 08/22/21 12:31 Pulse Ox 99 08/22/21 12:31 Intake & Output 08/21/21 08/22/21 08/22/21 18:59 06:59 18:59 Intake Total 520 1400 Output Total 225 1000 Balance 295 400 Weight 79.5 kg Intake: IV 400 Dextrose 5%-0.9% NaCl 1, 400 000 ml @ 100 mls/hr IV . Q10H JANE Rx#:[id number] Intake, IV Titration 900 Amount Dextrose 5%-0.9% NaCl 1, 900 000 ml @ 100 mls/hr IV . Q10H JANE Rx#:[id number] Oral 120 500 Output: Urine 225 1000 Other: Voiding Method Urinal Toilet Toilet Incontinent Urinal Urinal # Voids 1 # Bowel Movements 1 - Exam General: The patient is awake and alert, in no distress Eye: there is normal conjunctiva bilaterally. Neck: The neck is supple, there is no JVD. Cardiovascular: Normal S1-S2, no S3-S4, no murmurs. Respiratory: Lungs clear to auscultation bilaterally Gastrointestinal: Abdomen is soft, nontender Musculoskeletal: There is no pedal edema. Neurological:. Speech is normal. Skin: Skin is warm and dry - Labs CBC & Chem 7: 08/22/21 06:18 08/21/21 05:05 Labs: Abnormal Lab Results - Last 24 Hours (Table) 08/21/21 08/22/21 Range/Units 18:35 06:18 RBC 4.24 L 4.10 L (4.30-5.90) m/uL MCV 101.6 H 101.5 H (80.0-100.0) fL MCH 35.2 H (25.0-35.0) pg RDW 16.3 H (11.5-15.5) % Plt Count 74 L 67 L (150-450) k/uL Neutrophils # 9.0 H (1.3-7.7) k/uL Lymphocytes # 0.7 L 0.7 L (1.0-4.8) k/uL Assessment and Plan Assessment: 1. Heavy alcohol abuse with impending DT/alcohol withdrawal 2. Severe metabolic acidosis secondary to above/starvation ketosis, improved 3. Hyperkalemia, treated medically 4. Nausea and vomiting with suspected alcoholic gastritis 5. History of seizure disorder 6. Suspected underlying depression 7. Essential hypertension 8. Marijuana abuse 9. Episode of urethral bleed, exact etiology unclear. In the globe and stable. Seen and evaluated by urology. If recurrent may consider cystoscopy. Ultrasound showed questionable right nephrolithiasis Today, I reviewed his medication list and lab work results. I would add creatinine kinase Computed tomography scan of the head and cervical spine with no acute findings Discontinue IV fluid and encourage oral hydration I consulted social work and psychiatry to help manage his depression and alcohol abuse Symptomatic management for nausea with IV Zofran Resume home dose of Keppra Counseled extensively regarding alcohol cessation Awaiting psychiatry evaluation. Discharge planning tomorrow.
[2021-08-22] MEDS: FLUoxetine HCL 20 MG CAP PO SCH (14:41)
[2021-08-22] MEDS: FOLIC ACID 1 MG TAB PO SCH (14:41)
[2021-08-22] MEDS: levETIRAcetam 500 MG TAB PO SCH (20:35)
[2021-08-22 21:39] VITALS: RESP 16
[2021-08-23 06:16] LABS: Basophils % (A) 0 %; Eosinophils % (A) 0 %; HCT 42.1 % (39.0-53.0); HGB 14.2 gm/dL (13.0-17.5); Lymphocytes # (A) 0.9 k/uL (1.0-4.8); Lymphocytes % (A) 12 %; MCH 34.3 pg (25.0-35.0); MCHC 33.8 g/dL (31.0-37.0); MCV 101.5 fL (80.0-100.0); Macrocytosis Slight; Mean Platelet Volume 9.8; Monocytes # (A) 0.3 k/uL (0-1.0); Monocytes % (A) 4 %; Neutrophils # (A) 6.2 k/uL (1.3-7.7); Neutrophils % (A) 82 %; RBC 4.15 m/uL (4.30-5.90); RDW 15.4 % (11.5-15.5); WBC 7.6 k/uL (3.8-10.6)
[2021-08-23 06:18] LABS: Platelet Count 59 k/uL (150-450)
[2021-08-23 06:43] LABS: African American GFR (CKD) >90 (>60 ml/min/1.73 sqM); Anion Gap 8 mmol/L; Blood Urea Nitrogen 5 mg/dL (9-20); Calcium 9.8 mg/dL (8.4-10.2); Carbon Dioxide 25 mmol/L (22-30); Chloride 102 mmol/L (98-107); Glucose 101 mg/dL (74-99); Non-African American GFR(CKD) >90 (>60 ml/min/1.73 sqM); Potassium 2.9 mmol/L (3.5-5.1); Sodium 135 mmol/L (137-145)
[2021-08-23] MEDS ORDERED: PANTOPRAZOLE 40 MG TABLET PO SCH (07:30)
[2021-08-23] MEDS ORDERED: POTASSIUM CHLORIDE 20 MEQ in WATER FOR INJECTION 1 100ML.BAG IVPB STA (08:09)
[2021-08-23] MEDS ORDERED: POTASSIUM CHLORIDE ER 20 MEQ TAB.ER PO STA (08:09)
[2021-08-23] MEDS: THIAMINE 100 MG TAB PO SCH (09:23)
[2021-08-23] MEDS: levETIRAcetam 500 MG TAB PO SCH (09:23)
[2021-08-23] MEDS: FLUoxetine HCL 20 MG CAP PO SCH (09:23)
[2021-08-23] MEDS: FOLIC ACID 1 MG TAB PO SCH (09:23)
[2021-08-23] MEDS: MULTIVITAMINS, THERA 1 EACH TAB PO SCH (09:24)
[2021-08-23] MEDS: diazePAM 5 MG TAB PO SCH (09:24)
[2021-08-23] MEDS: amLODIPine 5 MG TAB PO SCH (09:24)
[2021-08-23] MEDS: PANTOPRAZOLE 40 MG/10 ML VIAL IVP SCH (09:24)
--- NOTE | 2021-08-23 11:33 | P.DS ---
Providers Date of admission: 08/20/21 14:57 Expected date of discharge: 08/23/21 Attending physician: Sarah Wahl Consults: 08/20/21 15:29 Consult Physician Routine Consulting Provider: Shaan Watson Consult Reason/Comments: Depression Do you want consulting provider notified?: Yes 08/21/21 11:03 Consult Physician Routine Consulting Provider: Lencho Givens Consult Reason/Comments: Hematuria Do you want consulting provider notified?: Yes Primary care physician: Stated None Hospital Course: This is a 36-year-old male complex past medical history noted below significant for heavy alcohol abuse presented to the emergency room after he passed out the wrong on the bathroom floor. He was evaluated in the ER and admitted to the hospital for further management of his medical problems noted below. 1. Heavy alcohol abuse with impending DT/alcohol withdrawal 2. Severe metabolic acidosis secondary to above/starvation ketosis, improved 3. Hyperkalemia, treated medically 4. Nausea and vomiting with suspected alcoholic gastritis 5. History of seizure disorder, counseled regarding compliance with Keppra 6. Suspected underlying depression 7. Essential hypertension 8. Marijuana abuse 9. Episode of urethral bleed, now resolved. exact etiology unclear. Hemoglobin stable. Seen and evaluated by urology. If recurrent may consider cystoscopy. Ultrasound showed questionable right nephrolithiasis Patient was treated aggressively with IV fluid hydration and IV Ativan as needed for withdrawal symptoms. He was seen and evaluated by psychiatry and social wo rk. He was started on Prozac 20 mg daily. rack worker will provided necessary information for follow-up with [facility]. His overall condition improved significantly. On the day of discharge he was able to tolerate oral diet with no difficulty. He was able to get up and ambulate in the room with no difficulty either. He will be discharged home with his mother in a stable condition. Physical exam: General: The patient is awake and alert, in no distress Eye: there is normal conjunctiva bilaterally. Neck: The neck is supple, there is no JVD. Cardiovascular: Normal S1-S2, no S3-S4, no murmurs. Respiratory: Lungs clear to auscultation bilaterally Gastrointestinal: Abdomen is soft, nontender Musculoskeletal: There is no pedal edema. Neurological:. Speech is normal. Skin: Skin is warm and dry Patient Condition at Discharge: Serious Plan - Discharge Summary Discharge Rx Participant: Yes New Discharge Prescriptions: New Folic Acid 1 mg PO DAILY #30 tab amLODIPine [Norvasc] 10 mg PO DAILY #30 tablet diazePAM [Valium] 5 mg PO BID PRN #6 tab PRN Reason: Anxiety Thiamine [Vitamin B-1] 100 mg PO BID-W/MEALS #14 tab FLUoxetine HCL [PROzac] 20 mg PO DAILY #30 cap Continue levETIRAcetam [Keppra] 500 mg PO BID #60 tab Multivitamins, Thera [Multivitamin (formulary)] 1 tab PO DAILY Discontinued amLODIPine [Norvasc] 5 mg PO DAILY #30 tab Thiamine [Vitamin B-1] 100 mg PO BID-W/MEALS #60 tab Discharge Medication List levETIRAcetam [Keppra] 500 mg PO BID #60 tab 02/19/21 [Rx] Multivitamins, Thera [Multivitamin (formulary)] 1 tab PO DAILY 07/15/21 [Histor y] FLUoxetine HCL [PROzac] 20 mg PO DAILY #30 cap 08/23/21 [Rx] Folic Acid 1 mg PO DAILY #30 tab 08/23/21 [Rx] Thiamine [Vitamin B-1] 100 mg PO BID-W/MEALS #14 tab 08/23/21 [Rx] amLODIPine [Norvasc] 10 mg PO DAILY #30 tablet 08/23/21 [Rx] diazePAM [Valium] 5 mg PO BID PRN #6 tab 08/23/21 [Rx] Follow up Appointment(s)/Referral(s): None,Stated [Primary Care Provider] - 1-2 days [facility] [NON-STAFF] - 1-2 Days Discharge/Stand Alone Forms: AA Meetings [facility]
[2021-08-23 11:42] LABS: African American GFR (CKD) 135.3 (60.0-200.0); Anion Gap 19.1 mmol/L (4.00-12.00); BUN/Creat Ratio 8.58 Ratio (12.00-20.00); Blood Urea Nitrogen 6.4 mg/dL (9.0-27.0); Calcium 9.4 mg/dL (8.7-10.3); Non-African American GFR(CKD) 116.8 (60.0-200.0); Potassium 3.2 mmol/L (3.5-5.5)
--- NOTE | 2021-08-23 12:40 | P.PN ---
Progress Note - Text Progress Note Date: 08/23/21 Interval History: Patient was seen today for psychiatric follow-up regarding patient's depression and alcohol abuse/withdrawal. Patient appears to have improvement in his vital signs. He has been taking his Prozac and Valium and also when necessary Ativan for withdrawals. He claims that he is doing much better today in terms of his anxiety and also his mood. He is much more future oriented speaking about his child and also getting into [facility]. He claims that he made the call yesterday for an intake appointment and is waiting to hear back from them. He states that he'll be staying with his mother upon discharge. He claims that he needs to stop drinking alcohol for his health and also his child. He claims that he is not feeling suicidal today and states that he slept well and was able to tolerate his breakfast fairly well. .At this time patient denies any suicidal or homical ideations, intent or plan. Patient denies any current auditory, visual hallucinations and denies any paranoia or delusions. Patient denies any side effects from the medications and has been compliant with meds. Mental Status Exam: General Appearance: Patient appears to be thin, stated age is alert, directable, and attempts to be cooperative. Dressed in a hospital gown. Behavior: Patient is calmly seated without any agitated behavior. Speech: Patient's speech is fluent and nonpressured. Mood/Affect: Mood is improving, affect is congruent and appears to be brighter Suicidality/Homicidality: Patient denies having any suicidal or homicidal ideation intent or plan. Perceptions: Patient denies any visual hallucinations and denies any auditory hallucinations Though content/process: There is no evidence of any delusional thought content and thought process is linear and goal-directed. more Future oriented Memory and concentration: AOX3, grossly intact for the purposes of this session Judgment and insight: Improving mildly Assessment Major depressive disorder, mild Alcohol use disorder, currently in withdrawal Plan: -At this time patient DOES NOT meet criteria for inpatient psychiatric admission. -Would recommend the following medication changes/additions: Continue with Prozac 20 mg daily for mood/anxiety. Valium 5 mg twice a day scheduled for alcohol withdrawal and can be tapered off within the next 1-2 days. -CIWA protocol with PRN Ativan for alcohol withdrawal. Continue to monitor vital signs. -fuller brush worker to provide patient with outpatient mental health/psychiatry resources for appropriate follow up upon discharge -Traffic Signal Supervisor Maintenance spoke with patient about substance abuse and the harmful effects on medical and mental health, patient verbally understood and agreed. -She apparently has made a call to the access number for [facility] and is waiting to hear back for an intake date next week. -Communicated plan to patient's nurse -At this time psychiatry will sign off. -Please contact with any questions.
[2021-08-23 13:20] VITALS: BP 142/93; PULSE 74; TEMP 98.8
== END 2021-08-23 17:56 | disposition home or self-care (01) | DRG 897 ==
LOC: EC 11:06 → 2SICU 14:57 → 5NMEDONC 08-21 11:12
PROVIDERS: ADMIT Internal Medicine; ATTEND Internal Medicine
DX: F10.231 Alcohol dependence with withdrawal delirium (principal); E87.2 Acidosis; S09.90XA Unspecified injury of head, initial encounter; D69.59 Other secondary thrombocytopenia; G40.909 Epilepsy, unspecified, not intractable, without status epilepticus; Z20.822 Contact with and (suspected) exposure to COVID-19; T42.6X6A Underdosing of other antiepileptic and sedative-hypnotic drugs, initial encounter; Z91.128 Patient's intentional underdosing of medication regimen for other reason; Y90.0 Blood alcohol level of less than 20 mg/100 ml; E87.5 Hyperkalemia; F41.9 Anxiety disorder, unspecified; F32.9 Major depressive disorder, single episode, unspecified; K29.20 Alcoholic gastritis without bleeding; E86.0 Dehydration; I10 Essential (primary) hypertension; D72.829 Elevated white blood cell count, unspecified; R31.0 Gross hematuria; N36.8 Other specified disorders of urethra; N20.0 Calculus of kidney; F12.10 Cannabis abuse, uncomplicated; F17.210 Nicotine dependence, cigarettes, uncomplicated; Z71.6 Tobacco abuse counseling; Z79.899 Other long term (current) drug therapy; Z87.09 Personal history of other diseases of the respiratory system; Z87.39 Personal history of other diseases of the musculoskeletal system and connective tissue; Z98.890 Other specified postprocedural states; Z59.0 Homelessness; Z65.3 Problems related to other legal circumstances; Z71.41 Alcohol abuse counseling and surveillance of alcoholic; Z71.51 Drug abuse counseling and surveillance of drug abuser; Y63.6 Underdosing and nonadministration of necessary drug, medicament or biological substance; W19.XXXA Unspecified fall, initial encounter; Y92.59 Other trade areas as the place of occurrence of the external cause; Z82.49 Family history of ischemic heart disease and other diseases of the circulatory system
CPT/HCPCS: 36415; 70450; 72125; 76770; 80048; 80053; 80306; 80320; 81001; 82009; 82550; 82803; 83605; 83735; 84132; 85025; 85610; 85730; 87635; 93005; 96361; 96372; 96374; 96375; 99291

== ENCOUNTER 2022-10-01 09:52 | Emergency (ER) | payer OTHER ==
[2022-10-01 10:10] VITALS: RESP 18; TEMP 98.4
--- NOTE | 2022-10-01 10:19 | ED ---
General Adult HPI - General Chief complaint: Seizure Stated complaint: Seizure Time Seen by Provider: 10/01/22 10:00 Source: EMS Mode of arrival: EMS Limitations: altered mental status - History of Present Illness Initial comments: Dictation was produced using [employer] dictation software. please excuse any grammatical, word or spelling errors. Chief Complaint: 37-year-old male presents emergency department for seizure History of Present Illness: 37-year-old male presents emergency department for seizure. Patient has had a seizure before. Suspect that patient had alcohol related seizures last time he was admitted to the hospital. This was last year in June. Patient was at work. He remembers waking up feeling in his nor mal usual state of health. 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 He does not remember anything until waking up in the ambulance. According to EMS there was suspected that patient had a seizure that lasted for approximately 1 minute followed by postictal period. Mother is at the bedside states that patient had alcohol-related seizures last year was admitted to the intensive care unit. As any symptoms at this time. Patient reports that he quit drinking however. The ROS documented in this emergency department record has been reviewed and confirmed by me. Those systems with pertinent positive or negative responses have been documented in the HPI. All other systems are other negative and/or noncontributory. PHYSICAL EXAM: General Impression: Alert and oriented x3, not in acute distress HEENT: Normocephalic atraumatic, extra-ocular movements intact, pupils equal and reactive to light bilaterally, mucous membranes moist. Cardiovascular: Heart regular rate and rhythm Chest: Able to complete full sentences, no retractions, no tachypnea Abdomen: abdomen soft, non-tender, non-distended, no organomegaly Musculoskeletal: Pulses present and equal in all extremities, no peripheral edema Motor: no focal deficits noted Neurological: CN II-XII grossly intact, no focal motor or sensory deficits noted Skin: Intact with no visualized rashes Psych: Normal affect and mood ED course: 37-year-old male presents emergency Department after having had a seizure today. Vital signs upon arrival are within acceptable limits. Patient's well-appearing at the bedside. Physical examination is benign. Patient reports that he quit drinking however there is suspicion that he is being dishonest especially with mother at bedside. Nursing notes and chart review was performed My EKG interpretation: Ventricular rate 71, sinus rhythm,. 159, QRS 109, QTc 413. No [place] prolongation, no QTC prolongation, no ST or T-wave changes noted. EKG compared to 08/20/2021 showing no changes. Overall, this EKG is unremarkable Laboratory evaluation obtained. CBC, metabolic panel is unremarkable. Serum alcohol is negative. Patient observed in emergency department for 3 hours finally stable medical condition. Reevaluated bedside at 1:00 PM found to be stable medical condition. Patient be discharged. He is given referral to primary care doctor for outpatient management of seizures. Patient does not recall what seizure medication he is supposed beyond hasn't taken it for months. Critical Care: no Critical Care time: n/a - Related Data Home Medications Medication Instructions Recorded Confirmed No Known Home Medications 10/01/22 10/01/22 Allergies Allergy/AdvReac Type Severity Reaction Status Date / Time No Known Allergies Allergy Verified 10/01/22 11:43 Review of Systems ROS Statement: Those systems with pertinent positive or pertinent negative responses have been documented in the HPI. ROS Other: All systems not noted in ROS Statement are negative. Past Medical History Past Medical History: Seizure Disorder Additional Past Medical History / Comment(s): PNEUMOTHORAX History of Any Multi-Drug Resistant Organisms: None Reported Past Surgical History: No Surgical Hx Reported Additional Past Surgical History / Comment(s): LEFT ARM SURGERY, Past Anesthesia/Blood Transfusion Reactions: No Reported Reaction Past Psychological History: Anxiety, Depression Smoking Status: Current every day smoker Past Alcohol Use History: Daily Past Drug Use History: Marijuana - Past Family History Father Family Medical History: Unable to Obtain Mother Family Medical History: Coronary Artery Disease (CAD) General Exam Limitations: altered mental status Course Vital Signs 10/01/22 10:03 Temperature 98.4 F Pulse Rate 78 Respiratory 18 Rate Blood Pressure 149/92 O2 Sat by Pulse 97 Oximetry Medical Decision Making - Lab Data Result diagrams: 10/01/22 10:34 10/01/22 10:34 Lab Results 10/01/22 10/01/22 Range/Units 10:34 10:34 WBC 5.0 (3.8-10.6) k/uL RBC 4.44 (4.30-5.90) m/uL Hgb 15.0 (13.0-17.5) gm/dL Hct 42.7 (39.0-53.0) % MCV 96.3 (80.0-100.0) fL MCH 33.7 (25.0-35.0) pg MCHC 35.0 (31.0-37.0) g/dL RDW 12.6 (11.5-15.5) % Plt Count 126 L (150-450) k/uL MPV 8.6 Neutrophils % 82 % Lymphocytes % 10 % Monocytes % 6 % Eosinophils % 0 % Basophils % 0 % Neutrophils # 4.2 (1.3-7.7) k/uL Lymphocytes # 0.5 L (1.0-4.8) k/uL Monocytes # 0.3 (0-1.0) k/uL Eosinophils # 0.0 (0-0.7) k/uL Basophils # 0.0 (0-0.2) k/uL Sodium 136 L (137-145) mmol/L Potassium 3.5 (3.5-5.1) mmol/L Chloride 99 (98-107) mmol/L Carbon Dioxide 28 (22-30) mmol/L Anion Gap 9 mmol/L BUN 9 (9-20) mg/dL Creatinine 0.68 (0.66-1.25) mg/dL Est GFR (CKD-EPI)AfAm >90 (>60 ml/min/1.73 sqM) Est GFR (CKD-EPI)NonAf >90 (>60 ml/min/1.73 sqM) Glucose 114 H (74-99) mg/dL Calcium 9.3 (8.4-10.2) mg/dL Total Bilirubin 2.5 H (0.2-1.3) mg/dL AST 69 H (17-59) U/L ALT 37 (4-49) U/L Alkaline Phosphatase 95 (38-126) U/L Total Protein 7.4 (6.3-8.2) g/dL Albumin 4.6 (3.5-5.0) g/dL Serum Alcohol <10 mg/dL Disposition Clinical Impression: Seizure Disposition: HOME SELF-CARE Condition: Fair Instructions (If sedation given, give patient instructions): Recurrent Seizures in Adults (ED) Additional Instructions: no driving or operating heavy machinery Is patient prescribed a controlled substance at d/c from ED?: No Referrals: Kodak Fine MD [REFERRING] - 1-2 days Dona Osorio MD [STAFF PHYSICIAN] - 1-2 days Whateley,Kwan, MD [REFERRING] - 1-2 days
[2022-10-01 10:45] LABS: Basophils % (A) 0 %; Eosinophils % (A) 0 %; HCT 42.7 % (39.0-53.0); Lymphocytes # (A) 0.5 k/uL (1.0-4.8); Lymphocytes % (A) 10 %; MCH 33.7 pg (25.0-35.0); MCV 96.3 fL (80.0-100.0); Mean Platelet Volume 8.6; Monocytes # (A) 0.3 k/uL (0-1.0); Monocytes % (A) 6 %; Neutrophils # (A) 4.2 k/uL (1.3-7.7); Neutrophils % (A) 82 %; Platelet Count 126 k/uL (150-450); RBC 4.44 m/uL (4.30-5.90); RDW 12.6 % (11.5-15.5)
[2022-10-01 10:53] LABS: ALT 37 U/L (4-49); AST 69 U/L (17-59); African American GFR (CKD) >90 (>60 ml/min/1.73 sqM); Albumin 4.6 g/dL (3.5-5.0); Alcohol <10 mg/dL; Alkaline Phosphatase 95 U/L (38-126); Anion Gap 9 mmol/L; Blood Urea Nitrogen 9 mg/dL (9-20); Calcium 9.3 mg/dL (8.4-10.2); Carbon Dioxide 28 mmol/L (22-30); Chloride 99 mmol/L (98-107); Glucose 114 mg/dL (74-99); Non-African American GFR(CKD) >90 (>60 ml/min/1.73 sqM); Potassium 3.5 mmol/L (3.5-5.1); Sodium 136 mmol/L (137-145); Total Bilirubin 2.5 mg/dL (0.2-1.3); Total Protein 7.4 g/dL (6.3-8.2)
--- NOTE | 2022-10-01 11:14 | CT ---
EXAMINATION TYPE: CT brain cspine wo con CT DLP: 1413.7 mGycm, Automated exposure control for dose reduction was used. DATE OF EXAM: 10/01/2022 10:50 AM COMPARISON: 08/20/2021 CLINICAL INDICATION:Male, 37 years old with history of seizure, fall; Seizure TECHNIQUE: Brain: Multiple axial CT images of the brain were obtained without IV contrast. Cspine: Axial CT images from the skull base to the inferior aspect of T2 we obtained without intraven ous contrast. Coronal and sagittal reformatted images were also reviewed. FINDINGS: Brain: Extra-axial spaces: No abnormal extra-axial fluid collections. Ventricular system: Within normal limits Cerebral parenchyma: No acute intraparenchymal hemorrhage or mass effect. The amaya-white junction is well differentiated. Cerebellum: Unremarkable. Mass effect: No evidence of midline shift. Intracranial vasculature: unremarkable Soft tissues: Normal. Calvarium/osseous structures: No depressed skull fracture. Paranasal sinuses and mastoid air cells: Clear. Visualized orbits: Orbital contents are intact. Cervical spine: Fracture: None. Osseous structures: Unremarkable Vertebral alignment: Within normal limits. Spinal canal/Neural Foramina: No evidence of significant spinal canal narrowing. No evidence for sign ificant neural foraminal stenosis. Neck soft tissues: Prevertebral soft tissues are within normal limits. Other: The airway is patent. Paraseptal emphysema changes are seen within the lung apices. Suture mat erial seen along the lung. IMPRESSION: 1. No acute intracranial process. 2. No evidence of cervical spine fracture. 3. Mild emphysema changes.
[2022-10-01 13:20] VITALS: BP 132/71; PULSE 71
== END 2022-10-01 13:20 | disposition home or self-care (01) ==
LOC: EC 09:52
DX: R56.9 Unspecified convulsions (principal); F41.9 Anxiety disorder, unspecified; F32.A Depression, unspecified; F17.200 Nicotine dependence, unspecified, uncomplicated; F12.90 Cannabis use, unspecified, uncomplicated
CPT/HCPCS: 36415; 93005; 80053; 85025; 72125; 70450; 99285; G0480; 80320

== ENCOUNTER 2023-02-06 03:11 | Emergency (ER) | payer OTHER ==
[2023-02-06 03:20] VITALS: BP 136/85; PULSE 112; RESP 18; TEMP 98.2
[2023-02-06] MEDS ORDERED: CEPHALEXIN 500 MG CAP PO STA (04:00)
--- NOTE | 2023-02-06 04:02 | ED ---
General Adult HPI - General Chief complaint: Extremity Injury, Lower Stated complaint: Left Ankle Injury Time Seen by Provider: 02/06/23 03:26 Source: patient Mode of arrival: ambulatory Limitations: no limitations - History of Present Illness Initial comments: This is a 37-year-old male with a past medical history including chronic alcoholism presents emergency department for swelling and trauma to the posterior aspect of his left leg. The patient stated that he was at work when a plastic pallet did fall and hit the backside of his left lower leg. The patient stated this happened approximately 2 weeks ago. The patient had swelling to the posterior aspect of the left lower leg and a continued swelling. The patient then noted that the top of his foot became black and blue as well as different colored skin around the area. The patient did however report that the swelling has significantly decreased since the incident. The patient was ambulatory on his lower extremities as he does have a car and has not had any issues or pain with ambulating. The patient denied any other acute pain or complaints at this time. - Related Data Previous Rx's Medication Instructions Recorded Cephalexin [Keflex] 500 mg PO Q6HR 1 Days #20 cap 02/06/23 Allergies Allergy/AdvReac Type Severity Reaction Status Date / Time No Known Allergies Allergy Verified 02/06/23 03:17 Review of Systems ROS Statement: Those systems with pertinent positive or pertinent negative responses have been documented in the HPI. ROS Other: All systems not noted in ROS Statement are negative. Past Medical History Past Medical History: Seizure Disorder Additional Past Medical History / Comment(s): PNEUMOTHORAX History of Any Multi-Drug Resistant Organisms: None Reported Past Surgical History: No Surgical Hx Reported Additional Past Surgical History / Comment(s): LEFT ARM SURGERY, Past Anesthesia/Blood Transfusion Reactions: No Reported Reaction Past Psychological History: Anxiety, Depression Smoking Status: Current every day smoker Past Alcohol Use History: Daily Past Drug Use History: Marijuana - Past Family History Father Family Medical History: Unable to Obtain Mother Family Medical History: Coronary Artery Disease (CAD) General Exam Limitations: no limitations General appearance: alert, in no apparent distress Head exam: Present: atraumatic, normocephalic, normal inspection Eye exam: Present: normal appearance, PERRL Pupils: Present: normal accommodation ENT exam: Present: normal exam, normal oropharynx, mucous membranes moist Neck exam: Present: normal inspection, full ROM Respiratory exam: Present: normal lung sounds bilaterally Cardiovascular Exam: Present: regular rate, normal rhythm, normal heart sounds GI/Abdominal exam: Present: soft, normal bowel sounds Extremities exam: Present: full ROM, tenderness, other (Swelling noted to the posterior aspect of the left lower extremity above the Achilles tendon. Area was tender without any significant erythema. There was some mild erythema however. Various colored contusion at various stages of healing were noted throughout the lower extremity. FROM. ). Absent: pedal edema, joint swelling, calf tenderness Back exam: Present: normal inspection, full ROM Neurological exam: Present: alert, oriented X3, CN II-XII intact Psychiatric exam: Present: normal affect, normal mood Skin exam: Present: warm, dry Course Vital Signs 02/06/23 03:17 Temperature 98.2 F Pulse Rate 112 H Respiratory 18 Rate Blood Pressure 136/85 O2 Sat by Pulse 98 Oximetry Medical Decision Making - Medical Decision Making Was pt. sent in by a medical professional or institution (, [facility], MACHINE EGG WASHER, urgent care, hospital, or skilled nursing...) When possible be specific @ -No Did you speak to anyone other than the patient for history (EMS, parent, family, police, friend...)? What history was obtained from this source @ -No Did you review nursing and triage notes (agree or disagree)? Why? @ -I reviewed and agree with nursing and triage notes Were old charts reviewed (outside hosp., previous admission, EMS record, old EKG, old radiological studies, urgent care reports/EKG's, skilled nursing records)? Report findings @ -No old charts were reviewed Differential Diagnosis (chest pain, altered mental status, abdominal pain women, abdominal pain men, vaginal bleeding, weakness, fever, dyspnea, syncope, headache, dizziness, GI bleed, back pain, seizure, CVA, palpatations, mental health)? @ -DVT, contusion, abrasion, cellulitis EKG interpreted by me (3pts min.). @ -None X-rays interpreted by me (1pt min.). @ -None done CT interpreted by me (1pt min.). @ -None done U/S interpreted by me (1pt. min.). @ -None done What testing was considered but not performed or refused? (CT, X-rays, U/S, labs)? Why? @ -In x-ray was considered however the patient suffered the injury 2 weeks ago and has been ambulatory on his lower extremities since. Therefore no further imaging was required at this time as there was unlikely any fractures. What meds were considered but not given or refused? Why? @ -None Did you discuss the management of the patient with other professionals (professionals i.e. , PA, MACHINE EGG WASHER, lab, RT, psych nurse, social work professor, spd manager, teacher, air [employer] senior officer, pillowcase maker)? Give summary @ -No Was smoking cessation discussed for >3mins.? @ -Yes Was critical care preformed (if so, how long)? @ -No Were there social determinants of health that impacted care today? How? (Homelessness, low income, unemployed, alcoholism, drug addiction, transportation, low edu. Level, literacy, decrease access to med. care, fci, rehab)? @ -No Was there de-escalation of care discussed even if they declined (Discuss DNR or withdrawal of care, Hospice)? DNR status @ -No What co-morbidities impacted this encounter? (DM, HTN, Smoking, COPD, CAD, Cancer, CVA, ARF, Chemo, Hep., AIDS, mental health diagnosis, sleep apnea, morbid obesity)? @ -Chronic alcoholism Was patient admitted / discharged? Hospital course, mention meds given and route, prescriptions, significant lab abnormalities, going to OR and other pertinent info. @ -The patient was seen and evaluated in the emergency department. Physical exam, the patient was resting in bed without any acute distress. Vital signs admission were stable. On physical exam, the patient had a contusion on the left lower leg at various stages of healing. There was also swelling noted to the posterior aspect of the left lower extremity measuring approximately 4 cm x 2cm. I performed a bedside ultrasound that showed loculated areas likely consistent with hematoma. The patient had some mild cellulitis noted on the superficial aspect therefore was given a dose of Keflex in the emergency department as well as a prescription for Keflex to be taken at home. The patient was advised to use an Hoang bandage as well as cold compresses to decrease the swelling. The patient was also advised to monitor symptoms and to report back to the emergency department for further workup and evaluation. The patient agreed to this plan and all of his questions were answered appropriately. The patient was discharged home in stable condition. Undiagnosed new problem with uncertain prognosis? @ -No Drug Therapy requiring intensive monitoring for toxicity (Heparin, Nitro, Insulin, Cardizem)? @ -No Were any procedures done? @ -No Diagnosis/symptom? @ -Left lower extremity hematoma and contusion Acute, or Chronic, or Acute on Chronic? @ -Chronic Uncomplicated (without systemic symptoms) or Complicated (systemic symptoms)? @ -Uncomplicated Side effects of treatment? @ -No Exacerbation, Progression, or Severe Exacerbation? @ -No Poses a threat to life or bodily function? How? (Chest pain, [place], [place], pneumonia, PE, COPD, DKA, ARF, appy, cholecystitis, CVA, Diverticulitis, Homicidal, Suicidal, threat to staff... and all critical care pts) @ -No Disposition Clinical Impression: Hematoma, Contusion, Cellulitis Disposition: HOME SELF-CARE Condition: Stable Instructions (If sedation given, give patient instructions): Cellulitis (ED), Foot Contusion (ED), Hematoma (ED) Prescriptions: Cephalexin [Keflex] 500 mg PO Q6HR 1 Days #20 cap Is patient prescribed a controlled substance at d/c from ED?: No Referrals: None,Stated [Primary Care Provider] - 1-2 days Time of Disposition: 03:45
== END 2023-02-06 04:12 | disposition home or self-care (01) ==
LOC: EC 03:11
DX: S90.02XA Contusion of left ankle, initial encounter (principal); F41.9 Anxiety disorder, unspecified; F32.A Depression, unspecified; F17.200 Nicotine dependence, unspecified, uncomplicated; F12.90 Cannabis use, unspecified, uncomplicated; W22.8XXA Striking against or struck by other objects, initial encounter; Y99.0 Civilian activity done for income or pay
CPT/HCPCS: 99283

== ENCOUNTER 2024-01-20 08:51 | Emergency (ER) | payer OTHER ==
--- NOTE | 2024-01-20 09:26 | ED ---
Upper Extremity HPI - General Chief Complaint: Extremity Injury, Upper Stated Complaint: Fall, R Shoulder Pain Time Seen by Provider: 01/20/24 09:24 Source: patient, RN notes reviewed Mode of arrival: ambulatory Limitations: no limitations - History of Present Illness Initial Comments: Patient is a 38-year-old male presented to the ER with chief complaint of right shoulder pain. Patient states he tripped walking down the stairs to his basement about 2 weeks ago. He reports his right arm went behind him. He reports since then he has been having decreased range of motion and pain over his right shoulder. He endorses mild paresthesias to right upper extremity. He has been taking [id number] ibuprofen without relief. He is also tried pain patches without relief. He states he is unable to abduct his shoulder due to pain. Denies head injury, loss of consciousness, or other injuries. - Related Data Previous Rx's Medication Instructions Recorded levETIRAcetam [Keppra] 500 mg PO Q12HR #60 tab 07/20/23 Allergies Allergy/AdvReac Type Severity Reaction Status Date / Time No Known Allergies Allergy Verified 01/20/24 08:59 Review of Systems ROS Statement: Those systems with pertinent positive or pertinent negative responses have been documented in the HPI. ROS Other: All systems not noted in ROS Statement are negative. Past Medical History Past Medical History: Seizure Disorder Additional Past Medical History / Comment(s): PNEUMOTHORAX History of Any Multi-Drug Resistant Organisms: None Reported Past Surgical History: No Surgical Hx Reported Additional Past Surgical History / Comment(s): LEFT ARM SURGERY, Past Anesthesia/Blood Transfusion Reactions: No Reported Reaction Past Psychological History: Anxiety, Depression Smoking Status: Current every day smoker Past Alcohol Use History: Daily Past Drug Use History: Marijuana - Past Family History Father Family Medical History: Unable to Obtain Mother Family Medical History: Coronary Artery Disease (CAD) General Exam Limitations: no limitations General appearance: alert, in no apparent distress Head exam: Present: atraumatic, normocephalic, normal inspection Eye exam: Present: normal appearance, PERRL, EOMI. Absent: scleral icterus, conjunctival injection, periorbital swelling Neck exam: Present: normal inspection. Absent: tenderness, meningismus, lymphadenopathy Respiratory exam: Present: normal lung sounds bilaterally. Absent: respiratory distress, wheezes, rales, rhonchi, stridor Cardiovascular Exam: Present: regular rate, normal rhythm, normal heart sounds. Absent: systolic murmur, diastolic murmur, rubs, gallop, clicks Extremities exam: Present: other (2+ right radial pulse. Sensation intact. Limited range of motion due to pain. No focal tenderness on exam) Course Vital Signs 01/20/24 01/20/24 08:57 10:37 Temperature 97.9 F 98 F Pulse Rate 85 69 Respiratory 16 18 Rate Blood Pressure 122/85 123/74 O2 Sat by Pulse 99 94 L Oximetry Medical Decision Making - Medical Decision Making Was pt. sent in by a medical professional or institution (, PA, SENIOR WEB APPLICATIONS DEVELOPER, urgent care, hospital, or assisted...) When possible be specific @ -No Did you speak to anyone other than the patient for history (EMS, parent, family, police, friend...)? What history was obtained from this source @ -No Did you review nursing and triage notes (agree or disagree)? Why? @ -I reviewed and agree with nursing and triage notes Were old charts reviewed (outside hosp., previous admission, EMS record, old EKG, old radiological studies, urgent care reports/EKG's, assisted records)? Report findings @ -No old charts were reviewed Differential Diagnosis (chest pain, altered mental status, abdominal pain women, abdominal pain men, vaginal bleeding, weakness, fever, dyspnea, syncope, headache, dizziness, GI bleed, back pain, seizure, CVA, palpatations, mental health, musculoskeletal)? @ -Differential Musculoskeletal: Muscular strain, contusion, ligament sprain, fracture, arthritis, septic arthritis, bursitis, cellulitis, muscle spasm, nerve compression, DVT, arterial occlusion, herpes zoster, electrolyte abnormality, tumor.... This is not meant to be in all inclusive list EKG interpreted by me (3pts min.). @ -None X-rays interpreted by me (1pt min.). @ -Right shoulder x-ray interpreted me negative for acute osseous process. CT interpreted by me (1pt min.). @ -None done U/S interpreted by me (1pt. min.). @ -None done What testing was considered but not performed or refused? (CT, X-rays, U/S, labs)? Why? @ -None What meds were considered but not given or refused? Why? @ -None Did you discuss the management of the patient with other professionals (professionals i.e. DrLiz, PA, SENIOR WEB APPLICATIONS DEVELOPER, lab, RT, psych nurse, long term care social worker, biomathematician, teacher, property and supply officer, wrapper caser)? Give summary @ -No Was smoking cessation discussed for >3mins.? @ -No Was critical care preformed (if so, how long)? @ -No Were there social determinants of health that impacted care today? How? (Homelessness, low income, unemployed, alcoholism, drug addiction, transportation, low edu. Level, literacy, decrease access to med. care, [facility], rehab)? @ -No Was there de-escalation of care discussed even if they declined (Discuss DNR or withdrawal of care, Hospice)? DNR status @ -No What co-morbidities impacted this encounter? (DM, HTN, Smoking, COPD, CAD, Cancer, CVA, ARF, Chemo, Hep., AIDS, mental health diagnosis, sleep apnea, morbid obesity)? @ -None Was patient admitted / discharged? Hospital course, mention meds given and ro arvin, prescriptions, significant lab abnormalities, going to OR and other pertinent info. @ -Discharge. Patient is a 38-year-old male presenting to the ER with chief plaint of right shoulder pain and injury. History and physical exam completed. Vitals stable. Patient in no signs of acute distress and nontoxic-appearing. Right upper extremity neurovascular intact. No focal tenderness on exam. X- rays obtained negative for acute process. Patient received by mouth ibuprofen for symptom control in the ER. Results discussed with patient, all questions answered. Patient placed in a sling. I advised [id number] Tylenol and Motrin for pain control. I also advised close follow-up with orthopedics. Referral given. Patient discharged stable condition with follow-up to PCP/orthopedics. Return parameters discussed. Patient expressed verbal understanding and agreement with care plan. Case discussed with ED attending, Dr. Reece. Undiagnosed new problem with uncertain prognosis? @ -No Drug Therapy requiring intensive monitoring for toxicity (Heparin, Nitro, Insulin, Cardizem)? @ -No Were any procedures done? @ -No Diagnosis/symptom? @ -Shoulder pain Acute, or Chronic, or Acute on Chronic? @ -Acute Uncomplicated (without systemic symptoms) or Complicated (systemic symptoms)? @ -Uncomplicated Side effects of treatment? @ -No Exacerbation, Progression, or Severe Exacerbation? @ -No Poses a threat to life or bodily function? How? (Chest pain, [place], [place], pneumonia, PE, COPD, DKA, ARF, appy, cholecystitis, CVA, Diverticulitis, Homicidal, Suicidal, threat to staff... and all critical care pts) @ -No - Radiology Data Radiology results: report reviewed, image reviewed Disposition Clinical Impression: Acute pain of right shoulder Disposition: HOME SELF-CARE Condition: Stable Instructions (If sedation given, give patient instructions): Shoulder Pain (ED) Additional Instructions: Continue taking [id number] Tylenol and Motrin for pain control. Follow-up with orthopedics. Return to the ER for any new or worsening concerns. Is patient prescribed a controlled substance at d/c from ED?: No Referrals: None,Stated [Primary Care Provider] - 1-2 days Magdalena Lira DO [Doctor of Osteopathic Medicine] - 1-2 days Time of Disposition: 10:00
[2024-01-20] MEDS: IBUPROFEN 600 MG TAB PO STA (09:39)
--- NOTE | 2024-01-20 09:45 | XR ---
EXAMINATION TYPE: XR shoulder complete RT DATE OF EXAM: 01/20/2024 COMPARISON: NONE HISTORY: Pain TECHNIQUE: Three views are submitted. FINDINGS: The osseous structures are intact. There is no acute fracture or dislocation. Downward sloping acrom ion. Correlate for impingement. IMPRESSION: 1. No acute fracture. If concern for rotator cuff injury consider follow-up MRI.
[2024-01-20 10:56] VITALS: BP 123/74; PULSE 69; RESP 18; TEMP 98
== END 2024-01-20 10:43 | disposition home or self-care (01) ==
LOC: EC 08:51
DX: M25.511 Pain in right shoulder (principal); F17.200 Nicotine dependence, unspecified, uncomplicated; F12.90 Cannabis use, unspecified, uncomplicated; W10.9XXA Fall (on) (from) unspecified stairs and steps, initial encounter
CPT/HCPCS: 99283

== ENCOUNTER 2024-02-05 11:55 | Emergency (ER) | payer OTHER ==
[2024-02-05 12:31] LABS: Basophils % (A) 0 %; Eosinophils # (A) 0.1 k/uL (0-0.7); Eosinophils % (A) 1 %; HCT 44.4 % (39.0-53.0); HGB 14.6 gm/dL (13.0-17.5); Lymphocytes # (A) 1.2 k/uL (1.0-4.8); Lymphocytes % (A) 16 %; MCH 30.5 pg (25.0-35.0); MCHC 32.9 g/dL (31.0-37.0); MCV 92.7 fL (80.0-100.0); Mean Platelet Volume 7.9; Monocytes # (A) 0.3 k/uL (0-1.0); Monocytes % (A) 4 %; Neutrophils # (A) 5.8 k/uL (1.3-7.7); Neutrophils % (A) 77 %; Platelet Count 217 k/uL (150-450); RBC 4.79 m/uL (4.30-5.90); RDW 12.4 % (11.5-15.5); WBC 7.5 k/uL (3.8-10.6)
[2024-02-05 12:40] LABS: ALT 22 U/L (4-49); AST 25 U/L (17-59); African American GFR (CKD) >90 (>60 ml/min/1.73 sqM); Albumin 3.4 g/dL (3.5-5.0); Alkaline Phosphatase 79 U/L (38-126); Anion Gap 1 mmol/L; Blood Urea Nitrogen 8 mg/dL (9-20); Calcium 8.9 mg/dL (8.4-10.2); Carbon Dioxide 27 mmol/L (22-30); Chloride 110 mmol/L (98-107); Glucose 96 mg/dL (74-99); Non-African American GFR(CKD) >90 (>60 ml/min/1.73 sqM); Potassium 4.3 mmol/L (3.5-5.1); Sodium 138 mmol/L (137-145); Total Bilirubin 0.8 mg/dL (0.2-1.3); Total Protein 5.7 g/dL (6.3-8.2)
[2024-02-05 12:49] LABS: NT-Pro-B-Type Natriuretic Pept 33 pg/mL
--- NOTE | 2024-02-05 13:31 | US ---
EXAMINATION TYPE: US venous doppler duplex LE RT DATE OF EXAM: 02/05/2024 1:20 PM COMPARISON: NONE CLINICAL INDICATION: Male, 38 years old with history of pain; SIDE PERFORMED: Right TECHNIQUE: The lower extremity deep venous system is examined utilizing real time linear array sonog teddy with graded compression, doppler sonography and color-flow sonography. VESSELS IMAGED: Common Femoral Vein Deep Femoral Vein Greater Saphenous Vein * Femoral Vein Popliteal Vein Small Saphenous Vein * Proximal Calf Veins (* superficial vessels) Right Leg: Negative for DVT Left Leg: NA IMPRESSION: 1. No diagnostic evidence of DVT.
--- NOTE | 2024-02-05 13:40 | ED ---
Extremity Problem HPI - General Chief complaint: Extremity Problem,Nontraumatic Stated complaint: R leg swelling Time Seen by Provider: 02/05/24 12:05 Source: patient, RN notes reviewed Mode of arrival: ambulatory Limitations: no limitations - History of Present Illness Initial comments: 38-year-old male presents emergency department complaint of bilateral leg swelling right greater than left. Patient states they are achy in nature. States he has no history of this. Patient denies any history of DVT denies chest pain shortness of breath. Patient states he has been alcoholic states he went to rehab states that this is started. Patient offers no complaints. - Related Data Previous Rx's Medication Instructions Recorded levETIRAcetam [Keppra] 500 mg PO Q12HR #60 tab 07/20/23 Allergies Allergy/AdvReac Type Severity Reaction Status Date / Time No Known Allergies Allergy Verified 02/05/24 12:01 Review of Systems ROS Statement: Those systems with pertinent positive or pertinent negative responses have been documented in the HPI. ROS Other: All systems not noted in ROS Statement are negative. Past Medical History Past Medical History: Seizure Disorder Additional Past Medical History / Comment(s): PNEUMOTHORAX History of Any Multi-Drug Resistant Organisms: None Reported Past Surgical History: No Surgical Hx Reported Additional Past Surgical History / Comment(s): LEFT ARM SURGERY, Past Anesthesia/Blood Transfusion Reactions: No Reported Reaction Past Psychological History: Anxiety, Depression Smoking Status: Current every day smoker Past Alcohol Use History: Daily Past Drug Use History: Marijuana - Past Family History Father Family Medical History: Unable to Obtain Mother Family Medical History: Coronary Artery Disease (CAD) General Exam Limitations: no limitations General appearance: alert, in no apparent distress Head exam: Present: atraumatic, normocephalic, normal inspection Neck exam: Present: normal inspection, full ROM. Absent: tenderness, meningismus, lymphadenopathy Respiratory exam: Present: normal lung sounds bilaterally. Absent: respiratory distress, wheezes, rales, rhonchi, stridor Cardiovascular Exam: Present: regular rate, normal rhythm, normal heart sounds. Absent: systolic murmur, diastolic murmur, rubs, gallop, clicks Extremities exam: Present: pedal edema (Bilateral right greater than left pedal pulses equal bilaterally) Neurological exam: Present: alert, motor sensory deficit Course Vital Signs 02/05/24 02/05/24 11:59 13:30 Temperature 98 F Pulse Rate 83 72 Respiratory 20 18 Rate Blood Pressure 119/51 105/48 O2 Sat by Pulse 99 97 Oximetry Medical Decision Making - Medical Decision Making Was pt. sent in by a medical professional or institution (VERÓNICA Gibbons, BEHAVIORAL ANALYST, urgent care, hospital, or fpc...) When possible be specific @ -No Did you speak to anyone other than the patient for history (EMS, parent, family, police, friend...)? What history was obtained from this source @ -No Did you review nursing and triage notes (agree or disagree)? Why? @ -I reviewed and agree with nursing and triage notes Were old charts reviewed (outside hosp., previous admission, EMS record, old EKG, old radiological studies, urgent care reports/EKG's, fpc records)? Report findings @ -No old charts were reviewed Differential Diagnosis (chest pain, altered mental status, abdominal pain women, abdominal pain men, vaginal bleeding, weakness, fever, dyspnea, syncope, headache, dizziness, GI bleed, back pain, seizure, CVA, palpatations, mental health, musculoskeletal)? @ -Renal failure, congestive heart failure, leg edema, DVT EKG interpreted by me (3pts min.). @ -None X-rays interpreted by me (1pt min.). @ -None done CT interpreted by me (1pt min.). @ -None done U/S interpreted by me (1pt. min.). @Ultrasound venous Doppler right leg negative for acute DVT What testing was considered but not performed or refused? (CT, X-rays, U/S, labs)? Why? @ -None What meds were considered but not given or refused? Why? @ -None Did you discuss the management of the patient with other professionals (professionals i.e. VERÓNICA Gibbons, BEHAVIORAL ANALYST, lab, RT, psych nurse, manager social responsibility, circulating nurse, teacher, chief digital officer, casey saw operator)? Give summary @ -No Was smoking cessation discussed for >3mins.? @ -No Was critical care preformed (if so, how long)? @ -No Were there social determinants of health that impacted care today? How? (Homelessness, low income, unemployed, alcoholism, drug addiction, transportation, low edu. Level, literacy, decrease access to med. care, [facility], rehab)? @ -No Was there de-escalation of care discussed even if they declined (Discuss DNR or withdrawal of care, Hospice)? DNR status @ -No What co-morbidities impacted this encounter? (DM, HTN, Smoking, COPD, CAD, Cancer, CVA, ARF, Chemo, Hep., AIDS, mental health diagnosis, sleep apnea, morbid obesity)? @ -None Was patient admitted / discharged? Hospital course, mention meds given and route, prescriptions, significant lab abnormalities, going to OR and other pertinent info. @ -Disc patient with bilateral pedal edema patient will start compression stockings, elevation follow-up with PCP and return brands were discussed. Undiagnosed new problem with uncertain prognosis? @ -No Drug Therapy requiring intensive monitoring for toxicity (Heparin, Nitro, Insulin, Cardizem)? @ -No Were any procedures done? @ -No Diagnosis/symptom? @ -Leg edema Acute, or Chronic, or Acute on Chronic? @ -Acute Uncomplicated (without systemic symptoms) or Complicated (systemic symptoms)? @ -Uncomplicated Side effects of treatment? @ -No Exacerbation, Progression, or Severe Exacerbation? @ -No Poses a threat to life or bodily function? How? (Chest pain, [place], [place], pneumonia, PE, COPD, DKA, ARF, appy, cholecystitis, CVA, Diverticulitis, Homicidal, Suicidal, threat to staff... and all critical care pts) @ -No - Lab Data Result diagrams: 02/05/24 12:23 02/05/24 12:23 Lab Results 02/05/24 02/05/24 Range/Units 12:23 12:23 WBC 7.5 (3.8-10.6) k/uL RBC 4.79 (4.30-5.90) m/uL Hgb 14.6 (13.0-17.5) gm/dL Hct 44.4 (39.0-53.0) % MCV 92.7 (80.0-100.0) fL MCH 30.5 (25.0-35.0) pg MCHC 32.9 (31.0-37.0) g/dL RDW 12.4 (11.5-15.5) % Plt Count 217 (150-450) k/uL MPV 7.9 Neutrophils % 77 % Lymphocytes % 16 % Monocytes % 4 % Eosinophils % 1 % Basophils % 0 % Neutrophils # 5.8 (1.3-7.7) k/uL Lymphocytes # 1.2 (1.0-4.8) k/uL Monocytes # 0.3 (0-1.0) k/uL Eosinophils # 0.1 (0-0.7) k/uL Basophils # 0.0 (0-0.2) k/uL Sodium 138 (137-145) mmol/L Potassium 4.3 (3.5-5.1) mmol/L Chloride 110 H (98-107) mmol/L Carbon Dioxide 27 (22-30) mmol/L Anion Gap 1 mmol/L BUN 8 L (9-20) mg/dL Creatinine 0.79 (0.66-1.25) mg/dL Est GFR (CKD-EPI)AfAm >90 (>60 ml/min/1.73 sqM) Est GFR (CKD-EPI)NonAf >90 (>60 ml/min/1.73 sqM) Glucose 96 (74-99) mg/dL Calcium 8.9 (8.4-10.2) mg/dL Total Bilirubin 0.8 (0.2-1.3) mg/dL AST 25 (17-59) U/L ALT 22 (4-49) U/L Alkaline Phosphatase 79 (38-126) U/L NT-Pro-B Natriuret Pep 33 pg/mL Total Protein 5.7 L (6.3-8.2) g/dL Albumin 3.4 L (3.5-5.0) g/dL Disposition Clinical Impression: Leg edema Disposition: HOME SELF-CARE Condition: Stable Instructions (If sedation given, give patient instructions): Leg Edema (ED) Additional Instructions: Please return to the Emergency Department if symptoms worsen or any other concerns. Is patient prescribed a controlled substance at d/c from ED?: No Referrals: None,Stated [Primary Care Provider] - 1-2 days Time of Disposition: 13:39
[2024-02-05] MEDS: FUROSEMIDE 40 MG TAB PO STA (13:55)
[2024-02-05 14:20] VITALS: BP 110/60; PULSE 76; RESP 18; TEMP 97.9
== END 2024-02-05 13:58 | disposition home or self-care (01) ==
LOC: EC 11:55
DX: R60.0 Localized edema (principal); F17.200 Nicotine dependence, unspecified, uncomplicated; F12.90 Cannabis use, unspecified, uncomplicated
CPT/HCPCS: 36415; 80053; 83880; 85025; 99284